=== PATIENT | male | born 1945 | race Caucasian/White ===

== ENCOUNTER → 2020-08-25 12:47 | Outpatient (BNVA) | payer MEDICARE, MEDICAID, SELFPAY | PROVIDERS: PCP Internal Medicine; Referring Provider Internal Medicine; Visit Provider Anesthesiology | DX: M16.12 Unilateral primary osteoarthritis, left hip (principal) | CPT/HCPCS: 99212 ==

== ENCOUNTER → 2021-09-08 11:53 | Outpatient (BNVA) | payer MEDICARE, MEDICAID, SELFPAY | PROVIDERS: Visit Provider Orthopaedic Surgery | DX: M16.12 Unilateral primary osteoarthritis, left hip (principal) | CPT/HCPCS: 99202 ==

== ENCOUNTER → 2021-09-13 12:44 | Outpatient (BNVA) | payer MEDICARE, MEDICAID, SELFPAY | PROVIDERS: PCP Internal Medicine; Visit Provider Orthopaedic Surgery | DX: Z01.812 Encounter for preprocedural laboratory examination (principal); Z01.810 Encounter for preprocedural cardiovascular examination; D68.51 Activated protein C resistance ==

== ENCOUNTER 2021-09-26 | Outpatient (REF) | payer MEDICARE, MEDICAID, SELFPAY ==
--- NOTE | 2021-09-14 09:02 | ECG_ITS ---
Test Reason : Z01.810 Blood Pressure : / mmHG Vent. Rate : 076 BPM Atrial Rate : 076 BPM P-R Int : 210 ms QRS Dur : 108 ms QT Int : 382 ms P-R-T Axes : 039 -34 036 degrees QTc Int : 429 ms Sinus rhythm with 1st degree A-V block Left anterior fascicular block Minimal voltage criteria for LVH, may be normal variant ( Thomas product ) Nonspecific T wave abnormality Abnormal ECG No previous ECGs available Referred By: Donato Albrecht Electronically Signed By:GEOVANNY MUHAMMAD MD
[2021-09-14 09:07] LABS: MANUAL DIFF FLAG NO
[2021-09-14 09:43] LABS: Basophils Absolute Auto 0.1 X10*3/uL (0.0-0.2); Basophils Percent Auto 0.9 % (0-2); Eosinophils Absolute Auto 0.3 X10*3/uL (0.0-0.4); Eosinophils Percent Auto 3.8 % (0-4); Hematocrit 41.1 % (42.0-52.0); Imm Gran Abs Auto 0.02 X10*3/uL (0.00-0.03); Imm Gran Pct Auto 0.2 % (0.0-0.4); Lymphocytes Absolute Auto 2.3 X10*3/uL (1.2-4.9); Lymphocytes Percent Auto 27.9 % (20-40); Mean Corpuscular HGB Conc 31.6 g/dl (31.0-36.0); Mean Corpuscular Hemoglobin 27.9 pg (27.0-33.0); Mean Corpuscular Volume 88.2 fL (80.0-98.0); Mean Platelet Volume 10.4 fL (9.4-12.4); Monocytes Absolute Auto 0.6 X10*3/uL (0.1-1.2); Monocytes Percent Auto 7.5 % (2-11); Neutrophils Absolute Auto 4.9 x10*3/uL (2.0-8.3); Neutrophils Percent Auto 59.7 % (45-73); Platelet Count 196 X10*3/uL (160-400); Red Blood Count 4.66 X10*6/uL (4.60-5.80); Red Cell Distribution Width 13.1 % (11.0-16.0); White Blood Count 8.2 X10*3/uL (4.8-10.8)
[2021-09-14 09:52] LABS: Estimated Average Glucose 186 mg/dL; Hemoglobin A1c % 8.1 %
[2021-09-14 10:23] LABS: Anion Gap 9 (12-20); Blood Urea Nitrogen 18 mg/dL (9-16); Calcium 9.1 mg/dL (8.4-10.2); Carbon Dioxide 29 mmol/L (22-29); Chloride 104 mmol/L (96-108); Estimated Glomerular Filt Rate 41; Glucose Random 325 mg/dL (60-115); Potassium 3.9 mmol/L (3.3-5.1); Sodium 138 mmol/L (135-145)
[2021-09-19 12:52] LABS: Mixing Study - PT 11.5 sec (9.0-11.5); PTT LA 37 sec (< OR = 40)
== END 2021-09-26 00:01 ==
LOC: HO.PAT
PROVIDERS: PCP Internal Medicine; Visit Provider Orthopaedic Surgery
DX: Z01.810 Encounter for preprocedural cardiovascular examination (principal); Z01.812 Encounter for preprocedural laboratory examination; M16.12 Unilateral primary osteoarthritis, left hip; I44.0 Atrioventricular block, first degree; I44.4 Left anterior fascicular block; R94.31 Abnormal electrocardiogram [ECG] [EKG]
CPT/HCPCS: 36415; 80048; 83036; 85025; 85611; 85732; 93005

== ENCOUNTER 2022-02-23 12:49 | Outpatient (REF) | payer MEDICARE, MEDICAID, SELFPAY ==
--- NOTE | ~2022-02-23 | XR_ITS ---
EXAMINATION: XR PELVIS CLINICAL INFORMATION: Hip pain. COMPARISON: None TECHNIQUE: AP view of the pelvis. FINDINGS: There is severe loss of left hip joint space with moderate perihepatic spurring. There is deformity of left femoral head with mild foreshortening of the left femoral neck. Mild loss of right hip joint space with periarticular spurring seen. Rest of the pelvis is unremarkable. XR/XR pelvis 1-2V IMPRESSION: Severe left hip degenerative osteoarthritic changes with hypertrophic spurring similar to previous study from 07/14/2020. Mild right hip degenerative arthritis.
== END 2022-02-23 12:50 | disposition home or self-care (01) ==
LOC: HO.HOSX 12:49
PROVIDERS: Visit Provider Physician Assistant
DX: Z01.818 Encounter for other preprocedural examination (principal); M16.12 Unilateral primary osteoarthritis, left hip
CPT/HCPCS: 72170; 99212

== ENCOUNTER 2022-02-28 12:16 | Inpatient (IN) | payer MEDICARE, MEDICAID, SELFPAY ==
[2022-02-21 12:10] VITALS: BP 148/69; PULSE 75; RESP 16; O2SAT 96; BMI 36.2
[2022-02-21 13:51] LABS: Hemoglobin 12.2 g/dl (14.0-18.0); Mean Corpuscular HGB Conc 32.1 g/dl (31.0-36.0); Mean Corpuscular Volume 87.2 fL (80.0-98.0); Mean Platelet Volume 9.2 fL (9.4-12.4); Platelet Count 211 X10*3/uL (160-400); Red Blood Count 4.36 X10*6/uL (4.60-5.80); Red Cell Distribution Width 13.7 % (11.0-16.0); White Blood Count 8.9 X10*3/uL (4.8-10.8)
[2022-02-21 13:54] LABS: INTERNATIONAL NORM RATIO 1.1 (0.9-1.1); Prothrombin Time 12.8 SEC (9.9-13.0)
[2022-02-21 14:29] LABS: Anion Gap 10 (12-20); Blood Urea Nitrogen 28 mg/dL (9-16); Calcium 9.5 mg/dL (8.4-10.2); Carbon Dioxide 31 mmol/L (22-29); Chloride 107 mmol/L (96-108); Creatinine Clr Calc Pharmacy 39.9; Estimated Glomerular Filt Rate 38; Glucose Random 93 mg/dL (60-115); Potassium 4.6 mmol/L (3.3-5.1); Sodium 143 mmol/L (135-145)
[2022-02-21 15:05] LABS: MRSA Nasal PCR NEGATIVE (Negative); SA Nasal PCR NEGATIVE (Negative)
--- NOTE | 2022-02-27 08:55 | HO.ANESPROP2 ---
Documented by User: Bonita Youssef NP 02/27/22 09:04 HPI - Anesthesia Eval Consult details Narrative: 76yo Left Hip Total Replacement PCP cleared Eliquis for Factor V with hx PE (Infrarenal IVC filter in situ) PMFSH Active Problems Active Problems: All Active Problems (Updated 02/21/22 @ 12:08 by Haylee Brunner, FARSHAD) Osteoarthritis of left hip (Acute) Factor V Leiden (Acute) Past Medical History Medical History Aftercare following left shoulder joint replacement surgery Cardiomyopathy Chronic kidney disease Constipation Diabetes Edema of both lower extremities History of diverticulosis Hx of deep venous thrombosis Hx pulmonary embolism Hypercholesteremia Hypertension Mild cognitive impairment Osteoarthritis Presence of IVC filter Surgical History Surgical History History of bilateral cataract extraction Hx of colonoscopy Hx of shoulder surgery Social History Social History Are you a primary career development associate to a significant other at home: No Do you presently have visiting nurse or other home services: No Patient Tobacco Use Status: Never used Tobacco Use of substances other than those prescribed or required for medical reasons: No Have you been hit, kicked, punched, or otherwise hurt by someone within the past year? If so, by whom?: No Are you DNR?: No Advance Directives: No Advance Directives Information Provided: Yes Advance Directives on File: No Recently lost weight without trying: No Poor oral hygiene: No (partial upper + lower) Current occupational status: retired Meds Allergies Allergy/AdvReac Type Severity Reaction Status Date / Time hydralazine Allergy Severe Nose Verified 02/23/22 13:15 Bleed, severe blood loss, hot flashes atorvastatin [From Lipitor] AdvReac Joint Pain Verified 02/23/22 13:15 Home Medications Medication Instructions Recorded Confirmed Last Taken Type amitriptyline 25 mg tablet 50 mg PO BEDTIME 08/25/20 02/21/22 Unknown History apixaban 2.5 mg tablet 2.5 mg PO BID 08/25/20 02/21/22 02/25/22 History cholecalciferol (vitamin D3) 50 50 mcg PO DAILY 08/25/20 02/21/22 Unknown History mcg (2,000 unit) tablet fluticasone propionate 50 2 spray INTRANASAL DAILY PRN 08/25/20 02/21/22 Unknown History mcg/actuation nasal spray,suspension furosemide 20 mg tablet 20 mg PO DAILY 08/25/20 02/21/22 Unknown History glipizide 5 mg tablet 5 mg PO BID 08/25/20 02/21/22 Unknown History losartan 50 mg tablet 50 mg PO DAILY 08/25/20 02/21/22 Unknown History memantine 10 mg tablet 10 mg PO BID 08/25/20 02/21/22 Unknown History omeprazole 20 mg capsule,delayed 20 mg PO DAILY 08/25/20 02/21/22 02/28/22 History release polyethylene glycol 3350 17 1 g PO BID PRN 08/25/20 02/21/22 Unknown History gram/dose oral powder tamsulosin 0.4 mg capsule 0.4 mg PO DAILY 08/25/20 02/21/22 Unknown History amlodipine 5 mg tablet (Norvasc) 7.5 mg PO DAILY 02/21/22 02/21/22 02/28/22 History cyanocobalamin (vitamin B-12) 1,000 mcg QMONTH 02/21/22 02/21/22 Unknown History 1,000 mcg/mL injection syringe carvedilol 25 mg tablet 1 tab BID 02/28/22 02/28/22 Unknown History pravastatin 40 mg tablet 1 tab DAILY 02/28/22 02/28/22 Unknown History Exam Exam Date and Time: February 27, 2022 0855 Height,Weight and Vital Signs: Height 5 ft 6 in Weight 101.9 kg Last Vital Signs Pulse 75 02/21/22 12:10 Resp 16 02/21/22 12:10 BP 148/69 H 02/21/22 12:10 Pulse Ox 96 02/21/22 12:10 Pertinent Lab Results Pertinent Lab Results: Laboratory Tests 02/21/22 02/21/22 02/21/22 12:30 13:35 13:35 WBC 8.9 RBC 4.36 L Hgb 12.2 L Hct 38.0 L MCV 87.2 MCH 28.0 MCHC 32.1 RDW 13.7 Plt Count 211 MPV 9.2 L Absolute Nucleated RBC 0.000 Nucleated RBC % (auto) 0.0 PT INR Sodium Potassium Chloride Carbon Dioxide Anion Gap BUN Creatinine Estim Creat Clear Calc Estimated GFR Random Glucose Calcium Nasal Screen MRSA (PCR) NEGATIVE Nasal S. aureus Screen NEGATIVE Nasal MRSA/S.aureus Interp SEE NOTE Blood Type A Positive Antibody Screen NEGATIVE 02/21/22 02/21/22 13:35 13:35 WBC RBC Hgb Hct MCV MCH MCHC RDW Plt Count MPV Absolute Nucleated RBC Nucleated RBC % (auto) PT 12.8 INR 1.1 Sodium 143 Potassium 4.6 Chloride 107 Carbon Dioxide 31 H Anion Gap 10 L BUN 28 H Creatinine 1.73 H Estim Creat Clear Calc 39.9 Estimated GFR 38 Random Glucose 93 D Calcium 9.5 Nasal Screen MRSA (PCR) Nasal S. aureus Screen Nasal MRSA/S.aureus Interp Blood Type Antibody Screen Narrative Narrative: EKG 01/2022 SR, prolonged NM, QT but mostly unchanged from prior tracings Nuc stress 06/2021 no scintigraphic evidence of stress-induced ischemia Echo 06/2021 1. LV size is normal 2. Mild concentric LVH 3. Overall LV systolic function nml with EF 55-60% 4. No obvious RWMA 5. Diastolic filling pattern indication impaired relaxation 6. LA is mildly dilated 7. Mild aortic sclerosis without stenosis 8. No significant change from 02/2019 study Assessment and Plan Assessment Anesthesia Assessment: Chart Reviewed Documented by User: Cy Andrade MD 02/28/22 17:24 HPI - Anesthesia Eval Consult details Narrative: 76yo Left Hip Total Replacement PCP cleared Non ischemic Cardiomyopathy Eliquis for Factor V with hx PE (Infrarenal IVC filter in situ) eliquis stopped 2 days ago . [facility] Past Medical History Medical History Aftercare following left shoulder joint replacement surgery Cardiomyopathy Chronic kidney disease Constipation Diabetes Edema of both lower extremities History of diverticulosis Hx of deep venous thrombosis Hx pulmonary embolism Hypercholesteremia Hypertension Mild cognitive impairment Osteoarthritis Presence of IVC filter Functional capacity: independent ambulation Family History Family history of problems with anesthesia: No Surgical History Surgical History History of bilateral cataract extraction Hx of colonoscopy Hx of shoulder surgery History of Problems with Anesthesia: No Social History Social History Are you a primary career development associate to a significant other at home: No Do you presently have visiting nurse or other home services: No Patient Tobacco Use Status: Never used Tobacco Use of substances other than those prescribed or required for medical reasons: No Have you been hit, kicked, punched, or otherwise hurt by someone within the past year? If so, by whom?: No Are you DNR?: No Advance Directives: No Advance Directives Information Provided: Yes Advance Directives on File: No Recently lost weight without trying: No Poor oral hygiene: No (partial upper + lower) Current occupational status: retired Meds Allergies Allergy/AdvReac Type Severity Reaction Status Date / Time hydralazine Allergy Severe Nose Verified 02/23/22 13:15 Bleed, severe blood loss, hot flashes atorvastatin [From Lipitor] AdvReac Joint Pain Verified 02/23/22 13:15 Home Medications Medication Instructions Recorded Confirmed Last Taken Type amitriptyline 25 mg tablet 50 mg PO BEDTIME 08/25/20 02/21/22 Unknown History apixaban 2.5 mg tablet 2.5 mg PO BID 08/25/20 02/21/22 02/25/22 History cholecalciferol (vitamin D3) 50 50 mcg PO DAILY 08/25/20 02/21/22 Unknown History mcg (2,000 unit) tablet fluticasone propionate 50 2 spray INTRANASAL DAILY PRN 08/25/20 02/21/22 Unknown History mcg/actuation nasal spray,suspension furosemide 20 mg tablet 20 mg PO DAILY 08/25/20 02/21/22 Unknown History glipizide 5 mg tablet 5 mg PO BID 08/25/20 02/21/22 Unknown History losartan 50 mg tablet 50 mg PO DAILY 08/25/20 02/21/22 Unknown History memantine 10 mg tablet 10 mg PO BID 08/25/20 02/21/22 Unknown History omeprazole 20 mg capsule,delayed 20 mg PO DAILY 08/25/20 02/21/22 02/28/22 History release polyethylene glycol 3350 17 1 g PO BID PRN 08/25/20 02/21/22 Unknown History gram/dose oral powder tamsulosin 0.4 mg capsule 0.4 mg PO DAILY 08/25/20 02/21/22 Unknown History amlodipine 5 mg tablet (Norvasc) 7.5 mg PO DAILY 02/21/22 02/21/22 02/28/22 History cyanocobalamin (vitamin B-12) 1,000 mcg QMONTH 02/21/22 02/21/22 Unknown History 1,000 mcg/mL injection syringe carvedilol 25 mg tablet 1 tab BID 02/28/22 02/28/22 Unknown History pravastatin 40 mg tablet 1 tab DAILY 02/28/22 02/28/22 Unknown History Exam Airway Mallampati Class: II TM Dist: >3cm Neck ROM: Full Partial: Upper and Lower Loose/Missing/Broken Teeth: Yes (Poor dentition ) Heart: S1, S2 Lungs: b/l breath sounds Assessment and Plan Assessment Anesthesia Assessment: Anesthesia Plan Discussed Final Anesthetic Review Family History of Problems with Anesthesia: No History of Problems with Anesthesia: No NPO: Yes ASA Class: III Final Preanesthetic Review: Meds/Allgs Chart Reviewed, Consent Obtained/Reviewed and Anes Risks/Benef Reviewed Patient Risk: High Procedure Risk: Intermediate Anesthetic Plan Anesthetic Plan: GA Disposition: Inp. Admit - Standard Bed
[2022-02-28] VITALS (11 sets, daily range): BP systolic 88–155; BP diastolic 49–78; PULSE 58–91; RESP 16–18; TEMP 36.1–36.6; O2SAT 94–99
--- NOTE | ~2022-02-28 | XR_ITS ---
EXAMINATION: XR PELVIS CLINICAL INFORMATION: Left total hip arthroplasty. COMPARISON: Pelvis exam 02/15/2022 TECHNIQUE: AP view of the pelvis. FINDINGS: Status post left hip replacement. Orthopedic components in position. No fracture or loosening. There is no dislocation. Surgical skin clips in the lateral side soft tissues of the hip. XR/XR pelvis 1-2V IMPRESSION: Status post left hip replacement.
--- NOTE | ~2022-02-28 | XR_ITS ---
EXAMINATION: XR CHEST CLINICAL INFORMATION: Fever COMPARISON: None TECHNIQUE: Frontal view of the chest was obtained. FINDINGS: The cardiac and mediastinal contours are normal. There is slight elevation of the left hemidiaphragm. The lungs are clear. There is no pleural effusion or pneumothorax. There are old left rib fractures. There are degenerative changes of the spine. XR/XR chest 1V IMPRESSION: No evidence for acute disease in the chest.
--- NOTE | ~2022-02-28 | NM_ITS ---
EXAMINATION: PULMONARY PERFUSION STUDY CLINICAL INFORMATION: Extensive DVTs, postop hypoxia. COMPARISON: No previous lung scan is available for comparison. A radiograph of the chest dated 03/03/2022 is the most recent chest radiograph available for comparison. TECHNIQUE: Following the intravenous administration of 4.0 mCi Tc-99m MAA an 8-view perfusion study was performed using a dual detector gamma scintillation camera. No ventilation images were obtained. FINDINGS: Perfusion images: No segmental perfusion defects are present. There is elevation of the left hemidiaphragm and the cardiac and mediastinum appear mildly dilated. There are no focal anatomic appearing perfusion defects. Minimal heterogeneity is present bilaterally. NM/NM pul perfusion IMPRESSION: Very low probability of pulmonary embolism.
[2022-02-28] MEDS: Lactated Ringers 1,000 ML 100 ML IVCONT ×2 (12:34→18:32)
[2022-02-28] MEDS: oxyCODONE HCl ER 10 MG TAB.ER.12H PO (12:44)
[2022-02-28 12:47] LABS: COVID-19 Test Negative (Negative)
[2022-02-28 12:47] LABS: Hematocrit 37.4 % (42.0-52.0)
--- NOTE | 2022-02-28 13:46 | MHC.SHP ---
Pre-Procedural Eval Section A Date of Service: 02/28/22 The patient is an INPATIENT: No Changes since office visit: Yes Patient answered all questions; No Cold of Flu in the past 2 weeks, No New Medical Problems and No Changes in Medication The History & Physical has been completed within 30 days and I have reviewed it.: Yes Section B Chief Complaint: LT MEGHAN Allergies: Allergies Allergy/AdvReac Type Severity Reaction Status Date / Time hydralazine Allergy Severe Nose Verified 02/23/22 13:15 Bleed, severe blood loss, hot flashes atorvastatin [From Lipitor] AdvReac Joint Pain Verified 02/23/22 13:15 Plan I have reviewed the history and physical and performed a pertinent physical examination on my patient. No changes have occurred unless specified.
[2022-02-28 15:01] LABS: Glucose, Whole Blood 127 mg/dL (60-115)
--- NOTE | 2022-02-28 16:36 | P.BOP_ITS ---
Brief Operative Note Date of Service: 02/28/22 Pre-op diagnosis: Left hip OA Post-op diagnosis: same Procedure: Left MEGHAN Implants: [employer] Trident2 60mm cup/2 35mm acetabular screws. Accolade2 #6 127 deg with + 5 CoCr 36 femoral head Surgeon: Donato Albrecht MD Anesthesia: GETA and local Was an Administrative Asst used for this Procedure?: Yes Administrative Asst: Lukasz Cuenca Estimated blood loss (mL): 200 IV fluids (mL): 1,000 Pathology: other Condition: stable Disposition: PACU
--- NOTE | 2022-02-28 17:07 | PHA.MEDREC ---
Pharmacy Consult ? Medication Reconciliation Pharmacy has completed the medication reconciliation.
[2022-02-28] MEDS: oxyCODONE HCl Immed Release 5 MG TABLET PO (17:45)
--- NOTE | 2022-02-28 20:07 | PC.NURSE ---
Patient arrived to the floor from surgery for R total hip, oxygen was 79% on 2.5 L NC, Increased to 4L and retook O2, it went up to 99. Family was concerned with the sob initially, PA aware and told me to re-assure the family that it was because of anesthesia medications, and would be fine.
[2022-02-28] MEDS: carvediloL 25 MG TABLET PO (20:38)
[2022-02-28] MEDS: Celecoxib 200 MG CAPSULE PO (20:38)
[2022-02-28] MEDS: Docusate Sodium 100 MG CAPSULE PO (20:38)
[2022-02-28] MEDS: Memantine HCl 10 MG TABLET PO (20:38)
[2022-02-28] MEDS: Amitriptyline HCl 50 MG TABLET PO (20:38)
[2022-02-28] MEDS: ceFAZolin Sodium/Dextrose,Iso 2 GM/50 ML PIGGYBACK IV (20:39)
[2022-03-01] MEDS: oxyCODONE HCl Immed Release 5 MG TABLET 10 MG PO ×4 (00:44→21:42)
[2022-03-01] MEDS: Lactated Ringers 1,000 ML 100 ML IVCONT (02:08)
[2022-03-01 03:30] VITALS: BP 128/77; PULSE 90; RESP 18; TEMP 36.3; O2SAT 97
[2022-03-01 06:15] LABS: MANUAL DIFF FLAG NO
[2022-03-01 06:20] LABS: Basophils Percent Auto 0.1 % (0-2); Hematocrit 32.2 % (42.0-52.0); Hemoglobin 10.2 g/dl (14.0-18.0); Imm Gran Abs Auto 0.05 X10*3/uL (0.00-0.03); Imm Gran Pct Auto 0.3 % (0.0-0.4); Lymphocytes Absolute Auto 1.4 X10*3/uL (1.2-4.9); Lymphocytes Percent Auto 9.9 % (20-40); Mean Corpuscular HGB Conc 31.7 g/dl (31.0-36.0); Mean Corpuscular Hemoglobin 28.3 pg (27.0-33.0); Mean Corpuscular Volume 89.2 fL (80.0-98.0); Monocytes Absolute Auto 0.9 X10*3/uL (0.1-1.2); Monocytes Percent Auto 6.1 % (2-11); Neutrophils Percent Auto 83.6 % (45-73); Platelet Count 187 X10*3/uL (160-400); Red Blood Count 3.61 X10*6/uL (4.60-5.80); Red Cell Distribution Width 13.8 % (11.0-16.0); White Blood Count 14.4 X10*3/uL (4.8-10.8)
[2022-03-01 06:58] LABS: Anion Gap 13 (12-20); Blood Urea Nitrogen 25 mg/dL (9-16); Calcium 8.8 mg/dL (8.4-10.2); Carbon Dioxide 25 mmol/L (22-29); Chloride 104 mmol/L (96-108); Creatinine Clr Calc Pharmacy 41.4; Estimated Glomerular Filt Rate 40; Glucose Fasting 210 mg/dL (60-99); Potassium 4.5 mmol/L (3.3-5.1); Sodium 137 mmol/L (135-145)
[2022-03-01 07:41] VITALS: BP 132/66; PULSE 86; RESP 18; TEMP 36.5; O2SAT 97
--- NOTE | 2022-03-01 07:47 | MHC.CM.PN ---
Addendum entered by Krystin Mccartney 03/01/22 09:33: CORRECTION :CONTACT NUMBER IS [phone] Addendum entered by Krystin Mccartney 03/01/22 08:44: MESSAGE LEFT FOR GIANCARLO AT NUMBER BELOW WITH A REQUEST FOR A CALL BACK TO COMPLETE ASSESSMENT. Original Note: PATIENT LIVES WITH AND DAUGHTER DAUGHTER AND SON ARE HCP AGENTS AND A COPY IS REQUESTED. HE RECENTLY OBTAINED A 4 WHEELED WALKER FOR THE HOME FAMILY PROVIDES TRANSPORTATION WHERE NEEDED. HE ASKS THAT CASE MANAGEMENT CONTACT HIS DAUGHTER./HCP GIANCARLO @ [phone] FOR ANY FURTHER QUESTIONS, HE IS FEELING CONFUSED RIGHT NOW CASE MANAGEMENT WILL FOLLOW UP AT A LATER HOUR AWAITING PT EVALUATION FOR DC PLANS IMM 03/01 IN CHART
--- NOTE | 2022-03-01 07:48 | PM.PNORT ---
Subjective Subjective Date of Service: 03/01/22 Interval history: POD1 s/p LTHA. Patient is resting in bed comfortably. No overnight events. Pain is well managed. No additional complaints. Physical Exam Vital Signs: Vital Signs: Last Vital Signs Temp 97.3 F 03/01/22 03:30 Pulse 90 03/01/22 03:30 Resp 18 03/01/22 03:30 BP 128/77 03/01/22 03:30 Pulse Ox 97 03/01/22 03:30 BMI result Body Mass Index 36.2 Const: General: cooperative, healthy appearing and no acute distress Resp: Effort & Inspection: normal respiratory effort and able to speak in complete sentences Cardio: Rate: regular rate Peripheral pulses: Peripheral pulses 2+ throughout GI: Palpation (GI): Soft to palpation Skin: Lesions: no lesions Rashes: no rashes Extrem: Other: Lt hip Aquacel is clean, dry, and intact. Patient able to dorsiflex and plantarflex. NVI. Procedures Date of Service Date of Service: 03/01/22 Progress Note: A&P Assessment and plan (1) Status post total hip replacement, left: Status: Acute Assessment and Plan: Continue pain mgmnt Begin ASA for dvt ppx begin PT for LTHA- WBAT Dispo planning-Pending PT eval, pain mgmnt Time Spent With Patient Time: Total time spent is greater than 50% in coordination of care (as documented) at patient's floor/unit and/or counseling patient: Quality Stroke Does the patient have a stroke diagnosis?: No VTE Prior VTE?: No VTE Risk Level:: Surgical - very high VTE Device Contraindication: N/A - Device Ordered VTE Drug Contraindication: N/A - Med Ordered
--- NOTE | 2022-03-01 08:52 | W.PM.OPN ---
Operative Note Operative Note Date of Service: 03/01/22 Narrative: Pre-op diagnosis: Left hip OA Post-op diagnosis: same Procedure: Left MEGHAN Implants: [place] Trident2 60mm cup/2 35mm acetabular screws. Accolade2 #6 127 deg with + 5 CoCr 36 femoral head Surgeon: Donato Albrecht MD Anesthesia: GETA and local Was an Top Bottom Attaching Machine Operator used for this Procedure?: Yes Top Bottom Attaching Machine Operator: Lukasz Cuenca Estimated blood loss (mL): 200 IV fluids (mL): 1,000 Pathology: other Condition: stable Disposition: PACU Procedure in detail: Patient was brought into the operating room and placed in the right lateral decubitus position. All bony prominences were well padded and the limb was prepped and draped in standard sterile fashion. Time-out was called to identify proper site procedure proper surgeon IV antibiotics and 1 g of transaxemic acid were administered. I began by making a curvilinear incision over the posterolateral aspect of the greater trochanter. Dissection was taken down to the tensor fascia which was incised in line with the incision and a Charnley retractor was placed. Cautery was used to maintain hemostasis. A werewolf device was also used. The hip was internally rotated and the external rotators were identified. The vessels were cauterized and a full-thickness capsular/external rotator layer was developed starting just proximal to the piriformis. This layer was tagged and a dull Hohmann retractor was placed underneath the neck. The head could not be dislocated because of the engaging osteophties and superior and posterior acetabular ostopphyts. The posterior and superior pseudoacetabulum was resected with an osteotome and the head and neck were cut in-situ. There were large osteophytes off the neck that engaged under the inferior lip of the acetabulum. An oseotome was used to remove this just proximal to the lesser. this allowed dislocation of the head and a rongeur and ostetome were used to remove the head, neck and clean up around the greater trochanter. I started with a 50 reamer to medialize and sequentially reamed up to a size 59 and impacted a 60 at approximately 45 degrees of inclination and 25 degrees of version. There was minimal posterosuperior acetabulum and so 2 35 mm acetabular screws were placed using standard AO technique. I then placed a 20 deg post lipped liner and turned my attention to the femur. I identified the piriformis insertion and used this as a starting point for my lennie cutter. The medius tendon was protected with a Hibs retractor. I then used a Charnley awl to identify the canal and a curved curette to remove the lateral bone. I irrigated copiously. I then sequentially broached in the patient's natural version to a size 6, 127 deg and placed my trial implants. Using a +5 trial head I took the hip through range of motion. I was satisfied with the stability and length. Therefore I removed all instrumentation and copiously irrigated. I placed my final femoral implant and again took the hip through range of motion and was satisfied with the stability and length usiung a +5. A final CoCr implant was impacted in place. I then irrigated for 3 minutes with iodine and performed a capsular closure with 2.0 fiberwire, Tena's fascia with 0 Vicryl, subcuticular with 2-0 Vicryl and the skin with natasha. Patient was placed into a sterile dressing. Radiographs were obtained at the completion of the case and I was satisfied with the component position. Patient was extubated brought to the recovery room in stable condition.
[2022-03-01] MEDS: Docusate Sodium 100 MG CAPSULE PO ×2 (09:05→21:11)
[2022-03-01] MEDS: Memantine HCl 10 MG TABLET PO ×2 (09:05→21:11)
[2022-03-01] MEDS: Celecoxib 200 MG CAPSULE PO ×2 (09:05→21:12)
[2022-03-01] MEDS: Tamsulosin HCL 0.4 MG CAPSULE PO (09:05)
[2022-03-01] MEDS: Omeprazole 20 MG CAPSULE.DR PO (09:06)
[2022-03-01] MEDS: carvediloL 25 MG TABLET PO ×2 (09:06→21:12)
--- NOTE | 2022-03-01 09:33 | MHC.CM.PN ---
SON KRISTIN IS IN ROOM. PATIENT GIVES PERMISSION TO SPEAK WITH SON. SON/HCP SAYS THAT PATIENT IS NOT COVID VACCINATED. PCP IS DR KIANNA GOMEZ OF [facility] UPDATE MADE IN QUICK TASK. FAMILY WANTS PATIENT HOME WITH SERVICES OVER SNF. AGREABLE TO SNF OR ACUTE IF RECOMMENDED AND WILL DISCUSS [facility] DC NEARS.
--- NOTE | 2022-03-01 10:05 | P.CONHOSP_ITS ---
History of Present Illness Data of Consult Service Date: 03/01/22 Primary Care Provider: Toy Velásquez MD HPI Reason for consult: Factor 5 Leiden, DM This is a 76 yo M with a PMH as outlined below who is admitted under the orthopedic services post [facility]. Medical consult requested for mgmt of medical issues. Pt is seen and examined in his room. He reports some pain with ambulation. Denies any chest pain or sob at rest. Does endorse HENDERSON while working with physical therapy. Denies fevers or chills. No cough. No abd pain. Review of Systems Review of Systems: negative except HPI [facility] Medical History Aftercare following left shoulder joint replacement surgery Cardiomyopathy Chronic kidney disease Constipation Diabetes Edema of both lower extremities History of diverticulosis Hx of deep venous thrombosis Hx pulmonary embolism Hypercholesteremia Hypertension Mild cognitive impairment Osteoarthritis Presence of IVC filter Functional capacity: independent ambulation Surgical History History of bilateral cataract extraction Hx of colonoscopy Hx of shoulder surgery Social History Household Members: Significant Other Housing: House Are you a primary child day care provider to a significant other at home: No Do you presently have visiting nurse or other home services: No Patient Tobacco Use Status: Never used Tobacco Use of substances other than those prescribed or required for medical reasons: No Currently Displaying Signs/Symptoms of Drug Intoxication Withdrawal: No Have you been hit, kicked, punched, or otherwise hurt by someone within the past year? If so, by whom?: No Are you DNR?: No Advance Directives: No Advance Directives Information Provided: Yes Advance Directives on File: No Do you have thoughts of harming others: None Do you have a plan to hurt others: No Plan Recently lost weight without trying: Yes How much weight loss: 2-13 pounds Poor oral hygiene: No (partial upper + lower) service: No Current occupational status: retired Meds Allergies Allergy/AdvReac Type Severity Reaction Status Date / Time hydralazine Allergy Severe Nose Verified 02/23/22 13:15 Bleed, severe blood loss, hot flashes atorvastatin [From Lipitor] AdvReac Joint Pain Verified 02/23/22 13:15 Active Medications: Current Medications Acetaminophen (Acetaminophen 325 Mg Tablet) 650 mg PO Q6H PRN PRN Reason: Pain, Mild (Pain Scale 1-3) Amitriptyline HCl (Amitriptyline Hcl 50 Mg Tablet) 50 mg PO BEDTIME [facility] Last Admin: 02/28/22 20:38 Dose: 50 mg Documented by: Carvedilol (Carvedilol 25 Mg Tablet) 25 mg PO BID [facility]; Protocol Last Admin: 03/01/22 09:06 Dose: 25 mg Documented by: Celecoxib (Celecoxib 200 Mg Capsule) 200 mg PO BID [facility] Last Admin: 03/01/22 09:05 Dose: 200 mg Documented by: Docusate Sodium (Docusate Sodium 100 Mg Capsule) 100 mg PO BID [facility] Last Admin: 03/01/22 09:05 Dose: 100 mg Documented by: Enoxaparin Sodium (Enoxaparin Sodium 40 Mg/0.4 Ml Syringe) 40 mg SUBCUT Q24H [facility] Fluticasone Propionate (Fluticasone Propionate Nasal 16 Gm [place]) 2 spray NOSTRIL-B DAILY PRN PRN Reason: Dry Nasal Passages Hydromorphone HCl (Hydromorphone Hcl 1 Mg/Ml Syringe) 0.25 mg IVPUSH Q4H PRN; Protocol PRN Reason: Pain, Severe (Pain Scale 7-10) Memantine (Memantine Hcl 10 Mg Tablet) 10 mg PO BID [facility] Last Admin: 03/01/22 09:05 Dose: 10 mg Documented by: Omeprazole (Omeprazole 20 Mg Capsule.) 20 mg PO DAILY [facility] Last Admin: 03/01/22 09:06 Dose: 20 mg Documented by: Ondansetron HCl (Ondansetron Hcl 4 Mg/2 Ml Vial) 4 mg IVPUSH Q8H PRN PRN Reason: Nausea and Vomiting Oxycodone HCl (Oxycodone Hcl Immed Release 5 Mg Tablet) 10 mg PO Q4H PRN PRN Reason: Pain, Moderate (Pain Scale 4-6 Last Admin: 03/01/22 06:18 Dose: 10 mg Documented by: Sodium Chloride (0.9 % Sodium Chloride Flush 3 Ml Syringe) 3 ml IVFLUSH QSHIFT [facility] Last Admin: 03/01/22 09:06 Dose: Not Given Documented by: Tamsulosin HCl (Tamsulosin Hcl 0.4 Mg Capsule) 0.4 mg PO DAILY [facility] Last Admin: 03/01/22 09:05 Dose: 0.4 mg Documented by: Home Medications Medication Instructions Recorded Confirmed Last Taken Type amitriptyline 25 mg tablet 50 mg PO BEDTIME 08/25/20 02/21/22 Unknown History apixaban 2.5 mg tablet 2.5 mg PO BID 08/25/20 02/21/22 02/25/22 History cholecalciferol (vitamin D3) 50 50 mcg PO DAILY 08/25/20 02/21/22 Unknown History mcg (2,000 unit) tablet fluticasone propionate 50 2 spray INTRANASAL DAILY PRN 08/25/20 02/21/22 Unknown History mcg/actuation nasal spray,suspension furosemide 20 mg tablet 20 mg PO DAILY 08/25/20 02/21/22 Unknown History glipizide 5 mg tablet 5 mg PO BID 08/25/20 02/21/22 Unknown History losartan 50 mg tablet 50 mg PO DAILY 08/25/20 02/21/22 Unknown History memantine 10 mg tablet 10 mg PO BID 08/25/20 02/21/22 Unknown History omeprazole 20 mg capsule,delayed 20 mg PO DAILY 08/25/20 02/21/22 02/28/22 History release polyethylene glycol 3350 17 1 g PO BID PRN 08/25/20 02/21/22 Unknown History gram/dose oral powder tamsulosin 0.4 mg capsule 0.4 mg PO DAILY 08/25/20 02/21/22 Unknown History amlodipine 5 mg tablet (Norvasc) 7.5 mg PO DAILY 02/21/22 02/21/22 02/28/22 History cyanocobalamin (vitamin B-12) 1,000 mcg QMONTH 02/21/22 02/21/22 Unknown History 1,000 mcg/mL injection syringe carvedilol 25 mg tablet 1 tab BID 02/28/22 02/28/22 Unknown History pravastatin 40 mg tablet 1 tab DAILY 02/28/22 02/28/22 Unknown History Physical Exam Vital Signs and Narrative: Vital Signs: Last Vital Signs Temp 97.7 F 03/01/22 07:41 Pulse 86 03/01/22 07:41 Resp 18 03/01/22 07:41 BP 132/66 03/01/22 07:41 Pulse Ox 97 03/01/22 07:41 BMI result Body Mass Index 36.2 Const: Other: General - no acute distress, appears comfortable Cardiovascular - regular rate and rhythm, S1-S2 Lungs - normal respiratory effort, clear to auscultation bilaterally, no wheezing Abdomen - soft, nontender, no rebound or guarding Extremities - no edema bilaterally Neuro - awake and alert, no focal deficits Results Labs CBC and Chem 7: 03/01/22 05:23 03/01/22 05:23 Labs: Laboratory Results - last 24 hr 02/28/22 02/28/22 03/01/22 12:22 12:38 05:23 MCV 89.2 MCH 28.3 MCHC 31.7 RDW 13.8 Plt Count 187 MPV 10.0 Immature Gran % (Auto) 0.3 Neut % (Auto) 83.6 H Lymph % (Auto) 9.9 L [place] % (Auto) 6.1 Eos % (Auto) 0.0 Baso % (Auto) 0.1 Lymph # (Auto) 1.4 [place] # (Auto) 0.9 Eos # (Auto) 0.0 Baso # (Auto) 0.0 Abs Immat Gran (auto) 0.05 H Absolute Neuts (auto) 12.0 H Absolute Nucleated RBC 0.000 Nucleated RBC % (auto) 0.0 Anion Gap Estim Creat Clear Calc Estimated GFR POC Glucose 127 H Fasting Glucose Calcium COVID-19 (YVETTE) Negative COVID-19 Clin Com See Note 03/01/22 05:23 MCV MCH MCHC RDW Plt Count MPV Immature Gran % (Auto) Neut % (Auto) Lymph % (Auto) [place] % (Auto) Eos % (Auto) Baso % (Auto) Lymph # (Auto) [place] # (Auto) Eos # (Auto) Baso # (Auto) Abs Immat Gran (auto) Absolute Neuts (auto) Absolute Nucleated RBC Nucleated RBC % (auto) Anion Gap 13 Estim Creat Clear Calc 41.4 Estimated GFR 40 POC Glucose Fasting Glucose 210 H Calcium 8.8 D COVID-19 (YVETTE) COVID-19 Clin Com Imaging Radiologist's Impressions: Impressions Pelvis X-Ray 02/28/22 16:30 IMPRESSION: Status post left hip replacement. Assessment and Plan (1) Factor V Leiden: Status: Acute Plan This is a 76 yo M with a PMH as outlined below who is admitted under the orthopedic services post [facility]. Medical consult requested for mgmt of medical issues. 1. History of PE / Factor V Leiden def. Resume Eliquis (renally dosed) when okay from surgical persepctive agree with subut. Lovenox in the interim 2. DM hold oral meds use sliding scale (ordered) check POC (ordered) 3. HTN continue coreg agree with holding norvasc today, re-eval tomorrow 4. CKD 3 monitor renal function discontinue IVF 5. Mild cognitive impairment continue baseline meds 6. Cardiomyopathy d/c IVF continue baseline meds Full Code DVT pptx -- Eluqis when able (Lovenox for now) Will follow the patient with you.
[2022-03-01 11:51] VITALS: BP 114/59; PULSE 80; RESP 18; TEMP 36.7; O2SAT 96
[2022-03-01 11:57] LABS: Glucose, Whole Blood 212 mg/dL (60-115)
[2022-03-01] MEDS: 0.9 % Sodium Chloride Flush 3 ML SYRINGE IVFLUSH (14:16)
[2022-03-01] MEDS: Enoxaparin Sodium 40 MG/0.4 ML SYRINGE SUBCUT (14:16)
--- NOTE | 2022-03-01 15:28 | HO.POSTANES ---
Post Anesthesia Evaluation Post Anesthesia Evaluation Vital Signs: Vital Signs Temp Pulse Resp BP Pulse Ox 03/01/22 11:51 98.1 F 80 18 114/59 L 96 03/01/22 07:41 97.7 F 86 18 132/66 97 03/01/22 03:30 97.3 F 90 18 128/77 97 Anesthesia: General Mental Status: Awake Pain Control: Satisfactory Nausea/Vomiting: None Hydration: Adequate Anesthesia-Related Issues: No Anes. Related Issues
[2022-03-01 15:42] VITALS: BP 110/51; PULSE 84; RESP 18; TEMP 36.6; O2SAT 94
[2022-03-01 16:12] LABS: Glucose, Whole Blood 132 mg/dL (60-115)
[2022-03-01 19:50] VITALS: BP 112/53; PULSE 87; RESP 17; TEMP 36.8; O2SAT 92
[2022-03-01 20:25] LABS: Glucose, Whole Blood 136 mg/dL (60-115)
[2022-03-01] MEDS: Amitriptyline HCl 50 MG TABLET PO (21:12)
[2022-03-01] MEDS: polyethylene glycoL 3350 17 GM POWD.PACK PO (22:44)
[2022-03-01 23:27] VITALS: BP 99/55; PULSE 83; RESP 16; TEMP 36.6; O2SAT 92
[2022-03-02] MEDS: 0.9 % Sodium Chloride Flush 3 ML SYRINGE IVFLUSH ×2 (00:19→11:22)
[2022-03-02 03:18] VITALS: BP 104/55; PULSE 86; RESP 16; TEMP 36.8; O2SAT 93
[2022-03-02 05:43] LABS: MANUAL DIFF FLAG NO
[2022-03-02 05:45] LABS: Basophils Percent Auto 0.2 % (0-2); Eosinophils Percent Auto 0.1 % (0-4); Hematocrit 26.1 % (42.0-52.0); Hemoglobin 8.2 g/dl (14.0-18.0); Imm Gran Abs Auto 0.05 X10*3/uL (0.00-0.03); Imm Gran Pct Auto 0.4 % (0.0-0.4); Lymphocytes Percent Auto 16.6 % (20-40); Mean Corpuscular HGB Conc 31.4 g/dl (31.0-36.0); Mean Corpuscular Hemoglobin 27.9 pg (27.0-33.0); Mean Corpuscular Volume 88.8 fL (80.0-98.0); Mean Platelet Volume 9.7 fL (9.4-12.4); Monocytes Absolute Auto 1.4 X10*3/uL (0.1-1.2); Monocytes Percent Auto 11.1 % (2-11); Neutrophils Absolute Auto 8.8 x10*3/uL (2.0-8.3); Neutrophils Percent Auto 71.6 % (45-73); Platelet Count 162 X10*3/uL (160-400); Red Blood Count 2.94 X10*6/uL (4.60-5.80); Red Cell Distribution Width 14.3 % (11.0-16.0); White Blood Count 12.3 X10*3/uL (4.8-10.8)
[2022-03-02 06:03] LABS: Anion Gap 12 (12-20); Blood Urea Nitrogen 43 mg/dL (9-16); Calcium 8.4 mg/dL (8.4-10.2); Carbon Dioxide 24 mmol/L (22-29); Chloride 106 mmol/L (96-108); Creatinine Clr Calc Pharmacy 26.8; Estimated Glomerular Filt Rate 24; Glucose Fasting 143 mg/dL (60-99); Potassium 3.9 mmol/L (3.3-5.1); Sodium 138 mmol/L (135-145)
[2022-03-02 07:42] LABS: Glucose, Whole Blood 122 mg/dL (60-115)
[2022-03-02 07:43] VITALS: BP 112/56; PULSE 83; RESP 17; TEMP 37; O2SAT 92
--- NOTE | 2022-03-02 09:07 | P.DS_ITS ---
DS: Providers Provider Date of Service: 03/02/22 Date of admission: 02/28/22 12:16 Primary care physician: Toy Velásquez MD Consults: 02/28/22 17:42 Consult to Hospitalist Routine Consulting Provider: Hospitalist Reason For Exam: FACTOR 5 LEIDEN, DM DS: Diagnosis Discharge Diagnosis (1) Factor V Leiden: Status: Acute DS: Summary Hospital Course Hospital Course: The patient underwent a successful left total hip arthroplasty, they were transferred to PACU and then to the floor to recover. During their stay, their vitals were stable, afebrile at 98.6. Labs were unremarkable, H/H 8.2/26.1. POD 1 they were started on Lovenox for DVT ppx, they also received Physical Therapy services twice a day. Prior to discharge, their dressing was changed, incision clean dry and intact, new Aquacel dressing applied and the plan was to be discharged home with VNA services. Time Spent with Patient Time attestation: Total time spent providing and/or coordinating discharge services: Discharge coordination time: Less than 30 minutes Quality: Safe Use of Opioids Does Pt have an Active Cancer Diagnosis on the Problem List?: No Quality: Stroke Does the patient have a stroke diagnosis?: No Physical Exam Vital Signs: Vital Signs: Last Vital Signs Temp 98.6 F 03/02/22 07:43 Pulse 83 03/02/22 07:43 Resp 17 03/02/22 07:43 BP 112/56 L 03/02/22 07:43 Pulse Ox 92 03/02/22 07:43 BMI result Body Mass Index 36.2 Const: General: cooperative, healthy appearing and no acute distress Resp: Effort & Inspection: normal respiratory effort and able to speak in complete sentences Cardio: Rate: regular rate Peripheral pulses: Peripheral pulses 2+ throughout GI: Palpation (GI): Soft to palpation Skin: Lesions: no lesions Rashes: no rashes Extrem: Other: Left hip natasha intact. Incision site is well approximated. No drained. No erythema. New Aquacel dressing applied. NVI. DS: Data Data Completed and Pending Pending studies at discharge: Pending at discharge 02/28/22 16:14 Surgical [PTH] Routine Labs on day of discharge: Laboratory Results - last 24 hr 03/01/22 03/01/22 03/01/22 11:48 15:44 19:53 WBC RBC Hgb Hct MCV MCH MCHC RDW Plt Count MPV Immature Gran % (Auto) Neut % (Auto) Lymph % (Auto) [place] % (Auto) Eos % (Auto) Baso % (Auto) Lymph # (Auto) [place] # (Auto) Eos # (Auto) Baso # (Auto) Abs Immat Gran (auto) Absolute Neuts (auto) Absolute Nucleated RBC Nucleated RBC % (auto) Sodium Potassium Chloride Carbon Dioxide Anion Gap BUN Creatinine Estim Creat Clear Calc Estimated GFR POC Glucose 212 H 132 H 136 H Fasting Glucose Calcium 03/02/22 03/02/22 03/02/22 05:27 05:27 07:27 WBC 12.3 H RBC 2.94 L Hgb 8.2 L Hct 26.1 L MCV 88.8 MCH 27.9 MCHC 31.4 RDW 14.3 Plt Count 162 MPV 9.7 Immature Gran % (Auto) 0.4 Neut % (Auto) 71.6 Lymph % (Auto) 16.6 L [place] % (Auto) 11.1 H Eos % (Auto) 0.1 Baso % (Auto) 0.2 Lymph # (Auto) 2.0 [place] # (Auto) 1.4 H Eos # (Auto) 0.0 Baso # (Auto) 0.0 Abs Immat Gran (auto) 0.05 H Absolute Neuts (auto) 8.8 H Absolute Nucleated RBC 0.000 Nucleated RBC % (auto) 0.0 Sodium 138 Potassium 3.9 Chloride 106 Carbon Dioxide 24 Anion Gap 12 BUN 43 H D Creatinine 2.58 H Estim Creat Clear Calc 26.8 Estimated GFR 24 POC Glucose 122 H Fasting Glucose 143 H Calcium 8.4 Discharge Plan Discharge Patient Disposition: Home Health Service Discharge Diagnosis: s/p LTHA Referrals: Lukasz Cuenca PA-C [Physician Manager Metrology] - 2 Weeks (03/16/22 1:30 [facility] Orth[facility] Surgeons Lukasz Cuenca PA-C) Discharge Medications: New docusate sodium 100 mg Capsule 100 mg PO BID 30 Days Qty: 60 0RF oxycodone 10 mg tablet 10 mg PO Q4H PRN (Reason: Pain, Moderate (Pain Scale 4-6) 7 Days Qty: 42 0RF acetaminophen 325 mg Tablet 650 mg PO Q6H PRN (Reason: Pain, Mild (Pain Scale 1-3)) 30 Days Qty: 240 0RF enoxaparin 40 mg/0.4 mL Syringe 40 mg subcut Q24H 42 Days Qty: 16.8 0RF Continued amlodipine [Norvasc] 5 mg Tablet 7.5 mg PO DAILY 0RF cyanocobalamin (vitamin B-12) 1,000 mcg/mL Syringe 1,000 mcg QMONTH 0RF carvedilol 25 mg tablet 1 tab BID 0RF pravastatin 40 mg tablet 1 tab DAILY 0RF amitriptyline 25 mg tablet 50 mg PO BEDTIME 0RF apixaban 2.5 mg tablet 2.5 mg PO BID 0RF fluticasone propionate 50 mcg/actuation spray,suspension 2 spray intranasal DAILY PRN (Reason: Dry Nasal Passages) 0RF furosemide 20 mg tablet 20 mg PO DAILY 0RF glipizide 5 mg tablet 5 mg PO BID 0RF losartan 50 mg tablet 50 mg PO DAILY 0RF memantine 10 mg tablet 10 mg PO BID 0RF omeprazole 20 mg capsule,delayed release(DR/EC) 20 mg PO DAILY 0RF polyethylene glycol 3350 17 gram/dose powder 1 g PO BID PRN (Reason: Constipation) 0RF tamsulosin 0.4 mg capsule 0.4 mg PO DAILY 0RF cholecalciferol (vitamin D3) 50 mcg (2,000 unit) tablet 50 mcg PO DAILY 0RF (DME) walker [facility] See Rx Instructions .MEDSUPPLY Qty: 1 0RF Rx Instructions: Folding Front wheeled walker Discharge Orders: Discharge Order (Routine); Ordered 03/02/22 Ordered By: Lukasz Cuenca Diet: regular diet Activity on Discharge: Use cane or walker Stand Alone Forms: Patient Portal Discharge page Care Plan Goals: Restore function of joint Health Concerns: None Plan of Treatment: Physical Therapy Pain management DVT prophylaxis Assessment: * Physical Therapy for Total hip arthroplasty: wbat, posterior precautions, gait training, ROM, strength * Limit stair climbing * No showering, no tub bath-keep dressing clean, dry and intact * No driving x6 weeks * Resume Eliquis * Follow up with [facility] Orthopedics in 2 weeks: * --you will also have your first out patient PT eval on the day of your post op appt-so please plan on being in the office that day for an extended period of time.
--- NOTE | 2022-03-02 09:27 | HO.PM.IMPN ---
Subjective Subjective Date of Service: 03/02/22 Interval History: seen and examined this morning follow up after left hip replacement pain under adequate control denies any abdominal pain, nausea, vomiting no shortness of breath or chest pain at this time Review of Systems Review of Systems: Yes all other systems are reviewed and are negative Constitutional Constitutional: Denies chills and Denies fever(s) Cardiovascular Cardiovascular: Denies chest pain and Denies palpitations Respiratory Respiratory: Denies cough Gastrointestinal Gastrointestinal: Denies abdominal pain, Denies nausea and Denies vomiting Endocrine Endocrine: Denies palpitations Physical Exam Vital Signs: Vital Signs: Last Vital Signs Temp 98.6 F 03/02/22 07:43 Pulse 83 03/02/22 07:43 Resp 17 03/02/22 07:43 BP 112/56 L 03/02/22 07:43 Pulse Ox 92 03/02/22 07:43 BMI result Body Mass Index 36.2 Const: General: cooperative, comfortable, alert and awake Nutritional Appearance: overweight Eyes: Pupils: Equal, round and reactive pupils present EOM: EOMs intact bilaterally Resp: Effort & Inspection: normal respiratory effort and able to speak in complete sentences Auscultation: clear to auscultation bilaterally Cardio: Rate: regular rate Heart sounds: S1 normal heart sound present and S2 normal heart sound present GI: Inspection: No distended Palpation (GI): Soft to palpation and nontender Neuro: Cranial nerves: Yes Equal, round and reactive pupils present Extrem: Other: some staining to left hip bandage General: Yes no pedal edema Objective Data Active Medications Acetaminophen (Acetaminophen 325 Mg Tablet) 650 mg PO Q6H PRN PRN Reason: Pain, Mild (Pain Scale 1-3) Amitriptyline HCl (Amitriptyline Hcl 50 Mg Tablet) 50 mg PO BEDTIME [facility] Last Admin: 03/01/22 21:12 Dose: 50 mg Documented by: ARTIS Carvedilol (Carvedilol 25 Mg Tablet) 25 mg PO BID [facility]; Protocol Last Admin: 03/01/22 21:12 Dose: 25 mg Documented by: ARTIS Docusate Sodium (Docusate Sodium 100 Mg Capsule) 100 mg PO BID [facility] Last Admin: 03/01/22 21:11 Dose: 100 mg Documented by: ARTIS Enoxaparin Sodium (Enoxaparin Sodium 40 Mg/0.4 Ml Syringe) 40 mg SUBCUT Q24H [facility] Last Admin: 03/01/22 14:16 Dose: 40 mg Documented by: VALENTÍN Fluticasone Propionate (Fluticasone Propionate Nasal 16 Gm [place]) 2 spray NOSTRIL-B DAILY PRN PRN Reason: Dry Nasal Passages Hydromorphone HCl (Hydromorphone Hcl 1 Mg/Ml Syringe) 0.25 mg IVPUSH Q4H PRN; Protocol PRN Reason: Pain, Severe (Pain Scale 7-10) Lactated Ringer's (Lr) 1,000 mls @ 80 mls/hr IVCONT .[id number] [facility] Insulin Human Lispro (Insulin Lispro 100 Unit/Ml 3 Ml Vial) 0 unit SUBCUT QIDACHS [facility]; Protocol Last Admin: 03/02/22 07:44 Dose: Not Given Documented by: OZZIE Non-Admin Reason: No Insulin Coverage Memantine (Memantine Hcl 10 Mg Tablet) 10 mg PO BID [facility] Last Admin: 03/01/22 21:11 Dose: 10 mg Documented by: ARTIS Omeprazole (Omeprazole 20 Mg Capsule.) 20 mg PO DAILY [facility] Last Admin: 03/01/22 09:06 Dose: 20 mg Documented by: VALENTÍN Ondansetron HCl (Ondansetron Hcl 4 Mg/2 Ml Vial) 4 mg IVPUSH Q8H PRN PRN Reason: Nausea and Vomiting Oxycodone HCl (Oxycodone Hcl Immed Release 5 Mg Tablet) 10 mg PO Q4H PRN PRN Reason: Pain, Moderate (Pain Scale 4-6 Last Admin: 03/01/22 21:42 Dose: 10 mg Documented by: ARTIS Polyethylene Glycol (Polyethylene Glycol 3350 17 Gm Powd.Pack) 17 gm PO BID [facility] Last Admin: 03/01/22 22:44 Dose: 17 gm Documented by: ARTIS Sodium Chloride (0.9 % Sodium Chloride Flush 3 Ml Syringe) 3 ml IVFLUSH QSHIFT [facility] Last Admin: 03/02/22 00:19 Dose: 3 ml Documented by: YO Tamsulosin HCl (Tamsulosin Hcl 0.4 Mg Capsule) 0.4 mg PO DAILY [facility] Last Admin: 03/01/22 09:05 Dose: 0.4 mg Documented by: VALENTÍN Labs CBC & Chem 7: 03/02/22 05:27 03/02/22 05:27 Labs: Laboratory Results - last 24 hr 03/01/22 03/01/22 03/01/22 11:48 15:44 19:53 MCV MCH MCHC RDW Plt Count MPV Immature Gran % (Auto) Neut % (Auto) Lymph % (Auto) [place] % (Auto) Eos % (Auto) Baso % (Auto) Lymph # (Auto) [place] # (Auto) Eos # (Auto) Baso # (Auto) Abs Immat Gran (auto) Absolute Neuts (auto) Absolute Nucleated RBC Nucleated RBC % (auto) Anion Gap Estim Creat Clear Calc Estimated GFR POC Glucose 212 H 132 H 136 H Fasting Glucose Calcium 03/02/22 03/02/22 03/02/22 05:27 05:27 07:27 MCV 88.8 MCH 27.9 MCHC 31.4 RDW 14.3 Plt Count 162 MPV 9.7 Immature Gran % (Auto) 0.4 Neut % (Auto) 71.6 Lymph % (Auto) 16.6 L [place] % (Auto) 11.1 H Eos % (Auto) 0.1 Baso % (Auto) 0.2 Lymph # (Auto) 2.0 [place] # (Auto) 1.4 H Eos # (Auto) 0.0 Baso # (Auto) 0.0 Abs Immat Gran (auto) 0.05 H Absolute Neuts (auto) 8.8 H Absolute Nucleated RBC 0.000 Nucleated RBC % (auto) 0.0 Anion Gap 12 Estim Creat Clear Calc 26.8 Estimated GFR 24 POC Glucose 122 H Fasting Glucose 143 H Calcium 8.4 Assessment and Plan (1) Factor V Leiden: Status: Acute (2) Acute kidney injury superimposed on CKD: Status: Acute Plan This is a 76 yo M with a PMH as outlined below who is admitted under the orthopedic services post [facility]. Medical consult requested for mgmt of medical issues. FANTA on CKD 3 creatinine up to 2.58 will resume gentle IVF avoid nephrotoxins - lasix, losartan on hold follow renal function, if no improvement will consider nephrology consult Acute blood loss anemia likely secondary to loss from surgery follow H/H History of PE / Factor V Leiden def. Resume Eliquis (renally dosed) when okay from surgical perspective, plan for 48 hrs post surgery agree with subut. Lovenox in the interim DM hold oral meds (glipizide) continue sliding scale check POC HTN continue coreg agree with holding norvasc today, re-eval tomorrow Mild cognitive impairment continue memantine Cardiomyopathy lasix on hold monitor fluid status closely while receiving fluids gerd continue prilosec BPH continue tamsulosin Full Code DVT pptx -- Eluqis when able (Lovenox for now) Attending: Dr. Nguyen Quality Stroke Does the patient have a stroke diagnosis?: No VTE Prior VTE?: No VTE Risk Level:: Surgical - very high VTE Device Contraindication: N/A - Device Ordered VTE Drug Contraindication: N/A - Med Ordered
[2022-03-02] MEDS: Lactated Ringers 1,000 ML 80 ML IVCONT ×2 (10:50→22:33)
[2022-03-02] MEDS: polyethylene glycoL 3350 17 GM POWD.PACK PO (11:21)
[2022-03-02] MEDS: carvediloL 25 MG TABLET PO ×2 (11:22→21:13)
[2022-03-02] MEDS: Omeprazole 20 MG CAPSULE.DR PO (11:22)
[2022-03-02] MEDS: Tamsulosin HCL 0.4 MG CAPSULE PO (11:22)
[2022-03-02] MEDS: Memantine HCl 10 MG TABLET PO ×2 (11:22→21:13)
[2022-03-02] MEDS: Docusate Sodium 100 MG CAPSULE PO ×2 (11:22→21:12)
[2022-03-02 11:34] VITALS: BP 117/56; PULSE 84; RESP 17; TEMP 36.9; O2SAT 97
[2022-03-02 11:39] LABS: Glucose, Whole Blood 125 mg/dL (60-115)
--- NOTE | 2022-03-02 14:59 | MHC.CM.PN ---
patients discharge held for today secondary to abnormal labs, patient informed as well as the liason for the [facility] discharge plan home tomorrow with the [facility] for nursing for ranulfo cortez teach to daughter and home physical therapy
[2022-03-02 15:17] VITALS: BP 121/60; PULSE 90; RESP 18; TEMP 36.5; O2SAT 97
[2022-03-02 16:14] LABS: Glucose, Whole Blood 160 mg/dL (60-115)
[2022-03-02] MEDS: Enoxaparin Sodium 40 MG/0.4 ML SYRINGE SUBCUT (17:16)
--- NOTE | 2022-03-02 19:18 | PC.NURSE ---
Patient daughter here, instructed on administration of lovenox. Patient Daughter Bridget adminsitered injection properly. All questions addressed.
[2022-03-02 19:28] VITALS: BP 128/59; PULSE 91; RESP 18; TEMP 37.2; O2SAT 93
[2022-03-02] MEDS: oxyCODONE HCl Immed Release 5 MG TABLET 10 MG PO (21:12)
[2022-03-02] MEDS: Amitriptyline HCl 50 MG TABLET PO (21:13)
[2022-03-02 21:29] LABS: Glucose, Whole Blood 152 mg/dL (60-115)
[2022-03-02 23:38] VITALS: BP 139/65; PULSE 96; RESP 17; TEMP 37.2; O2SAT 94
--- NOTE | 2022-03-02 23:39 | PC.NURSE ---
iv leaking in left forarm. New 22g inserted into right hand.
[2022-03-03] VITALS (10 sets, daily range): BP systolic 102–197; BP diastolic 51–76; PULSE 67–92; RESP 16–20; TEMP 36.6–38.6; O2SAT 82–96
[2022-03-03 06:17] LABS: MANUAL DIFF FLAG NO
[2022-03-03 06:22] LABS: Basophils Absolute Auto 0.1 X10*3/uL (0.0-0.2); Basophils Percent Auto 0.5 % (0-2); Eosinophils Absolute Auto 0.2 X10*3/uL (0.0-0.4); Eosinophils Percent Auto 1.7 % (0-4); Hematocrit 25.2 % (42.0-52.0); Imm Gran Abs Auto 0.05 X10*3/uL (0.00-0.03); Imm Gran Pct Auto 0.5 % (0.0-0.4); Lymphocytes Absolute Auto 2.3 X10*3/uL (1.2-4.9); Mean Corpuscular HGB Conc 31.7 g/dl (31.0-36.0); Mean Corpuscular Hemoglobin 28.6 pg (27.0-33.0); Mean Platelet Volume 10.1 fL (9.4-12.4); Monocytes Absolute Auto 1.1 X10*3/uL (0.1-1.2); Monocytes Percent Auto 10.3 % (2-11); Neutrophils Absolute Auto 6.9 x10*3/uL (2.0-8.3); Platelet Count 165 X10*3/uL (160-400); White Blood Count 10.6 X10*3/uL (4.8-10.8)
[2022-03-03 07:05] LABS: Anion Gap 9 (12-20); Blood Urea Nitrogen 39 mg/dL (9-16); Calcium 8.4 mg/dL (8.4-10.2); Carbon Dioxide 27 mmol/L (22-29); Chloride 106 mmol/L (96-108); Creatinine Clr Calc Pharmacy 35.2; Estimated Glomerular Filt Rate 33; Glucose Fasting 169 mg/dL (60-99); Potassium 3.8 mmol/L (3.3-5.1); Sodium 138 mmol/L (135-145)
--- NOTE | 2022-03-03 07:43 | P.PNOP_ITS ---
Subjective Subjective Date of Service: 03/03/22 Interval history: POD3 s/p LTHA. Patient resting in bed comfortably no overnight events. Pain is well managed. D/C was held yesterday due to FANTA. Medicine continues to follow. Physical Exam Vital Signs: Vital Signs: Last Vital Signs Temp 99.2 F 03/03/22 07:10 Pulse 88 03/03/22 07:10 Resp 20 03/03/22 07:10 BP 145/65 H 03/03/22 07:10 Pulse Ox 91 L 03/03/22 07:10 BMI result Body Mass Index 36.2 Const: General: cooperative, healthy appearing and no acute distress Resp: Effort & Inspection: normal respiratory effort and able to speak in complete sentences Cardio: Rate: regular rate Peripheral pulses: Peripheral pulses 2+ throughout GI: Palpation (GI): Soft to palpation Skin: Lesions: no lesions Rashes: no rashes Extrem: Other: Left hip Aquacel is clean, dry, and intact. Patient is able to dorsiflex and p lantarflex. NVI Procedures Date of Service Date of Service: 03/03/22 Progress Note: A&P Assessment and plan (1) Acute kidney injury superimposed on CKD: Status: Acute Assessment and Plan: Continue pain mgmnt Resume Eliquis for dvt ppx Continue PT for LTHA Dispo planning-Pain management. D/C was held yesterday due to FANTA. Medicine continues to follow. (2) Status post total hip replacement, left: Status: Acute Time Spent With Patient Time: Total time spent is greater than 50% in coordination of care (as documented) at patient's floor/unit and/or counseling patient: Quality Stroke Does the patient have a stroke diagnosis?: No VTE Prior VTE?: No VTE Risk Level:: Surgical - very high VTE Device Contraindication: N/A - Device Ordered VTE Drug Contraindication: N/A - Med Ordered
[2022-03-03 08:16] LABS: Glucose, Whole Blood 145 mg/dL (60-115)
[2022-03-03] MEDS: carvediloL 25 MG TABLET PO ×2 (09:40→20:26)
[2022-03-03] MEDS: Memantine HCl 10 MG TABLET PO ×2 (09:40→20:26)
[2022-03-03] MEDS: Docusate Sodium 100 MG CAPSULE PO ×2 (09:40→20:26)
[2022-03-03] MEDS: oxyCODONE HCl Immed Release 5 MG TABLET 10 MG PO ×2 (09:40→16:10)
[2022-03-03] MEDS: Omeprazole 20 MG CAPSULE.DR PO (09:40)
[2022-03-03] MEDS: Tamsulosin HCL 0.4 MG CAPSULE PO (09:40)
[2022-03-03] MEDS: Apixaban 2.5 MG TABLET PO ×2 (09:40→20:26)
[2022-03-03] MEDS: polyethylene glycoL 3350 17 GM POWD.PACK PO ×2 (09:42→20:28)
--- NOTE | 2022-03-03 11:28 | HO.PM.IMPN ---
Subjective Subjective Date of Service: 03/03/22 Interval History: seen and examined this morning follow up for FANTA, anemia, left hip replacement no overnight events denies sob, cough; pain under adequate control Review of Systems Review of Systems: Yes all other systems are reviewed and are negative Constitutional Constitutional: Denies chills and Denies fever(s) Cardiovascular Cardiovascular: Denies chest pain, Denies palpitations and Denies dyspnea Respiratory Respiratory: Denies cough and Denies dyspnea Gastrointestinal Gastrointestinal: Denies abdominal pain, Denies diarrhea, Denies nausea and Denies vomiting Endocrine Endocrine: Denies palpitations Physical Exam Vital Signs: Vital Signs: Last Vital Signs Temp 99.2 F 03/03/22 11:20 Pulse 87 03/03/22 11:20 Resp 20 03/03/22 11:20 BP 144/67 H 03/03/22 11:20 Pulse Ox 90 L 03/03/22 11:20 BMI result Body Mass Index 36.2 Const: General: cooperative, comfortable, alert and awake Nutritional Appearance: overweight Eyes: Pupils: Equal, round and reactive pupils present EOM: EOMs intact bilaterally Resp: Effort & Inspection: normal respiratory effort and able to speak in complete sentences Cardio: Rate: regular rate Heart sounds: S1 normal heart sound present and S2 normal heart sound present GI: Inspection: No distended Palpation (GI): Soft to palpation and nontender Neuro: Cranial nerves: Yes Equal, round and reactive pupils present Extrem: General: Yes no pedal edema Objective Data Active Medications Acetaminophen (Acetaminophen 325 Mg Tablet) 650 mg PO Q6H PRN PRN Reason: Pain, Mild (Pain Scale 1-3) Amitriptyline HCl (Amitriptyline Hcl 50 Mg Tablet) 50 mg PO BEDTIME [facility] Last Admin: 03/02/22 21:13 Dose: 50 mg Documented by: JAYCE Apixaban (Apixaban 2.5 Mg Tablet) 2.5 mg PO BID [facility] Last Admin: 03/03/22 09:40 Dose: 2.5 mg Documented by: MOON Carvedilol (Carvedilol 25 Mg Tablet) 25 mg PO BID [facility]; Protocol Last Admin: 03/03/22 09:40 Dose: 25 mg Documented by: MOON Docusate Sodium (Docusate Sodium 100 Mg Capsule) 100 mg PO BID [facility] Last Admin: 03/03/22 09:40 Dose: 100 mg Documented by: MOON Fluticasone Propionate (Fluticasone Propionate Nasal 16 Gm [place]) 2 spray NOSTRIL-B DAILY PRN PRN Reason: Dry Nasal Passages Hydromorphone HCl (Hydromorphone Hcl 1 Mg/Ml Syringe) 0.25 mg IVPUSH Q4H PRN; Protocol PRN Reason: Pain, Severe (Pain Scale 7-10) Insulin Human Lispro (Insulin Lispro 100 Unit/Ml 3 Ml Vial) 0 unit SUBCUT QIDACHS [facility]; Protocol Last Admin: 03/03/22 08:44 Dose: Not Given Documented by: MOON Non-Admin Reason: No Insulin Coverage Memantine (Memantine Hcl 10 Mg Tablet) 10 mg PO BID [facility] Last Admin: 03/03/22 09:40 Dose: 10 mg Documented by: MOON Omeprazole (Omeprazole 20 Mg Capsule.Dr) 20 mg PO DAILY [facility] Last Admin: 03/03/22 09:40 Dose: 20 mg Documented by: MOON Ondansetron HCl (Ondansetron Hcl 4 Mg/2 Ml Vial) 4 mg IVPUSH Q8H PRN PRN Reason: Nausea and Vomiting Oxycodone HCl (Oxycodone Hcl Immed Release 5 Mg Tablet) 10 mg PO Q4H PRN PRN Reason: Pain, Moderate (Pain Scale 4-6 Last Admin: 03/03/22 09:40 Dose: 10 mg Documented by: MOON Polyethylene Glycol (Polyethylene Glycol 3350 17 Gm Powd.Pack) 17 gm PO BID [facility] Last Admin: 03/03/22 09:42 Dose: 17 gm Documented by: MOON Sodium Chloride (0.9 % Sodium Chloride Flush 3 Ml Syringe) 3 ml IVFLUSH QSHIFT [facility] Last Admin: 03/03/22 09:41 Dose: Not Given Documented by: MOON Non-Admin Reason: IV Running Tamsulosin HCl (Tamsulosin Hcl 0.4 Mg Capsule) 0.4 mg PO DAILY [facility] Last Admin: 03/03/22 09:40 Dose: 0.4 mg Documented by: MOON Labs CBC & Chem 7: 03/03/22 05:53 03/03/22 05:53 Labs: Laboratory Results - last 24 hr 03/02/22 03/02/22 03/02/22 11:33 16:08 21:25 MCV MCH MCHC RDW Plt Count MPV Immature Gran % (Auto) Neut % (Auto) Lymph % (Auto) [place] % (Auto) Eos % (Auto) Baso % (Auto) Lymph # (Auto) [place] # (Auto) Eos # (Auto) Baso # (Auto) Abs Immat Gran (auto) Absolute Neuts (auto) Absolute Nucleated RBC Nucleated RBC % (auto) Anion Gap Estim Creat Clear Calc Estimated GFR POC Glucose 125 H 160 H 152 H Fasting Glucose Calcium 03/03/22 03/03/22 03/03/22 05:53 05:53 08:02 MCV 90.0 MCH 28.6 MCHC 31.7 RDW 14.0 Plt Count 165 MPV 10.1 Immature Gran % (Auto) 0.5 H Neut % (Auto) 65.0 Lymph % (Auto) 22.0 [place] % (Auto) 10.3 Eos % (Auto) 1.7 Baso % (Auto) 0.5 Lymph # (Auto) 2.3 [place] # (Auto) 1.1 Eos # (Auto) 0.2 Baso # (Auto) 0.1 Abs Immat Gran (auto) 0.05 H Absolute Neuts (auto) 6.9 Absolute Nucleated RBC 0.000 Nucleated RBC % (auto) 0.0 Anion Gap 9 L Estim Creat Clear Calc 35.2 Estimated GFR 33 POC Glucose 145 H Fasting Glucose 169 H Calcium 8.4 Assessment and Plan (1) Acute kidney injury superimposed on CKD: Status: Acute Plan This is a 76 yo M with a PMH as outlined below who is admitted under the orthopedic services post L MEGHAN. Medical consult requested for mgmt of medical issues. FANTA on CKD 3 creatinine down to 1.96, close to baseline. will stop IVF. Recommend to hold lasix and losartan on discharge. Should follow up with PCP and repeat BMP within the next week. Avoid NSAIDs. Acute blood loss anemia likely secondary to loss from surgery. H/H stable overnight. Recommend to recheck CBC within the next week and follow up with PCP. History of PE / Factor V Leiden def. Resume Eliquis (renally dosed) when okay from surgical perspective, plan for 48 hrs post surgery agree with subut. Lovenox in the interim DM Resume home regimen on discharge. HTN continue coreg, can resume norvasc. Mild cognitive impairment continue memantine Cardiomyopathy lasix on hold. Should monitor fluid status closely while lasix is on hold. gerd continue prilosec BPH continue tamsulosin Full Code DVT pptx -- Cheryl Attending: Dr. Nguyen Quality Stroke Does the patient have a stroke diagnosis?: No VTE Prior VTE?: No VTE Risk Level:: Surgical - very high VTE Device Contraindication: N/A - Device Ordered VTE Drug Contraindication: N/A - Med Ordered
--- NOTE | 2022-03-03 11:36 | MHC.INPTTRAN ---
WBAT Pain controlled with oxycodone. Took stool softeners, no BM yet. voiding good. Keep dsg dry. Use incentive spir.
[2022-03-03 11:38] LABS: Glucose, Whole Blood 160 mg/dL (60-115)
--- NOTE | 2022-03-03 12:31 | MHC.CM.PN ---
Addendum entered by Cecelia Bravo 03/03/22 14:49: recived call from [facility] they need face to face for homept i texted to the hospitalsit and they noted to texted ortho for which i did not response t/c to the [facility] li[place] to inform her tocall the office for fcr to face to be able to go out tomorrow for home pt Original Note: nurse family preservation caseworker note patient was dischagred home today with his his lovenox was discontinued and he was restarted on his eliquis per hospitlais t now there is not need for the vna the hvna liacarmen will call to daughter to inform her patient is no longer ion the lovenox and patiens case will be opend by pt startinfg tomorrwo discharge plan home with hvna for jus home pt 9THIS DIFFERS THAN THE ORIGINAL PLAN FROM YESTERDAY
--- NOTE | 2022-03-03 15:45 | W.MHC.F2F ---
Service Date Service Date: 03/03/22 Encounter Date of encounter: 03/03/22 Reasons for Services Signs and symptoms assessed: left hip pain, weakness, poor balance, Reason for physical therapy: home safety and mobility, therapeutic exercises, restore joint function, gait/transfer training, ADL training and energy conservation Reason for occupational therapy: home safety and mobility, therapeutic exercises, restore joint function, gait/transfer training, ADL training and energy conservation Homebound: Leaving the home is medically contraindicated at this time without the asist of a device and/or another person due th the listed conditions above and below. Reason homebound: unsteady gait / fall risk, pain with ambulation, poor balance / fall risk and unable to drive Certification: Based on the above findings, I certify that this patient is confined to the home and needs intermittent half-way care, physical therapy and/or speech therapy, or continues to need occupational therapy. The patient is under my care, and I have initiated the establishment of the plan of care. The patient will be followed by a physician who will periodically review the plan of care.
[2022-03-03 15:54] LABS: Glucose, Whole Blood 148 mg/dL (60-115)
[2022-03-03] MEDS: Acetaminophen 325 MG TABLET 650 MG PO (16:10)
[2022-03-03] MEDS: amLODIPine Besylate 5 MG TABLET PO (16:10)
[2022-03-03] MEDS: 0.9 % Sodium Chloride Flush 3 ML SYRINGE IVFLUSH (16:11)
[2022-03-03 17:05] LABS: Lactic Acid 2.4 mmol/L (0.5-2.0)
[2022-03-03 18:07] LABS: Appearance Urine CLEAR; Color Urine YELLOW; Glucose Urine UA NEG (NEG); Leukocyte Esterase Urine NEG (NEG); Nitrite Urine NEG (NEG); UACC Culture Trigger NO; Urine Blood TRACE (NEG); Urine Ketones NEG (NEG); Urine Protein TRACE MG/DL (NEG-TRACE)
[2022-03-03 18:20] LABS: Hyaline Casts Urine 0-2 /LPF; Squamous Epithelial Cell Urine TRACE /LPF
[2022-03-03 18:21] LABS: Amorphous Sediment Urine TRACE /LPF
[2022-03-03 18:22] LABS: Bacteria Urine TRACE /LPF; RBC Urine 0-2 /HPF (0); WBC Urine 0-2 /HPF (0-4)
[2022-03-03 18:23] LABS: Mucus Urine TRACE /LPF
[2022-03-03 18:30] LABS: Reflex Lactate? Lactic Acid Added
[2022-03-03] MEDS: 0.9 % Sodium Chloride 250 ML 500 ML IV (18:39)
[2022-03-03 19:21] LABS: ~Lactic Acid-LAB USE ONLY 1.6 mmol/L (0.5-2.0)
[2022-03-03] MEDS: Amitriptyline HCl 50 MG TABLET PO (20:26)
[2022-03-03 20:37] LABS: Glucose, Whole Blood 134 mg/dL (60-115)
[2022-03-04] VITALS (7 sets, daily range): BP systolic 121–144; BP diastolic 58–67; PULSE 81–94; RESP 16–18; TEMP 36.7–37.5; O2SAT 90–93
[2022-03-04] MEDS: 0.9 % Sodium Chloride Flush 3 ML SYRINGE IVFLUSH ×4 (02:47→20:40)
[2022-03-04 05:46] LABS: Hematocrit 25.5 % (42.0-52.0); Mean Corpuscular HGB Conc 31.4 g/dl (31.0-36.0); Mean Corpuscular Hemoglobin 28.5 pg (27.0-33.0); Mean Corpuscular Volume 90.7 fL (80.0-98.0); Platelet Count 185 X10*3/uL (160-400); Red Blood Count 2.81 X10*6/uL (4.60-5.80); White Blood Count 10.5 X10*3/uL (4.8-10.8)
[2022-03-04 06:05] LABS: Anion Gap 13 (12-20); Blood Urea Nitrogen 34 mg/dL (9-16); Calcium 8.6 mg/dL (8.4-10.2); Carbon Dioxide 24 mmol/L (22-29); Chloride 106 mmol/L (96-108); Creatinine Clr Calc Pharmacy 40.2; Estimated Glomerular Filt Rate 39; Glucose Random 140 mg/dL (60-115); Sodium 139 mmol/L (135-145)
[2022-03-04 07:26] LABS: Glucose, Whole Blood 136 mg/dL (60-115)
[2022-03-04] MEDS: Memantine HCl 10 MG TABLET PO ×2 (09:01→20:29)
[2022-03-04] MEDS: Omeprazole 20 MG CAPSULE.DR PO (09:01)
[2022-03-04] MEDS: Docusate Sodium 100 MG CAPSULE PO ×2 (09:01→20:29)
[2022-03-04] MEDS: carvediloL 25 MG TABLET PO ×2 (09:01→20:30)
[2022-03-04] MEDS: Tamsulosin HCL 0.4 MG CAPSULE PO (09:01)
[2022-03-04] MEDS: Apixaban 2.5 MG TABLET PO ×2 (09:01→20:30)
[2022-03-04 10:04] LABS: Adenovirus PCR Not Detected (Not Detect.); Bordetella parapertussis PCR Not Detected (Not Detect.); Bordetella pertussis PCR Not Detected (Not Detect.); Chlamydia pneumoniae PCR Not Detected (Not Detect.); Coronavirus 229E PCR Not Detected (Not Detect.); Coronavirus HKU1 PCR Not Detected (Not Detect.); Coronavirus NL63 PCR Not Detected (Not Detect.); Coronavirus OC43 PCR Not Detected (Not Detect.); Human metapneumovirus PCR Not Detected (Not Detect.); Influenza A PCR Not Detected (Not Detect.); Influenza B PCR Not Detected (Not Detect.); Mycoplasma pneumoniae PCR Not Detected (Not Detect.); Parainfluenza 1 PCR Not Detected (Not Detect.); Parainfluenza 2 PCR Not Detected (Not Detect.); Parainfluenza 3 PCR Not Detected (Not Detect.); Parainfluenza 4 PCR Not Detected (Not Detect.); RSV PCR Not Detected (Not Detect.); Rhino/Enterovirus PCR Not Detected (Not Detect.); SARS-CoV-2 PCR Not Detected (Not Detect.)
--- NOTE | 2022-03-04 10:46 | P.PNIM_ITS ---
Subjective Subjective Date of Service: 03/04/22 <АНДРЕЙ Reddy - Last Filed: 03/04/22 11:01> 03/05/22 <Berlin Valdez MD - Last Filed: 03/05/22 08:20> Interval History: seen and examined this morning follow up for left total hip no further fever low o2 documented overnight, patient is asymptomatic <АНДРЕЙ Reddy - Last Filed: 03/04/22 11:01> Review of Systems Review of Systems: Yes all other systems are reviewed and are negative <АНДРЕЙ Reddy - Last Filed: 03/04/22 11:01> Constitutional Constitutional: Denies chills and Denies fever(s) <АНДРЕЙ Reddy - Last Filed: 03/04/22 11:01> Cardiovascular Cardiovascular: Denies chest pain, Denies palpitations and Denies dyspnea <АНДРЕЙ Reddy - Last Filed: 03/04/22 11:01> Respiratory Respiratory: Denies cough and Denies dyspnea <АНДРЕЙ Reddy - Last Filed: 03/04/22 11:01> Gastrointestinal Gastrointestinal: Denies abdominal pain, Denies nausea and Denies vomiting <АНДРЕЙ Urbano - Last Filed: 03/04/22 11:01> Endocrine Endocrine: Denies palpitations <АНДРЕЙ Reddy - Last Filed: 03/04/22 11:01> Physical Exam Vital Signs: Vital Signs: Last Vital Signs Temp 99.5 F 03/04/22 06:55 Pulse 87 03/04/22 06:55 Resp 18 03/04/22 06:55 BP 139/63 03/04/22 06:55 Pulse Ox 90 L 03/04/22 06:55 BMI result Body Mass Index 36.2 <АНДРЕЙ Reddy Last Filed: 03/04/22 11:01> Const: General: cooperative, comfortable, alert and awake <АНДРЕЙ Reddy - Last Filed: 03/04/22 11:01> Nutritional Appearance: overweight <АНДРЕЙ Reddy Last Filed: 03/04/22 11:01> Eyes: Pupils: Equal, round and reactive pupils present <АНДРЕЙ Reddy - Last Filed: 03/04/22 11:01> EOM: EOMs intact bilaterally <АНДРЕЙ Reddy - Last Filed: 03/04/22 11:01> Resp: Effort & Inspection: normal respiratory effort and able to speak in complete sentences <АНДРЕЙ Reddy - Last Filed: 03/04/22 11:01> Auscultation: clear to auscultation bilaterally <АНДРЕЙ Reddy - Last Filed: 03/04/22 11:01> Cardio: Rate: regular rate <АНДРЕЙ Reddy - Last Filed: 03/04/22 11:01> Heart sounds: S1 normal heart sound present and S2 normal heart sound present <АНДРЕЙ Reddy - Last Filed: 03/04/22 11:01> GI: Inspection: No distended <АНДРЕЙ Reddy - Last Filed: 03/04/22 11:01> Palpation (GI): Soft to palpation and nontender <АНДРЕЙ Reddy - Last Filed: 03/04/22 11:01> Neuro: Cranial nerves: Yes Equal, round and reactive pupils present <АНДРЕЙ Reddy - Last Filed: 03/04/22 11:01> Extrem: Other: scd boots in place b/l lower extremities; trace leg edema <АНДРЕЙ Reddy Last Filed: 03/04/22 11:01> Objective Data Active Medications Acetaminophen (Acetaminophen 325 Mg Tablet) 650 mg PO Q6H PRN PRN Reason: Pain, Mild (Pain Scale 1-3) Last Admin: 03/03/22 16:10 Dose: 650 mg Documented by: SAVI Albuterol/Ipratropium (Albuterol/Iprat 2.5/0.5mg 3 Ml Ampul.Neb) 3 ml INHALE Q6H PRN PRN Reason: Shortness of Breath Amitriptyline HCl (Amitriptyline Hcl 50 Mg Tablet) 50 mg PO BEDTIME REPLACED BY [facility] Last Admin: 03/03/22 20:26 Dose: 50 mg Documented by: FANTASMA Apixaban (Apixaban 2.5 Mg Tablet) 2.5 mg PO BID [facility] Last Admin: 03/04/22 09:01 Dose: 2.5 mg Documented by: JAYCE Carvedilol (Carvedilol 25 Mg Tablet) 25 mg PO BID [facility]; Protocol Last Admin: 03/04/22 09:01 Dose: 25 mg Documented by: JAYCE Docusate Sodium (Docusate Sodium 100 Mg Capsule) 100 mg PO BID [facility]PLACED BY [facility] Last Admin: 03/04/22 09:01 Dose: 100 mg Documented by: JAYCE Fluticasone Propionate (Fluticasone Propionate Nasal 16 Gm [place]) 2 spray NO STRIL-B DAILY PRN PRN Reason: Dry Nasal Passages Hydromorphone HCl (Hydromorphone Hcl 1 Mg/Ml Syringe) 0.25 mg IVPUSH Q4H PRN; Protocol PRN Reason: Pain, Severe (Pain Scale 7-10) Insulin Human Lispro (Insulin Lispro 100 Unit/Ml 3 Ml Vial) 0 unit SUBCUT QIDACHS REPLACED BY [facility]; Protocol Last Admin: 03/04/22 08:38 Dose: Not Given Documented by: JAYCE Non-Admin Reason: No Insulin Coverage Memantine (Memantine Hcl 10 Mg Tablet) 10 mg PO BID [facility]PL[facility] Last Admin: 03/04/22 09:01 Dose: 10 mg Documented by: JAYCE Omeprazole (Omeprazole 20 Mg Capsule.Dr) 20 mg PO DAILY [facility]PL[facility]ED [facility] Last Admin: 03/04/22 09:01 Dose: 20 mg Documented by: JAYCE Ondansetron HCl (Ondansetron Hcl 4 Mg/2 Ml Vial) 4 mg IVPUSH Q8H PRN PRN Reason: Nausea and Vomiting Oxycodone HCl (Oxycodone Hcl Immed Release 5 Mg Tablet) 10 mg PO Q4H PRN PRN Reason: Pain, Moderate (Pain Scale 4-6 Last Admin: 03/03/22 16:10 Dose: 10 mg Documented by: SAVI Polyethylene Glycol (Polyethylene Glycol 3350 17 Gm Powd.Pack) 17 gm PO BID [facility]PL[facility]ED [facility] Last Admin: 03/04/22 09:02 Dose: Not Given Documented by: JAYCE Non-Admin Reason: Patient Refused Sodium Chloride (0.9 % Sodium Chloride Flush 3 Ml Syringe) 3 ml IVFLUSH QSHIFT REPLACED BY [facility] Last Admin: 03/04/22 09:02 Dose: 3 ml Documented by: JAYCE Tamsulosin HCl (Tamsulosin Hcl 0.4 Mg Capsule) 0.4 mg PO DAILY [facility] Last Admin: 03/04/22 09:01 Dose: 0.4 mg Documented by: JAYCE <АНДРЕЙ Reddy - Last Filed: 03/04/22 11:01> Labs CBC & Chem 7: : 03/04/22 05:27 03/04/22 05:27 <АНДРЕЙ Reddy - Last Filed: 03/04/22 11:01> Labs: Laboratory Results - last 24 hr 03/03/22 03/03/22 03/03/22 11:24 15:45 16:26 MCV MCH MCHC RDW Plt Count MPV Absolute Nucleated RBC Nucleated RBC % (auto) Anion Gap Estim Creat Clear Calc Estimated GFR POC Glucose 160 H 148 H Random Glucose Lactic Acid 2.4 H* Lactic Acid F/U @ 2Hr Calcium Urine Color Urine Appearance Urine pH Ur Specific [place] Urine Protein Urine Glucose (UA) Urine Ketones Urine Blood Urine Nitrite Ur Leukocyte Esterase Urine RBC Urine WBC Ur Squamous Epith Cells Amorphous Sediment Urine Bacteria Hyaline Casts Urine Mucus Respiratory Panel [place] Adenovirus (Rapid PCR) B.pert (TEM-PCR) B.parapertussis DNA PCR C. pneumoniae DNA (PCR) Coronavirus OC43 (PCR) Coronavirus HKU1 (PCR) Coronavirus 229E (PCR) Coronavirus NL63 (PCR) Human Metapneumovir PCR Influenza A (RT-PCR) Influenza B (RT-PCR) M. pneumoniae (PCR) Parainfluenza 1 (PCR) Parainfluenza 2 (PCR) Parainfluenza 3 (PCR) Parainfluenza 4 (PCR) RSV (PCR) Entero/Rhino (PCR) SARS-CoV-2 RNA (RT-PCR) 03/03/22 03/03/22 03/03/22 17:45 17:45 18:40 MCV MCH MCHC RDW Plt Count MPV Absolute Nucleated RBC Nucleated RBC % (auto) Anion Gap Estim Creat Clear Calc Estimated GFR POC Glucose Random Glucose Lactic Acid Lactic Acid F/U @ 2Hr 1.6 Calcium Urine Color YELLOW Urine Appearance CLEAR Urine pH 6.0 Ur Specific [place] 1.020 Urine Protein TRACE Urine Glucose (UA) NEG Urine Ketones NEG Urine Blood TRACE Urine Nitrite NEG Ur Leukocyte Esterase NEG Urine RBC 0-2 Urine WBC 0-2 Ur Squamous Epith Cells TRACE Amorphous Sediment TRACE Urine Bacteria TRACE Hyaline Casts 0-2 Urine Mucus TRACE Respiratory Panel [place] See Note Adenovirus (Rapid PCR) Not Detected B.pert (TEM-PCR) Not Detected B.parapertussis DNA PCR Not Detected C. pneumoniae DNA (PCR) Not Detected Coronavirus OC43 (PCR) Not Detected Coronavirus HKU1 (PCR) Not Detected Coronavirus 229E (PCR) Not Detected Coronavirus NL63 (PCR) Not Detected Human Metapneumovir PCR Not Detected Influenza A (RT-PCR) Not Detected Influenza B (RT-PCR) Not Detected M. pneumoniae (PCR) Not Detected Parainfluenza 1 (PCR) Not Detected Parainfluenza 2 (PCR) Not Detected Parainfluenza 3 (PCR) Not Detected Parainfluenza 4 (PCR) Not Detected RSV (PCR) Not Detected Entero/Rhino (PCR) Not Detected SARS-CoV-2 RNA (RT-PCR) Not Detected 03/03/22 03/04/22 03/04/22 20:30 05:27 05:27 MCV 90.7 MCH 28.5 MCHC 31.4 RDW 14.0 Plt Count 185 MPV 10.0 Absolute Nucleated RBC 0.000 Nucleated RBC % (auto) 0.0 Anion Gap 13 Estim Creat Clear Calc 40.2 Estimated GFR 39 POC Glucose 134 H Random Glucose 140 H D Lactic Acid Lactic Acid F/U @ 2Hr Calcium 8.6 Urine Color Urine Appearance Urine pH Ur Specific [place] Urine Protein Urine Glucose (UA) Urine Ketones Urine Blood Urine Nitrite Ur Leukocyte Esterase Urine RBC Urine WBC Ur Squamous Epith Cells Amorphous Sediment Urine Bacteria Hyaline Casts Urine Mucus Respiratory Panel [place] Adenovirus (Rapid PCR) B.pert (TEM-PCR) B.parapertussis DNA PCR C. pneumoniae DNA (PCR) Coronavirus OC43 (PCR) Coronavirus HKU1 (PCR) Coronavirus 229E (PCR) Coronavirus NL63 (PCR) Human Metapneumovir PCR Influenza A (RT-PCR) Influenza B (RT-PCR) M. pneumoniae (PCR) Parainfluenza 1 (PCR) Parainfluenza 2 (PCR) Parainfluenza 3 (PCR) Parainfluenza 4 (PCR) RSV (PCR) Entero/Rhino (PCR) SARS-CoV-2 RNA (RT-PCR) 03/04/22 07:01 MCV MCH MCHC RDW Plt Count MPV Absolute Nucleated RBC Nucleated RBC % (auto) Anion Gap Estim Creat Clear Calc Estimated GFR POC Glucose 136 H Random Glucose Lactic Acid Lactic Acid F/U @ 2Hr Calcium Urine Color Urine Appearance Urine pH Ur Specific [place] Urine Protein Urine Glucose (UA) Urine Ketones Urine Blood Urine Nitrite Ur Leukocyte Esterase Urine RBC Urine WBC Ur Squamous Epith Cells Amorphous Sediment Urine Bacteria Hyaline Casts Urine Mucus Respiratory Panel [place] Adenovirus (Rapid PCR) B.pert (TEM-PCR) B.parapertussis DNA PCR C. pneumoniae DNA (PCR) Coronavirus OC43 (PCR) Coronavirus HKU1 (PCR) Coronavirus 229E (PCR) Coronavirus NL63 (PCR) Human Metapneumovir PCR Influenza A (RT-PCR) Influenza B (RT-PCR) M. pneumoniae (PCR) Parainfluenza 1 (PCR) Parainfluenza 2 (PCR) Parainfluenza 3 (PCR) Parainfluenza 4 (PCR) RSV (PCR) Entero/Rhino (PCR) SARS-CoV-2 RNA (RT-PCR) <АНДРЕЙ Reddy - Last Filed: 03/04/22 11:01> Assessment and Plan (1) Hypoxia: Status: Acute <АНДРЕЙ Reddy - Last Filed: 03/04/22 11:01> Plan This is a 76 yo M with a PMH as outlined below who is admitted under the orthopedic services post L MEGHAN. Medical consult requested for mgmt of medical issues. Fever isolated fever of 101.5 likely secondary to atelectasis in the post op setting CXR, UA negative, RPP negative FANTA on CKD 3 creatinine down to 1.72, close to baseline. Recommend to hold losartan on discharge. Should follow up with PCP and repeat BMP within the next week. Avoid NSAIDs. Acute respiratory failure with hypoxia had one reading of 82 overnight, unclear if accurate this am 90% on room air. patient without respiratory symptoms CXR negative will obtain home o2 eval Acute blood loss anemia likely secondary to loss from surgery. H/H stable. Recommend to recheck CBC within the next week and follow up with PCP. History of PE / Factor V Leiden def. Resumed on Eliquis DM Resume home regimen on discharge. HTN continue coreg, can resume norvasc. Mild cognitive impairment continue memantine Cardiomyopathy lasix on hold. Should monitor fluid status closely while lasix is on hold. gerd continue prilosec BPH continue tamsulosin Full Code DVT pptx -- Cheryl Attending: Dr. Valdez <АНДРЕЙ Reddy - Last Filed: 03/04/22 11:01> Quality Stroke Does the patient have a stroke diagnosis?: No <АНДРЕЙ Reddy - Last Filed: 03/04/22 11:01> VTE Prior VTE?: No <АНДРЕЙ Reddy - Last Filed: 03/04/22 11:01> VTE Risk Level:: Surgical - very high <АНДРЕЙ Reddy - Last Filed: 03/04/22 11:01> VTE Device Contraindication: N/A - Device Ordered <АНДРЕЙ Reddy - Last Filed: 03/04/22 11:01> VTE Drug Contraindication: N/A - Med Ordered <АНДРЕЙ Reddy - Last Filed: 03/04/22 11:01>
--- NOTE | 2022-03-04 11:05 | P.PNOP_ITS ---
Subjective Subjective Date of Service: 03/04/22 Interval history: POD 4 s/p MEGHAN no overnight events O2 dropped to 82 on RA denies cp,sob,palpitations Physical Exam Vital Signs: Vital Signs: Last Vital Signs Temp 99.5 F 03/04/22 06:55 Pulse 87 03/04/22 06:55 Resp 18 03/04/22 06:55 BP 139/63 03/04/22 06:55 Pulse Ox 90 L 03/04/22 06:55 BMI result Body Mass Index 36.2 Const: General: cooperative, healthy appearing and no acute distress Resp: Effort & Inspection: normal respiratory effort and able to speak in complete sentences Cardio: Rate: regular rate Peripheral pulses: Peripheral pulses 2+ throughout GI: Palpation (GI): Soft to palpation Skin: General skin exam: no rashes or lesions noted Extrem: Other: incision clean dry and intact. [place] intact. No erythema or effusion. Calf supple nontender. Neurovascularly intact. Procedures Date of Service Date of Service: 03/04/22 Progress Note: A&P Assessment and plan (1) Status post total hip replacement, left: Status: Acute Plan awaiting home O2 eval and medical clearance for d/c home with vna Time Spent With Patient Time: Total time spent is greater than 50% in coordination of care (as documented) at patient's floor/unit and/or counseling patient: Quality Stroke Does the patient have a stroke diagnosis?: No VTE Prior VTE?: No VTE Risk Level:: Surgical - very high VTE Device Contraindication: N/A - Device Ordered VTE Drug Contraindication: N/A - Med Ordered
[2022-03-04 11:54] LABS: Glucose, Whole Blood 124 mg/dL (60-115)
[2022-03-04] MEDS: Furosemide 20 MG/2 ML VIAL IVPUSH (12:11)
--- NOTE | 2022-03-04 13:33 | MHC.CM.PN ---
CM RECEIVED CALL FROM PT'S DTR SHIVA, CM CONSULTED W/ORTHO AND HOSPITALIST, PT HAD FEVER LAST EVENING, HOME O2 EVAL CANCELLED AND PT RECEIVED DOSE OF LASIX, ANTIC PT WILL D/C TOMORROW W/HOME SERVICES. CM WILL CONT TO FOLLOW D/C NEEDS, [facility] AWARE PT WILL NOT D/C.
[2022-03-04] MEDS: oxyCODONE HCl Immed Release 5 MG TABLET 10 MG PO ×2 (13:51→20:36)
--- NOTE | 2022-03-04 15:38 | PC.NURSE ---
Patient sats at rest 92-93%. OOB to stand with PT and desated to 76% with minimal activity. Patient denied SOB, chest pain, dizziness. Returned to chair and sats returned to 92%. Cecelia CHIANG notified. Patient had been diuresed with lasix this AM. Urinating pale yellow urine. Lung sounds clear throughout.
[2022-03-04 16:31] LABS: Glucose, Whole Blood 169 mg/dL (60-115)
[2022-03-04] MEDS: polyethylene glycoL 3350 17 GM POWD.PACK PO ×2 (16:58→20:37)
[2022-03-04 20:25] LABS: Glucose, Whole Blood 165 mg/dL (60-115)
[2022-03-04] MEDS: Amitriptyline HCl 50 MG TABLET PO (20:29)
[2022-03-05 03:45] VITALS: BP 126/58; PULSE 85; RESP 20; TEMP 36.7; O2SAT 86
[2022-03-05 07:19] VITALS: BP 134/63; PULSE 80; RESP 18; TEMP 37.1; O2SAT 91
[2022-03-05 07:36] LABS: Glucose, Whole Blood 125 mg/dL (60-115)
[2022-03-05 08:13] VITALS: PULSE 79; PULSE 92; O2SAT 78; O2SAT 85
--- NOTE | 2022-03-05 08:21 | P.PNIM_ITS ---
Subjective Subjective Date of Service: 03/05/22 Interval History: Seen in f/u for drop in O2 O2 sat drops signficantly into 80s with minimal activity and yet he reports no symptoms Physical Exam Vital Signs: Vital Signs: Last Vital Signs Temp 98.7 F 03/05/22 07:19 Pulse 80 03/05/22 07:19 Resp 18 03/05/22 07:19 BP 134/63 03/05/22 07:19 Pulse Ox 91 L 03/05/22 07:19 BMI result Body Mass Index 36.2 Const: General: cooperative, healthy appearing, comfortable, no acute distress, alert and awake Eyes: Pupils: Equal, round and reactive pupils present Resp: Effort & Inspection: normal respiratory effort and able to speak in complete sentences Auscultation: clear to auscultation bilaterally Cardio: Rate: regular rate Heart sounds: S1 normal heart sound present and S2 normal heart sound present Peripheral pulses: Peripheral pulses 2+ throughout GI: Inspection: No distended Palpation (GI): Soft to palpation and nontender Skin: General skin exam: no rashes or lesions noted Lesions: no lesions Rashes: no rashes Neuro: Cranial nerves: Yes Equal, round and reactive pupils present Extrem: Other: incision clean dry and intact. [place] intact. No erythema or effusion. Calf supple nontender. Neurovascularly intact. General: Yes no pedal edema Objective Data Active Medications Acetaminophen (Acetaminophen 325 Mg Tablet) 650 mg PO Q6H PRN PRN Reason: Pain, Mild (Pain Scale 1-3) Last Admin: 03/03/22 16:10 Dose: 650 mg Documented by: SAVI Albuterol/Ipratropium (Albuterol/Iprat 2.5/0.5mg 3 Ml Ampul.Neb) 3 ml INHALE Q6H PRN PRN Reason: Shortness of Breath Amitriptyline HCl (Amitriptyline Hcl 50 Mg Tablet) 50 mg PO BEDTIME [facility] Last Admin: 03/04/22 20:29 Dose: 50 mg Documented by: FANTASMA Apixaban (Apixaban 2.5 Mg Tablet) 2.5 mg PO BID [facility] Last Admin: 03/04/22 20:30 Dose: 2.5 mg Documented by: FANTASMA Carvedilol (Carvedilol 25 Mg Tablet) 25 mg PO BID [facility]; Protocol Last Admin: 03/04/22 20:30 Dose: 25 mg Documented by: FANTASMA Docusate Sodium (Docusate Sodium 100 Mg Capsule) 100 mg PO BID [facility] Last Admin: 03/04/22 20:29 Dose: 100 mg Documented by: FANTASMA Fluticasone Propionate (Fluticasone Propionate Nasal 16 Gm [place]) 2 spray NOSTRIL-B DAILY PRN PRN Reason: Dry Nasal Passages Furosemide (Furosemide 20 Mg/2 Ml Vial) 20 mg IVPUSH DAILY [facility]; Protocol Hydromorphone HCl (Hydromorphone Hcl 1 Mg/Ml Syringe) 0.25 mg IVPUSH Q4H PRN; Protocol PRN Reason: Pain, Severe (Pain Scale 7-10) Insulin Human Lispro (Insulin Lispro 100 Unit/Ml 3 Ml Vial) 0 unit SUBCUT QIDACHS [facility]; Protocol Last Admin: 03/05/22 07:50 Dose: Not Given Documented by: WILLIS Non-Admin Reason: No Insulin Coverage Memantine (Memantine Hcl 10 Mg Tablet) 10 mg PO BID [facility] Last Admin: 03/04/22 20:29 Dose: 10 mg Documented by: FANTASMA Omeprazole (Omeprazole 20 Mg Capsule.Dr) 20 mg PO DAILY [facility] Last Admin: 03/04/22 09:01 Dose: 20 mg Documented by: JAYCE Ondansetron HCl (Ondansetron Hcl 4 Mg/2 Ml Vial) 4 mg IVPUSH Q8H PRN PRN Reason: Nausea and Vomiting Oxycodone HCl (Oxycodone Hcl Immed Release 5 Mg Tablet) 10 mg PO Q4H PRN PRN Reason: Pain, Moderate (Pain Scale 4-6 Last Admin: 03/04/22 20:36 Dose: 10 mg Documented by: FANTASMA Polyethylene Glycol (Polyethylene Glycol 3350 17 Gm Powd.Pack) 17 gm PO BID [facility] Last Admin: 03/04/22 20:37 Dose: 17 gm Documented by: FANTASMA Sodium Chloride (0.9 % Sodium Chloride Flush 3 Ml Syringe) 3 ml IVFLUSH QSHIFT [facility] Last Admin: 03/04/22 20:40 Dose: 3 ml Documented by: FANTASMA Tamsulosin HCl (Tamsulosin Hcl 0.4 Mg Capsule) 0.4 mg PO DAILY [facility] Last Admin: 03/04/22 09:01 Dose: 0.4 mg Documented by: JAYCE Labs CBC & Chem 7: 03/04/22 05:27 03/04/22 05:27 Labs: Laboratory Results - last 24 hr 03/03/22 03/04/22 03/04/22 17:45 11:31 15:37 POC Glucose 124 H 169 H Respiratory Panel [place] See Note Adenovirus (Rapid PCR) Not Detected B.pert (TEM-PCR) Not Detected B.parapertussis DNA PCR Not Detected C. pneumoniae DNA (PCR) Not Detected Coronavirus OC43 (PCR) Not Detected Coronavirus HKU1 (PCR) Not Detected Coronavirus 229E (PCR) Not Detected Coronavirus NL63 (PCR) Not Detected Human Metapneumovir PCR Not Detected Influenza A (RT-PCR) Not Detected Influenza B (RT-PCR) Not Detected M. pneumoniae (PCR) Not Detected Parainfluenza 1 (PCR) Not Detected Parainfluenza 2 (PCR) Not Detected Parainfluenza 3 (PCR) Not Detected Parainfluenza 4 (PCR) Not Detected RSV (PCR) Not Detected Entero/Rhino (PCR) Not Detected SARS-CoV-2 RNA (RT-PCR) Not Detected 03/04/22 03/05/22 19:51 07:23 POC Glucose 165 H 125 H Respiratory Panel [place] Adenovirus (Rapid PCR) B.pert (TEM-PCR) B.parapertussis DNA PCR C. pneumoniae DNA (PCR) Coronavirus OC43 (PCR) Coronavirus HKU1 (PCR) Coronavirus 229E (PCR) Coronavirus NL63 (PCR) Human Metapneumovir PCR Influenza A (RT-PCR) Influenza B (RT-PCR) M. pneumoniae (PCR) Parainfluenza 1 (PCR) Parainfluenza 2 (PCR) Parainfluenza 3 (PCR) Parainfluenza 4 (PCR) RSV (PCR) Entero/Rhino (PCR) SARS-CoV-2 RNA (RT-PCR) Microbiology Microbiology Results: Microbiology 03/03/22 16:26 Blood Culture - Preliminary Blood - Venous No growth after 24 hours. 03/03/22 16:26 Blood Culture - Preliminary Blood - Venous No growth after 24 hours. Assessment and Plan (1) Hypoxia: Status: Acute Plan 76 yo M with a PMH as outlined below who is admitted under the orthopedic services post L [facility]. Medical consult requested for mgmt of medical issues. Isolated Fever 2 days ago, resolved likely secondary to atelectasis in the post op setting CXR, UA negative, RPP negative FANTA on CKD 3 creatinine down to 1.72, close to baseline. Recommend to hold losartan on discharge. Should follow up with PCP and repeat BMP within the next week. Avoid NSAIDs. Acute respiratory failure with hypoxia o2 sat drops to low 80s, yet assymptomatic this am 9`% on room air but dropped 85 when respiratory attempted to work with him CXR negative. He needs O2 at home Acute blood loss anemia likely secondary to loss from surgery. H/H stable. History of PE / Factor V Leiden def. continue on Eliquis DM Resume home regimen on discharge. HTN continue coreg, can resume norvasc. Mild cognitive impairment continue memantine Cardiomyopathy lasix on hold. Should monitor fluid status closely while lasix is on hold. gerd continue prilosec BPH continue tamsulosin I think he needs to be reassessed by PT to go to rehab rather than home Full Code DVT pptx -- Cheryl Attending: Dr. Valdez Quality Stroke Does the patient have a stroke diagnosis?: No VTE Prior VTE?: No VTE Risk Level:: Surgical - very high VTE Device Contraindication: N/A - Device Ordered VTE Drug Contraindication: N/A - Med Ordered
--- NOTE | 2022-03-05 09:58 | MHC.CM.PN ---
EMR REVIEWED, PER ORTHO HOSPITALILIST WOULD LIKE PT RE-EVAL'D FOR STR HIS OC CONT'S TO DROP WITH ACTIVITY, CM CONTACTED PT'S DTR SHIVA AT [employer] [facility] [employer] AND SHE IS AWARE PT WILL NOT D/C UNITL AFTER RE-EVALUATED BY PT TOMORROW 03/06 THERE IS NO IN HOUSE OR ONCALL PT ON SUNDAYS, SHIVA REPORTS SHE ANDPT'S MOTHER WILL BE HERE AROUND 2PM AND WOULD LIKE TO SPEAK W/HOSPITALIST ONCE THEY ARRIVE, CM WILL LET HOSPITALIST KNOW WHEN FAMILY ARRIVES. CM WILL CONT TO FOLLOW D/C NEEDS.
[2022-03-05] MEDS: Memantine HCl 10 MG TABLET PO ×2 (10:15→21:28)
[2022-03-05] MEDS: Docusate Sodium 100 MG CAPSULE PO ×2 (10:16→21:28)
[2022-03-05] MEDS: Furosemide 20 MG/2 ML VIAL IVPUSH (10:16)
[2022-03-05] MEDS: Tamsulosin HCL 0.4 MG CAPSULE PO (10:16)
[2022-03-05] MEDS: Apixaban 2.5 MG TABLET PO ×2 (10:16→21:28)
[2022-03-05] MEDS: Omeprazole 20 MG CAPSULE.DR PO (10:16)
[2022-03-05] MEDS: carvediloL 25 MG TABLET PO ×2 (10:16→21:28)
[2022-03-05] MEDS: polyethylene glycoL 3350 17 GM POWD.PACK PO (10:17)
[2022-03-05] MEDS: 0.9 % Sodium Chloride Flush 3 ML SYRINGE IVFLUSH ×2 (10:17→17:43)
[2022-03-05 11:28] VITALS: BP 183/93; PULSE 93; RESP 18; TEMP 37.2; O2SAT 94
[2022-03-05 11:45] LABS: Glucose, Whole Blood 151 mg/dL (60-115)
[2022-03-05] MEDS: oxyCODONE HCl Immed Release 5 MG TABLET 10 MG PO (13:25)
[2022-03-05 15:29] VITALS: BP 130/65; PULSE 91; RESP 18; TEMP 37.4; O2SAT 92
[2022-03-05 16:34] LABS: Glucose, Whole Blood 157 mg/dL (60-115)
--- NOTE | 2022-03-05 18:02 | P.PNOP_ITS ---
Subjective Subjective Date of Service: 03/05/22 Interval history: pod 5 S/P lt arnaldo NO OVERNIGHT EVENTS O2 Continues to drop with activity Physical Exam Vital Signs: Vital Signs: Last Vital Signs Temp 99.3 F 03/05/22 15:29 Pulse 91 03/05/22 15:29 Resp 18 03/05/22 15:29 BP 130/65 03/05/22 15:29 Pulse Ox 92 03/05/22 15:29 BMI result Body Mass Index 36.2 Const: General: cooperative, healthy appearing and no acute distress Resp: Effort & Inspection: normal respiratory effort and able to speak in complete sentences Cardio: Rate: regular rate Peripheral pulses: Peripheral pulses 2+ throughout GI: Palpation (GI): Soft to palpation Skin: General skin exam: no rashes or lesions noted Extrem: Other: incision clean dry and intact. [place] intact. No erythema or effusion. Calf supple nontender. Neurovascularly intact. Procedures Date of Service Date of Service: 03/05/22 Progress Note: A&P Assessment and plan (1) Status post total hip replacement, left: Status: Acute Assessment and Plan: PT/OT-re-eval given hypoxia with activity pending discharge Time Spent With Patient Time: Total time spent is greater than 50% in coordination of care (as documented) at patient's floor/unit and/or counseling patient: Quality Stroke Does the patient have a stroke diagnosis?: No VTE Prior VTE?: No VTE Risk Level:: Surgical - very high VTE Device Contraindication: N/A - Device Ordered VTE Drug Contraindication: N/A - Med Ordered
[2022-03-05 19:27] VITALS: BP 135/63; PULSE 90; RESP 17; TEMP 37.2; O2SAT 92
[2022-03-05 19:59] LABS: Glucose, Whole Blood 157 mg/dL (60-115)
[2022-03-05] MEDS: Acetaminophen 325 MG TABLET 650 MG PO (21:28)
[2022-03-05] MEDS: Amitriptyline HCl 50 MG TABLET PO (21:28)
[2022-03-06] VITALS (7 sets, daily range): BP systolic 105–145; BP diastolic 55–70; PULSE 74–86; RESP 18; TEMP 36.6–37.6; O2SAT 84–100
[2022-03-06] MEDS: 0.9 % Sodium Chloride Flush 3 ML SYRINGE IVFLUSH ×3 (00:35→16:46)
[2022-03-06 07:17] LABS: Glucose, Whole Blood 135 mg/dL (60-115)
[2022-03-06] MEDS: Omeprazole 20 MG CAPSULE.DR PO (08:34)
[2022-03-06] MEDS: Apixaban 2.5 MG TABLET PO (08:34)
[2022-03-06] MEDS: Acetaminophen 325 MG TABLET 650 MG PO ×2 (08:34→16:54)
[2022-03-06] MEDS: Furosemide 20 MG/2 ML VIAL IVPUSH (08:34)
[2022-03-06] MEDS: Tamsulosin HCL 0.4 MG CAPSULE PO (08:34)
[2022-03-06] MEDS: carvediloL 25 MG TABLET PO (08:34)
[2022-03-06] MEDS: Memantine HCl 10 MG TABLET PO (08:34)
[2022-03-06 11:07] LABS: Glucose, Whole Blood 209 mg/dL (60-115)
[2022-03-06] MEDS: Insulin Lispro 100 UNIT/ML 3 ML VIAL SUBCUT (11:59)
--- NOTE | 2022-03-06 12:15 | P.PNIM_ITS ---
Subjective Subjective Date of Service: 03/06/22 Interval History: Doing excellent. Ambulating the hallway with PT with walker without issue Review of Systems Denies chest pain Denies shortness of breath Denies nausea vomiting diarrhea Denies fever chills Physical Exam Vital Signs: Vital Signs: Last Vital Signs Temp 97.8 F 03/06/22 11:18 Pulse 80 03/06/22 11:18 Resp 18 03/06/22 11:18 BP 133/60 03/06/22 11:18 Pulse Ox 98 03/06/22 11:18 BMI result Body Mass Index 36.2 Const: Other: Awake alert oriented x3 no acute distress Resp: Other: Clear to auscultation bilaterally no rales rhonchi or wheezes Cardio: Other: No S4 positive S1-S2 no S3 murmurs rubs or gallops GI: Other: Soft nontender nondistended normoactive bowel sounds Extrem: Other: No edema bilaterally Objective Data Active Medications Acetaminophen (Acetaminophen 325 Mg Tablet) 650 mg PO Q6H PRN PRN Reason: Pain, Mild (Pain Scale 1-3) Last Admin: 03/06/22 08:34 Dose: 650 mg Documented by: WILLIS Albuterol/Ipratropium (Albuterol/Iprat 2.5/0.5mg 3 Ml Ampul.Neb) 3 ml INHALE Q6H PRN PRN Reason: Shortness of Breath Amitriptyline HCl (Amitriptyline Hcl 50 Mg Tablet) 50 mg PO BEDTIME [facility] Last Admin: 03/05/22 21:28 Dose: 50 mg Documented by: SERAFIN Apixaban (Apixaban 2.5 Mg Tablet) 2.5 mg PO BID [facility] Last Admin: 03/06/22 08:34 Dose: 2.5 mg Documented by: WILLIS Carvedilol (Carvedilol 25 Mg Tablet) 25 mg PO BID [facility]; Protocol Last Admin: 03/06/22 08:34 Dose: 25 mg Documented by: WILLIS Docusate Sodium (Docusate Sodium 100 Mg Capsule) 100 mg PO BID [facility] Last Admin: 03/06/22 08:35 Dose: Not Given Documented by: WILLIS Non-Admin Reason: Patient Refused Fluticasone Propionate (Fluticasone Propionate Nasal 16 Gm [place]) 2 spray NOSTRIL-B DAILY PRN PRN Reason: Dry Nasal Passages Furosemide (Furosemide 20 Mg/2 Ml Vial) 20 mg IVPUSH DAILY [facility]; Protocol Last Admin: 03/06/22 08:34 Dose: 20 mg Documented by: WILLIS Insulin Human Lispro (Insulin Lispro 100 Unit/Ml 3 Ml Vial) 0 unit SUBCUT QIDACHS [facility]; Protocol Last Admin: 03/06/22 11:59 Dose: 2 unit Documented by: WILLIS Memantine (Memantine Hcl 10 Mg Tablet) 10 mg PO BID [facility] Last Admin: 03/06/22 08:34 Dose: 10 mg Documented by: WILLIS Omeprazole (Omeprazole 20 Mg Capsule.) 20 mg PO DAILY [facility] Last Admin: 03/06/22 08:34 Dose: 20 mg Documented by: WILLIS Ondansetron HCl (Ondansetron Hcl 4 Mg/2 Ml Vial) 4 mg IVPUSH Q8H PRN PRN Reason: Nausea and Vomiting Polyethylene Glycol (Polyethylene Glycol 3350 17 Gm Powd.Pack) 17 gm PO BID [facility] Last Admin: 03/06/22 08:35 Dose: Not Given Documented by: WILLIS Non-Admin Reason: Patient Refused Sodium Chloride (0.9 % Sodium Chloride Flush 3 Ml Syringe) 3 ml IVFLUSH QSHIFT [facility] Last Admin: 03/06/22 08:36 Dose: 3 ml Documented by: WILLIS Tamsulosin HCl (Tamsulosin Hcl 0.4 Mg Capsule) 0.4 mg PO DAILY [facility] Last Admin: 03/06/22 08:34 Dose: 0.4 mg Documented by: WILLIS Labs CBC & Chem 7: 03/04/22 05:27 03/04/22 05:27 Labs: Laboratory Results - last 24 hr 03/05/22 03/05/22 03/06/22 15:31 19:51 07:00 POC Glucose 157 H 157 H 135 H 03/06/22 10:53 POC Glucose 209 H Microbiology Microbiology Results: Microbiology 03/03/22 16:26 Blood Culture - Preliminary Blood - Venous No growth after 48 hours. 03/03/22 16:26 Blood Culture - Preliminary Blood - Venous No growth after 48 hours. Assessment and Plan (1) Hypoxia: Status: Acute Plan 76 yo M with a PMH as outlined below who is admitted under the orthopedic services post L [facility]. Medical consult requested for mgmt of medical issuues. 1.Hypoxia(most likely postoperative atelectasis) Patient qualified for home O2 with respiratory therapy. Arrangements will be made. This will be likely transient. Perfusion scan negative for PE. No acute medical issues may be discharged at the discretion of Orthopedics Full Code DVT pptx -- [facility] Quality Stroke Does the patient have a stroke diagnosis?: No VTE Prior VTE?: No VTE Risk Level:: Surgical - very high VTE Device Contraindication: N/A - Device Ordered VTE Drug Contraindication: N/A - Med Ordered
--- NOTE | 2022-03-06 14:43 | P.DS_ITS ---
DS: Providers Provider Date of Service: 03/06/22 Date of admission: 02/28/22 12:16 Primary care physician: Toy Velásquez MD Consults: 02/28/22 17:42 Consult to Hospitalist Routine Consulting Provider: Hospitalist Reason For Exam: FACTOR 5 LEIDEN, DM DS: Diagnosis Discharge Diagnosis (1) Status post total hip replacement, left: Status: Acute (2) Hypoxia: Status: Acute (3) Acute kidney injury superimposed on CKD: Status: Resolved DS: Summary Hospital Course Hospital Course: The patient underwent a successful left total hip arthroplasty, they were transferred to PACU and then to the floor to recover. During their stay, their vitals were stable, afebrile at 97.8 on discharge. Labs were unremarkable, H/H 8.0/25.5. POD 1 they were started on Lovenox for DVT ppx, they also received Physical Therapy and Occupational therpay services twice a day. POD 3 he did have an episode of fever 101.5, CXR was negative for consolidation. POD 4 his Oxygen saturation began dropping into the 80s overnight and with exertion. VQ scan negative. Home O2 eval performed, which was conclusive for the patient require home O2 on discharge. Prior to discharge, their dressing was changed, incision clean dry and intact, new Aquacel dressing applied and the plan was to be discharged home with VNA services. Time Spent with Patient Time attestation: Total time spent providing and/or coordinating discharge services: Discharge coordination time: Less than 30 minutes Quality: Safe Use of Opioids Does Pt have an Active Cancer Diagnosis on the Problem List?: No Quality: Stroke Does the patient have a stroke diagnosis?: No Physical Exam Vital Signs: Vital Signs: Last Vital Signs Temp 97.8 F 03/06/22 11:18 Pulse 80 03/06/22 11:18 Resp 18 03/06/22 11:18 BP 133/60 03/06/22 11:18 Pulse Ox 98 03/06/22 11:18 BMI result Body Mass Index 36.2 Extrem: Other: incision clean dry and intact. Pillow intact. No erythema or effusion. Calf supple nontender. Neurovascularly intact. DS: Data Data Completed and Pending Completed studies during hospitalization [Text1]: Pending at discharge 02/28/22 16:14 Surgical [PTH] Routine Labs on day of discharge: Laboratory Results - last 24 hr 03/05/22 03/05/22 03/06/22 15:31 19:51 07:00 POC Glucose 157 H 157 H 135 H 03/06/22 10:53 POC Glucose 209 H Preliminary micro results at discharge 03/03/22 16:26 Blood Culture - Preliminary Blood - Venous No growth after 48 hours. 03/03/22 16:26 Blood Culture - Preliminary Blood - Venous No growth after 48 hours. Discharge Plan Discharge Patient Disposition: Home Health Service Discharge Diagnosis: s/p LTHA Referrals: [facility] [Outside] - 1 Day (discharged home with today , [facility] home physical therpay for post l-arnaldo and new nursing visits for new orders for home oxygen transportation family pcp dr velásquez follow up post hospitla discharge orthopedic surgical follow up imm 03/01/2022) Toy Velásquez MD [Primary Care Provider] - 1 Week (Make appt with PCP in 1 week for Repeat CBC and BMP labs ) Lukasz Cuenca PA-C [Physician Blanching Machine Operator] - 2 Weeks (03/16/22 1:30 [facility] Lukasz Cuenca PA-C) Discharge Medications: New docusate sodium 100 mg Capsule 100 mg PO BID 30 Days Qty: 60 0RF oxycodone 10 mg tablet 10 mg PO Q4H PRN (Reason: Pain, Moderate (Pain Scale 4-6) 7 Days Qty: 42 0RF acetaminophen 325 mg Tablet 650 mg PO Q6H PRN (Reason: Pain, Mild (Pain Scale 1-3)) 30 Days Qty: 240 0RF Continued amlodipine [Norvasc] 5 mg Tablet 7.5 mg PO DAILY 0RF cyanocobalamin (vitamin B-12) 1,000 mcg/mL Syringe 1,000 mcg QMONTH 0RF carvedilol 25 mg tablet 1 tab BID 0RF pravastatin 40 mg tablet 1 tab DAILY 0RF amitriptyline 25 mg tablet 50 mg PO BEDTIME 0RF apixaban 2.5 mg tablet 2.5 mg PO BID 0RF fluticasone propionate 50 mcg/actuation spray,suspension 2 spray intranasal DAILY PRN (Reason: Dry Nasal Passages) 0RF furosemide 20 mg tablet 20 mg PO DAILY 0RF Hold Instructions: Resume on 03/10/22. HOLD UNTIL CLEARED BY PCP glipizide 5 mg tablet 5 mg PO BID 0RF memantine 10 mg tablet 10 mg PO BID 0RF omeprazole 20 mg capsule,delayed release(DR/EC) 20 mg PO DAILY 0RF polyethylene glycol 3350 17 gram/dose powder 1 g PO BID PRN (Reason: Constipation) 0RF tamsulosin 0.4 mg capsule 0.4 mg PO DAILY 0RF cholecalciferol (vitamin D3) 50 mcg (2,000 unit) tablet 50 mcg PO DAILY 0RF (DME) walker Misc See Rx Instructions .MEDSUPPLY Qty: 1 0RF Rx Instructions: Folding Front wheeled walker Held losartan 50 mg tablet 50 mg PO DAILY 0RF Hold Instructions: Resume on 03/10/22. HOLD UNTIL CLEARED BY PCP Discharge Orders: Discharge Order (Routine); Ordered 03/06/22 Ordered By: Lukasz Cuenca Diet: regular diet Activity on Discharge: Use cane or walker Stand Alone Forms: Patient Portal Discharge page Other Ambulatory Orders: Basic Metabolic Panel (Routine) Timeframe: 20220308 Facility: [facility] - Location: Laboratory Ordered By: Cecelia Subramanian Complete Blood Count no Diff (Routine) Timeframe: 20220308 Facility: [facility] - Location: Laboratory Ordered By: Cecelia Subramanian Care Plan Goals: Restore function of joint Health Concerns: None Plan of Treatment: Physical Therapy Pain management DVT prophylaxis Assessment: HOLD LOSARTAN REPEAT CBC AND BMP as ordered * Physical Therapy for Total hip arthroplasty: wbat, posterior precautions, gait training, ROM, strength * Limit stair climbing * No showering, no tub bath-keep dressing clean, dry and intact * No driving x6 weeks * Resume Eliquis * Follow up with [facility] Orth[facility]ics in 2 weeks: * --you will also have your first out patient PT bao on the day of your post op appt-so please plan on being in the office that day for an extended period of time. Discharge Date/Time: 03/06/22 18:35
--- NOTE | 2022-03-06 15:44 | MHC.CM.PN ---
discharge plan home with referral for the [facility] for new nursing nneds arnol sign an d symptom management for new home oxygen needs, nursing to and resp therapist to review instructiosn with patients son when he comeas to get patient , and also the hvna for home pt to start tomorrow . respiratory therapist to arrange with [facility] for home oxygen delivery and patient will have portable tank fofrom here for transportation home medicare immm updated
[2022-03-06 16:07] LABS: Glucose, Whole Blood 114 mg/dL (60-115)
--- NOTE | 2022-03-06 16:10 | W.MHC.F2F ---
Service Date Service Date: 03/06/22 Encounter Date of encounter: 03/06/22 Reasons for Services Signs and symptoms assessed: Home o2 Reason for senior care: teach disease management and other (Home O2) Reason for physical therapy: home safety and mobility, therapeutic exercises, restore joint function, gait/transfer training, assess need for DME and ADL training Homebound: Leaving the home is medically contraindicated at this time without the asist of a device and/or another person due th the listed conditions above and below. Reason homebound: unsteady gait / fall risk, leg weakness, shortness of breath with minimal effort, pain with ambulation, pain with transfers, poor balance / fall risk and unable to drive Homebound supporting statement: Pt. is considered homebound due to recent surgery. Unable to drive, poor balance, poor gait mechanics. Certification: Based on the above findings, I certify that this patient is confined to the home and needs intermittent senior care care, physical therapy and/or speech therapy, or continues to need occupational therapy. The patient is under my care, and I have initiated the establishment of the plan of care. The patient will be followed by a physician who will periodically review the plan of care.
== END 2022-03-06 18:35 | disposition home health service (06) | DRG 469 ==
LOC: HO.SSSA 12:58 → HO.S3 17:07
PROVIDERS: Anesthesiology; Physician Assistant; Physician Assistant Medical; Admitting Provider Orthopaedic Surgery; PCP Internal Medicine; Visit Provider Orthopaedic Surgery
PROC: 0SRB0JA Replacement of Left Hip Joint with Synthetic Substitute, Uncemented, Open Approach (ICD-10-PCS; CPT 27130; principal; 2022-02-28 13:30)
DX: M16.12 Unilateral primary osteoarthritis, left hip (principal); J96.01 Acute respiratory failure with hypoxia; D68.51 Activated protein C resistance; D62 Acute posthemorrhagic anemia; N17.9 Acute kidney failure, unspecified; I42.9 Cardiomyopathy, unspecified; J95.89 Other postprocedural complications and disorders of respiratory system, not elsewhere classified; J98.11 Atelectasis; G31.84 Mild cognitive impairment of uncertain or unknown etiology; I12.9 Hypertensive chronic kidney disease with stage 1 through stage 4 chronic kidney disease, or unspecified chronic kidney disease; N18.30 Chronic kidney disease, stage 3 unspecified; E11.22 Type 2 diabetes mellitus with diabetic chronic kidney disease; Z20.822 Contact with and (suspected) exposure to COVID-19; K21.9 Gastro-esophageal reflux disease without esophagitis; N40.0 Benign prostatic hyperplasia without lower urinary tract symptoms; Z86.711 Personal history of pulmonary embolism; Z95.828 Presence of other vascular implants and grafts; Z98.42 Cataract extraction status, left eye; Z98.41 Cataract extraction status, right eye; Z88.8 Allergy status to other drugs, medicaments and biological substances; Z79.01 Long term (current) use of anticoagulants; Z79.51 Long term (current) use of inhaled steroids; Z79.84 Long term (current) use of oral hypoglycemic drugs; Z79.899 Other long term (current) drug therapy; Z13.83 Encounter for screening for respiratory disorder NEC
CPT/HCPCS: 27130; 36415; 71045; 72170; 78580; 80048; 81001; 82947; 83605; 85014; 85018; 85025; 85027; 85610; 86850; 86900; 86901; 87040; 87633; 87635; 87640; 87641; 88304; 88311; 97110; 97116; 97162; 97166; 97530; 97535; A9540; C1776; J0131; J0690; J1100; J1170; J1650; J1940; J2370; J2405; J3010

== ENCOUNTER 2022-03-13 13:20 | Outpatient (REF) | payer MEDICARE, MEDICAID, SELFPAY ==
[2022-03-13 13:24] LABS: MANUAL DIFF FLAG NO
[2022-03-13 13:37] LABS: Basophils Absolute Auto 0.1 X10*3/uL (0.0-0.2); Basophils Percent Auto 0.7 % (0-2); Eosinophils Absolute Auto 0.4 X10*3/uL (0.0-0.4); Eosinophils Percent Auto 3.6 % (0-4); Hematocrit 29.7 % (42.0-52.0); Hemoglobin 9.3 g/dl (14.0-18.0); Imm Gran Abs Auto 0.07 X10*3/uL (0.00-0.03); Imm Gran Pct Auto 0.6 % (0.0-0.4); Lymphocytes Absolute Auto 2.4 X10*3/uL (1.2-4.9); Lymphocytes Percent Auto 22.3 % (20-40); Mean Corpuscular HGB Conc 31.3 g/dl (31.0-36.0); Mean Corpuscular Hemoglobin 28.4 pg (27.0-33.0); Mean Corpuscular Volume 90.8 fL (80.0-98.0); Mean Platelet Volume 9.2 fL (9.4-12.4); Monocytes Absolute Auto 0.8 X10*3/uL (0.1-1.2); Monocytes Percent Auto 7.4 % (2-11); Neutrophils Percent Auto 65.4 % (45-73); Platelet Count 410 X10*3/uL (160-400); Red Blood Count 3.27 X10*6/uL (4.60-5.80); White Blood Count 10.8 X10*3/uL (4.8-10.8)
[2022-03-13 14:40] LABS: Anion Gap 13 (12-20); Blood Urea Nitrogen 27 mg/dL (9-16); Calcium 8.8 mg/dL (8.4-10.2); Carbon Dioxide 28 mmol/L (22-29); Chloride 103 mmol/L (96-108); Estimated Glomerular Filt Rate 39; Glucose Random 141 mg/dL (60-115); Potassium 4.6 mmol/L (3.3-5.1); Sodium 139 mmol/L (135-145)
== END 2022-03-13 13:21 | disposition home or self-care (01) ==
LOC: HO.HVNA 13:20
PROVIDERS: Visit Provider Orthopaedic Surgery
DX: E11.22 Type 2 diabetes mellitus with diabetic chronic kidney disease (principal); I12.9 Hypertensive chronic kidney disease with stage 1 through stage 4 chronic kidney disease, or unspecified chronic kidney disease; Z47.1 Aftercare following joint replacement surgery
CPT/HCPCS: 36415; 80048; 85025

== ENCOUNTER 2022-03-16 07:35 | Outpatient (RCR) | payer MEDICARE, MEDICAID, SELFPAY | END 2022-06-02 09:02 | disposition home or self-care (01) | LOC: HO.PT 07:35 | PROVIDERS: Visit Provider Physician Assistant | DX: Z96.642 Presence of left artificial hip joint (principal) ==

== ENCOUNTER 2022-03-16 13:23 | Outpatient (REF) | payer MEDICARE, MEDICAID, SELFPAY ==
--- NOTE | ~2022-03-16 | US_ITS ---
EXAMINATION: US VENOUS ULTRASOUND WITH DOPPLER LOWER EXTREMITY, LEFT CLINICAL INFORMATION: Edema left lower extremity. Assess for DVT. Patient on Eliquis. COMPARISON: Radionuclide perfusion scan 03/06/2022, pelvic radiograph 02/28/2022. TECHNIQUE: Ultrasound of the deep veins is performed from the hip to the calf with compression sonography and color and pulse Doppler assessment. Spectral analysis with color-flow imaging is performed. FINDINGS: The left femoral vein is noncompressible from the knee to the hip. The profunda femoris is also noncompressible. The popliteal vein is partially compressible. There is scattered intraluminal color flow in the popliteal vein and femoral vein suggesting partially occluding thrombus. The common femoral vein shows mural echogenicity and only partial compressibility consistent with partially occluding thrombus. Due to the soft tissue swelling, the calf veins are not well visualized. No popliteal fossa cyst demonstrated. Results called and discussed with on-call physician Dr. Alma Carson at 1700 hours. Preliminary results were also called by olive knocker to office (FARSHAD Gonzalez) at 1612 hours. US/US venous duplex LE LT IMPRESSION: -Positive for deep venous thrombosis left leg from the knee to the hip. -Calf veins not visible.
== END 2022-03-16 13:24 | disposition home or self-care (01) ==
LOC: HO.US 13:23
PROVIDERS: PCP Internal Medicine; Visit Provider Physician Assistant
DX: R60.0 Localized edema (principal); I82.4Y2 Acute embolism and thrombosis of unspecified deep veins of left proximal lower extremity; Z47.1 Aftercare following joint replacement surgery; Z96.642 Presence of left artificial hip joint; Z79.01 Long term (current) use of anticoagulants
CPT/HCPCS: 93971; 99212

== ENCOUNTER 2022-03-17 16:32 | Emergency (ER) | payer MEDICARE, MEDICAID, SELFPAY ==
[2022-03-17 16:48] VITALS: BP 127/55; PULSE 83; RESP 18; TEMP 36.2; O2SAT 93; BMI 38.4
[2022-03-17 17:34] LABS: MANUAL DIFF FLAG NO
[2022-03-17 17:40] LABS: Basophils Absolute Auto 0.1 X10*3/uL (0.0-0.2); Basophils Percent Auto 0.7 % (0-2); Eosinophils Absolute Auto 0.4 X10*3/uL (0.0-0.4); Eosinophils Percent Auto 4.1 % (0-4); Hematocrit 29.4 % (42.0-52.0); Hemoglobin 9.2 g/dl (14.0-18.0); Imm Gran Abs Auto 0.04 X10*3/uL (0.00-0.03); Imm Gran Pct Auto 0.5 % (0.0-0.4); Lymphocytes Absolute Auto 2.4 X10*3/uL (1.2-4.9); Lymphocytes Percent Auto 27.6 % (20-40); Mean Corpuscular HGB Conc 31.3 g/dl (31.0-36.0); Mean Corpuscular Hemoglobin 28.6 pg (27.0-33.0); Mean Corpuscular Volume 91.3 fL (80.0-98.0); Mean Platelet Volume 8.9 fL (9.4-12.4); Monocytes Absolute Auto 0.9 X10*3/uL (0.1-1.2); Monocytes Percent Auto 10.7 % (2-11); Neutrophils Percent Auto 56.4 % (45-73); Platelet Count 390 X10*3/uL (160-400); Red Blood Count 3.22 X10*6/uL (4.60-5.80); Red Cell Distribution Width 14.1 % (11.0-16.0); White Blood Count 8.8 X10*3/uL (4.8-10.8)
[2022-03-17 17:48] LABS: Anion Gap 13 (12-20); Blood Urea Nitrogen 32 mg/dL (9-16); Calcium 8.9 mg/dL (8.4-10.2); Carbon Dioxide 29 mmol/L (22-29); Chloride 103 mmol/L (96-108); Creatinine Clr Calc Pharmacy 36.9; Estimated Glomerular Filt Rate 34; Glucose Random 129 mg/dL (60-115); INTERNATIONAL NORM RATIO 1.7 (0.9-1.1); Potassium 4.8 mmol/L (3.3-5.1); Prothrombin Time 19.2 SEC (9.9-13.0); Sodium 140 mmol/L (135-145)
--- NOTE | 2022-03-17 20:23 | ED.GENADULT ---
HPI - General Adult General Chief complaint: General Medical Stated complaint: Overdose on Blood thinner medication. Time Seen by Provider: 03/17/22 19:38 Source: patient Mode of arrival: ambulatory Limitations: no limitations History of Present Illness HPI narrative: Patient comes to the emergency room complaining of an accidental overdose of Eliquis. Patient had a hip replacement on February 28. Patient was started on 2.5 mg Eliquis b.i.d.. A few days ago, patient developed leg swelling and pain. Patient had an ultrasound done and was positive for a DVT. Patient was instructed to increase Eliquis to 10 mg b.i.d. starting today. Morning, patient misunderstood the directions, instead, he took 10 tablets of 2.5 mg (25 mg). Patient has no symptoms, denies hematuria, no bloody/ black stool Related Data Home Medications Medication Instructions Recorded Confirmed amitriptyline 25 mg tablet 50 mg PO BEDTIME 08/25/20 02/21/22 apixaban 2.5 mg tablet 2.5 mg PO BID 08/25/20 02/21/22 cholecalciferol (vitamin D3) 50 50 mcg PO DAILY 08/25/20 02/21/22 mcg (2,000 unit) tablet fluticasone propionate 50 2 spray INTRANASAL DAILY PRN 08/25/20 02/21/22 mcg/actuation nasal spray,suspension furosemide 20 mg tablet 20 mg PO DAILY 08/25/20 02/21/22 glipizide 5 mg tablet 5 mg PO BID 08/25/20 02/21/22 losartan 50 mg tablet 50 mg PO DAILY 08/25/20 02/21/22 memantine 10 mg tablet 10 mg PO BID 08/25/20 02/21/22 omeprazole 20 mg capsule,delayed 20 mg PO DAILY 08/25/20 02/21/22 release polyethylene glycol 3350 17 1 g PO BID PRN 08/25/20 02/21/22 gram/dose oral powder tamsulosin 0.4 mg capsule 0.4 mg PO DAILY 08/25/20 02/21/22 amlodipine 5 mg tablet (Norvasc) 7.5 mg PO DAILY 02/21/22 02/21/22 cyanocobalamin (vitamin B-12) 1,000 mcg QMONTH 02/21/22 02/21/22 1,000 mcg/mL injection syringe carvedilol 25 mg tablet 1 tab BID 02/28/22 02/28/22 pravastatin 40 mg tablet 1 tab DAILY 02/28/22 02/28/22 Previous Rx's Medication Instructions Recorded walker #1 ea 02/23/22 acetaminophen 325 mg tablet 650 mg PO Q6H PRN 30 Days #240 tab 03/02/22 docusate sodium 100 mg capsule 100 mg PO BID 30 Days #60 cap 03/02/22 apixaban 5 mg tablet 10 mg PO BID 7 Days #28 tab 03/16/22 oxycodone 5 mg tablet 5 mg PO Q4H PRN 7 Days #42 tab 03/16/22 Allergies Allergy/AdvReac Type Severity Reaction Status Date / Time hydralazine Allergy Severe Nose Verified 02/23/22 13:15 Bleed, severe blood loss, hot flashes clopidogrel [From Plavix] Allergy Unknown Verified 03/17/22 16:57 atorvastatin [From Lipitor] AdvReac Joint Pain Verified 02/23/22 13:15 Review of Systems Review of Systems: Constitutional : No Weight loss, No Fever, No Chills, No Night Sweats, No Fatigue, No Malaise ENT/Mouth : No Hearing loss, No Ear Pain, No Nasal Congestion, No Sinus Pain, No Hoarseness, No sore throat, No Rhinorrhea, No Swallowing Difficulty Eyes: No Eye Pain, No Swelling, No Redness, No Foreign Body, No Discharge, No Vision Changes Cardiovascular : No Chest Pain, No SOB, No Dyspnea on Exertion, No Orthopnea, No Edema, No Palpitations Respiratory : No Cough, No Sputum, No Wheezing, No Smoke Exposure, No Dyspnea Gastrointestinal : No Nausea, No Vomiting, No Diarrhea, No Constipation, No abdominal Pain, No Hematochezia, No Melena Genitourinary : no irregular bleeding, No Dysuria, No Urinary Frequency, No Hematuria, No Urinary Incontinence, No Urgency, No Flank Pain, No Urinary Flow Changes, No Hesitancy Musculoskeletal : No joint pain, No Myalgias, No Joint Swelling Skin : No Skin Lesions, No rash Neuro : No Weakness, No Numbness, No Paresthesias, No Loss of Consciousness, No Dizziness, No Headache Psych : No Anxiety/Panic, No Depression, No SI/HI/AH/VH, No Social Issues, Heme/Lymph: No Bruising, No Bleeding,No Lymphadenopathy Endocrine : No Polyuria, No Polydipsia, No Temperature Intolerance [facility] Past Medical History Medical History Acute kidney injury superimposed on CKD Aftercare following left shoulder joint replacement surgery Cardiomyopathy Chronic kidney disease Constipation Diabetes Edema of both lower extremities Factor V Leiden History of diverticulosis Hx of deep venous thrombosis Hx pulmonary embolism Hypercholesteremia Hypertension Mild cognitive impairment Osteoarthritis Presence of IVC filter Surgical History History of bilateral cataract extraction Hx of colonoscopy Hx of shoulder surgery Social History Social History Household Members: Significant Other Housing: House Are you a primary professional healthcare representative to a significant other at home: No Do you presently have visiting nurse or other home services: No Patient Tobacco Use Status: Never used Tobacco Advance Directives: No Advance Directives Information Provided: Yes service: No Current occupational status: retired Physical Exam ED Vital Signs: Vital Signs - 24 hr 03/17/22 16:48 Temperature 97.1 F Pulse Rate 83 Respiratory Rate 18 Blood Pressure 127/55 L Pulse Oximetry 93 BMI result Body Mass Index 38.4 Const Other: Appearance: Alert. Oriented X3. No acute distress. Eyes: Pupils equal, round and reactive to light. ENT: Pharynx normal. Neck: Normal inspection. Neck supple. No lymph nodes noted. No crepitus CVS: Normal heart rate and rhythm. Pulses normal. Normal S1 and S2 Respiratory: No respiratory distress. Breath sounds normal. No Wheezing. No rales Abdomen: Soft and nontender. No rigidity. No distention. Skin: Skin warm and dry. Normal skin color. Normal skin turgor. Extremities: No lower extremity edema. No Lacerations. No Rash Neuro: Oriented X 3. No motor deficit. No sensory deficit. Moving all extremities. No slurred speech. CN 2 through 12 grossly intact Psych: calm, cooperative, normal affect Course Course Course Narrative: I discussed the patient with our pharmacist and with Dr. Kellogg who is on-call for Hematology/Oncology. 25 mg is not consider a high dose. There are patients that take 20 mg daily, patient basically took [address] Kellogg recommends to stop Eliquis for the next 2 days, Sunday and Sunday, and patient needs to call his primary care physician on Sunday for further instructions on the dosage of Eliquis. Also, Dr. Kellogg offered to have the patient call him on Sunday. Patient's family was expecting to get a reversal medication for Eliquis. I discussed with the patient and his son that at this time, this is not indicated. Patient has no active bleeding. Also, Dr. Kellogg does not recommend to start any reversal agents at this time. However, if patient does bleed, treatment can be started. I discussed with the patient that if he has any bleeding or any falls, head injury, he needs to return immediately to the hospital. I also discussed with the patient that this is true for any dose of Eliquis, including 2.5 mg b.i.d. dose Medical Decision Making Lab Data Result diagrams: 03/17/22 17:25 03/17/22 17:25 Labs: Lab Results 03/17/22 03/17/22 03/17/22 Range/Units 17:25 17:25 17:25 WBC 8.8 (4.8-10.8) X10*3/uL RBC 3.22 L (4.60-5.80) X10*6/uL Hgb 9.2 L (14.0-18.0) g/dl Hct 29.4 L (42.0-52.0) % MCV 91.3 (80.0-98.0) fL MCH 28.6 (27.0-33.0) pg MCHC 31.3 (31.0-36.0) g/dl RDW 14.1 (11.0-16.0) % Plt Count 390 (160-400) X10*3/uL MPV 8.9 L (9.4-12.4) fL Immature Gran % (Auto) 0.5 H (0.0-0.4) % Neut % (Auto) 56.4 (45-73) % Lymph % (Auto) 27.6 (20-40) % [place] % (Auto) 10.7 (2-11) % Eos % (Auto) 4.1 H (0-4) % Baso % (Auto) 0.7 (0-2) % Lymph # (Auto) 2.4 (1.2-4.9) X10*3/uL [place] # (Auto) 0.9 (0.1-1.2) X10*3/uL Eos # (Auto) 0.4 (0.0-0.4) X10*3/uL Baso # (Auto) 0.1 (0.0-0.2) X10*3/uL Abs Immat Gran (auto) 0.04 H (0.00-0.03) X10*3/uL Absolute Neuts (auto) 5.0 (2.0-8.3) x10*3/uL Absolute Nucleated RBC 0.000 (0.0-0.012) X10*3/uL Nucleated RBC % (auto) 0.0 (0.0-0.2) /100WBC PT 19.2 H (9.9-13.0) SEC INR 1.7 H (0.9-1.1) APTT 39.0 H (24.1-38.0) SEC Sodium 140 (135-145) mmol/L Potassium 4.8 (3.3-5.1) mmol/L Chloride 103 (96-108) mmol/L Carbon Dioxide 29 (22-29) mmol/L Anion Gap 13 (12-20) BUN 32 H (9-16) mg/dL Creatinine 1.93 H (0.5-1.4) mg/dL Estim Creat Clear Calc 36.9 Estimated GFR 34 Random Glucose 129 H (60-115) mg/dL Calcium 8.9 (8.4-10.2) mg/dL Discharge Plan Discharge Clinical Impression: Accidental medication overdose Patient Disposition: Home, Self-Care Instructions: Medication Safety for Older Adults (ED) Additional Instructions: If you see blood in the urine or in the stool or dark stool, you need to return to the emergency room. Also, if you fall or have any physical trauma, you need to return to the emergency room. Please stop taking Eliquis for the next 2 days, on SundayMarch 20, please call your primary care physician and prepress supervisor for further instructions regarding the dose of Eliquis but you should be taking. If you have any new symptoms, please return to the emergency room or call 911 Prescriptions: No Action apixaban 5 mg tablet 10 mg PO BID 7 Days Qty: 28 0RF Rx Instructions: 10mg beginning tonight amlodipine [Norvasc] 5 mg Tablet 7.5 mg PO DAILY 0RF cyanocobalamin (vitamin B-12) 1,000 mcg/mL Syringe 1,000 mcg QMONTH 0RF carvedilol 25 mg tablet 1 tab BID 0RF pravastatin 40 mg tablet 1 tab DAILY 0RF docusate sodium 100 mg Capsule 100 mg PO BID 30 Days Qty: 60 0RF acetaminophen 325 mg Tablet 650 mg PO Q6H PRN (Reason: Pain, Mild (Pain Scale 1-3)) 30 Days Qty: 240 0RF amitriptyline 25 mg tablet 50 mg PO BEDTIME 0RF apixaban 2.5 mg tablet 2.5 mg PO BID 0RF fluticasone propionate 50 mcg/actuation spray,suspension 2 spray intranasal DAILY PRN (Reason: Dry Nasal Passages) 0RF furosemide 20 mg tablet 20 mg PO DAILY 0RF Hold Instructions: Resume on 03/10/22. HOLD UNTIL CLEARED BY PCP glipizide 5 mg tablet 5 mg PO BID 0RF losartan 50 mg tablet 50 mg PO DAILY 0RF Hold Instructions: Resume on 03/10/22. HOLD UNTIL CLEARED BY PCP memantine 10 mg tablet 10 mg PO BID 0RF omeprazole 20 mg capsule,delayed release(DR/EC) 20 mg PO DAILY 0RF polyethylene glycol 3350 17 gram/dose powder 1 g PO BID PRN (Reason: Constipation) 0RF tamsulosin 0.4 mg capsule 0.4 mg PO DAILY 0RF cholecalciferol (vitamin D3) 50 mcg (2,000 unit) tablet 50 mcg PO DAILY 0RF (DME) walker Misc See Rx Instructions .MEDSUPPLY Qty: 1 0RF Rx Instructions: Folding Front wheeled walker oxycodone 5 mg tablet 5 mg PO Q4H PRN (Reason: Pain, Moderate (Pain Scale 4-6) 7 Days Qty: 42 0RF
[2022-03-17 20:30] VITALS: BP 122/88; PULSE 97; RESP 16; TEMP 37; O2SAT 96
[2022-03-17 20:41] LABS: Appearance Urine CLEAR; Color Urine YELLOW; Glucose Urine UA NEG (NEG); Leukocyte Esterase Urine NEG (NEG); Nitrite Urine NEG (NEG); PH 5.5 (5.0-8.0); Specific Gravity - Urine 1.025 (1.005-1.025); Urine Blood NEG (NEG); Urine Ketones NEG (NEG); Urine Protein NEG (NEG-TRACE)
[2022-03-17 21:41] VITALS: BP 132/56; PULSE 92; RESP 14; O2SAT 97
== END 2022-03-17 21:41 | disposition home or self-care (01) ==
PROVIDERS: Emergency Provider Emergency Medicine; PCP Physician Assistant
DX: T45.511A Poisoning by anticoagulants, accidental (unintentional), initial encounter (principal); Y92.9 Unspecified place or not applicable; I82.409 Acute embolism and thrombosis of unspecified deep veins of unspecified lower extremity; D68.51 Activated protein C resistance; I12.9 Hypertensive chronic kidney disease with stage 1 through stage 4 chronic kidney disease, or unspecified chronic kidney disease; E11.22 Type 2 diabetes mellitus with diabetic chronic kidney disease; N18.9 Chronic kidney disease, unspecified; Z86.711 Personal history of pulmonary embolism; Z96.649 Presence of unspecified artificial hip joint; Z95.828 Presence of other vascular implants and grafts
CPT/HCPCS: 36415; 80048; 81003; 85025; 85610; 85730; 99283

== ENCOUNTER 2022-03-31 10:00 | Outpatient (REF) | payer MEDICARE, MEDICAID, SELFPAY ==
[2022-03-31 13:49] LABS: Anion Gap 12 (12-20); Blood Urea Nitrogen 27 mg/dL (9-16); Carbon Dioxide 28 mmol/L (22-29); Chloride 103 mmol/L (96-108); Estimated Glomerular Filt Rate 36; Glucose Random 161 mg/dL (60-115); Potassium 4.8 mmol/L (3.3-5.1); Sodium 138 mmol/L (135-145)
== END 2022-03-31 10:01 | disposition home or self-care (01) ==
LOC: HO.HVNA 10:00
PROVIDERS: Visit Provider Internal Medicine
DX: R60.0 Localized edema (principal)
CPT/HCPCS: 36415; 80048

== ENCOUNTER 2022-05-29 08:02 | Outpatient (REF) | payer MEDICARE, MEDICAID, SELFPAY ==
--- NOTE | ~2022-05-29 | XR_ITS ---
EXAMINATION: XR PELVIS CLINICAL INFORMATION: Pain. COMPARISON: Radiographs dated 02/28/2022. TECHNIQUE: AP view of the pelvis. FINDINGS: There is bony demineralization. The right acetabular joint space is well-maintained. There is mild subchondral sclerosis of the right acetabular roof. The right femoral head appears smooth. There is an intact left hip total arthroplasty, with adjacent heterotopic bone formation. No hardware failure or loosening is seen. There is no acute fracture or dislocation. There are bilateral femoral atherosclerotic calcifications. There is incompletely characterized degenerative change of the lower lumbar spine. XR/XR pelvis 1-2V IMPRESSION: 1. There is very mild osteoarthritic change of the right hip. 2. There is an intact left hip total arthroplasty, hardware failure or loosening. There is heterotopic bone formation present adjacent to the arthroplasty.
== END 2022-05-29 08:03 | disposition home or self-care (01) ==
LOC: HO.HOSX 08:02
PROVIDERS: Visit Provider Orthopaedic Surgery
DX: M25.559 Pain in unspecified hip (principal); Z96.642 Presence of left artificial hip joint
CPT/HCPCS: 72170

== ENCOUNTER 2022-07-31 09:00 | Outpatient (RCR) | payer MEDICARE, MEDICAID, SELFPAY ==
[2022-06-14 09:03] VITALS: BP 134/68; PULSE 74
--- NOTE | 2022-06-14 09:54 | MHC.PT.EP ---
[facility] [place] [facility] [place] [facility] [place] [facility] [address] [phone] F: [phone] F: [phone] F: [phone] F: [phone] Physical Therapy Plan of Care Date of Evaluation: Date of Surgery: 02/28/22 Diagnosis: Presence of L artificial hip joint Assessment: Ezekiel is a 76 year old male who is referred to PT for presence of left artificial hip joint . He is 3.5 months post surgery. Post surgery Ezekiel had 2 weeks of home PT. He has not had any PT after that. On PT examination he presents with 4/10 pain in L hip with sit to stand, and walking, TTP over distal 1/3rd of suture, decreased L hip ROM, decreased L hip and knee strength, altered posture and balance. Due to these impairments he has pain and difficulty with ADLS like dressing lower body, getting in and out of car, walking and sit to stand. He would benefit from skilled PT to address the aforementioned impairments and improve tolerance to functional activities. Frequency and Duration: The patient will be seen 2/week for 5 weeks Short Term Goals: 1. Pt will have 50% decrease in pain which will enable him to walk without pain in 2 weeks. 2. Pt will demonstrate improved L hip flexion range which will enable him to dress is lower body in 3 weeks. Detention Goals: 1. Pt will demonstrate improved L hip flexor length (L hip extension) which will help improve gait mechanics and improve SLS on L LE in 4 weeks. 2. Pt will demonstrate an increase in muscle strength by 1 grade which will improve his ability to get in and out of a car and perform ADLS in 5 weeks. 3. Pt will be independent with [facility] for symptom management and maintenance following d/c in 5 weeks. Treatment Plan: Modalities to reduce pain, spasms and effusion. Manual therapy to restore motion and function. Therapeutic exercise to improve strength and flexibility. Neuromuscular re-education for posture and balance. Therapeutic activities to return to functional activities of daily living. Electronically signed by: Claudia Pascual PT DPT Please sign and return to therapist. Thank you for your referral.
--- NOTE | 2022-07-31 10:26 | MHC.PT.DC ---
[facility] [place] Office [place] Office [place] Office [address] [phone] F: [phone] F: [phone] F: [phone] F: [phone] Physical Therapy Discharge Report Diagnosis: Presence of L artificial hip joint Date of Surgery: 02/28/22 Date of Evaluation: 06/14/22 Date of Discharge: 07/31/22 Treatments to Date: 12 Cancellations to Date: 0 No Shows to Date: 0 Discharge Status: Achieved Goals Improved Function Independent with HEP Discharge Summary: Ezekiel has completed 12 PT visits. He has improved significantly and has achieved all goals set for him. He is therefore being d/c from PT today. He was in agreement with the plan. Electronically signed by: Claudia Pascual PT DPT Please sign and return to therapist. Thank you for your referral.
== END 2022-07-31 10:26 | disposition home or self-care (01) ==
LOC: HO.PT 09:00
PROVIDERS: Visit Provider Orthopaedic Surgery
DX: Z96.642 Presence of left artificial hip joint (principal)
CPT/HCPCS: 97110; 97112; 97161; 97530

== ENCOUNTER → 2022-08-29 09:37 | Outpatient (BNVA) | payer MEDICARE, MEDICAID, SELFPAY | PROVIDERS: PCP Internal Medicine; Visit Provider Physician Assistant | DX: M54.50 Low back pain, unspecified (principal); Z96.642 Presence of left artificial hip joint | CPT/HCPCS: 99212 ==

== ENCOUNTER 2022-11-16 10:39 | Outpatient (REF) | payer MEDICARE, MEDICAID, SELFPAY ==
--- NOTE | ~2022-11-16 | XR_ITS ---
EXAMINATION: XR PELVIS CLINICAL INFORMATION: Hip pain COMPARISON: Pelvic radiographs 05/29/2022, 02/28/2022, 02/23/2022 TECHNIQUE: AP x2 views of the pelvis are obtained. FINDINGS: There has been prior left hip arthroplasty. Hardware intact. No destructive process or osteolysis. There is old bulky spurring again seen bilateral superior acetabulum and chronic bulky corticated ossicle medial to greater trochanter. There are degenerative changes again seen right hip with mild superior hip joint narrowing and mild superior lateral acetabular spurring. No acute fracture or dislocation or destructive process. There are degenerative changes lower lumbar spine with bulky bridging osteophytes on the right and smaller left lateral osteophytes. The SI joints and pubis are unremarkable. XR/XR pelvis 1-2V IMPRESSION: 1. Prior left hip arthroplasty. Hardware intact. No destructive process or osteolysis. 2. Degenerative changes right hip and lower lumbar spine.
== END 2022-11-16 10:40 | disposition home or self-care (01) ==
LOC: HO.HOSX 10:39
PROVIDERS: Visit Provider Orthopaedic Surgery
DX: M25.551 Pain in right hip (principal); M47.9 Spondylosis, unspecified; E11.9 Type 2 diabetes mellitus without complications; Z96.642 Presence of left artificial hip joint
CPT/HCPCS: 72170; 99212

== ENCOUNTER → 2023-03-12 10:22 | Outpatient (BNVA) | payer MEDICARE, MEDICAID, SELFPAY | PROVIDERS: PCP Internal Medicine; Visit Provider Orthopaedic Surgery | DX: M16.11 Unilateral primary osteoarthritis, right hip (principal); I73.9 Peripheral vascular disease, unspecified; E11.9 Type 2 diabetes mellitus without complications; Z96.642 Presence of left artificial hip joint | CPT/HCPCS: 99212 ==

== ENCOUNTER 2025-08-26 10:22 | Outpatient (AMB) | payer MEDICARE, MEDICAID, SELFPAY ==
--- NOTE | 2025-08-26 10:35 | MHC.OFFVIS ---
Intake Visit Reasons: 6M/MCI Allergies hydralazine Allergy (Severe, Verified 03/12/23 10:40) Nose Bleed, severe blood loss, hot flashes clopidogrel (From Plavix) Allergy (Verified 03/12/23 10:40) Unknown atorvastatin (From Lipitor) Adverse Reaction (Verified 03/12/23 10:40) Joint Pain HPI Comments Details: 79-year-old man with mild cognitive impairment. Memory is stable . He gets tired if he walks a short distance and feels that his legs are weak. Saw his studio receptionist. He also tends to lose his balance and can fall easily. Walks with a cane. ?Occasional brief lightheaded dizziness on bending and standing up and in bed by turning to 1 side. Headaches are generally under control. Decreased hearing in both ears and occasional tinnitus. MRI showed extensive white matter changes consistent with chronic microvascular disease, more in the periventricular distribution and subcortical. His EEG was normal. Lab work has been unremarkable. On neuropsych testing , his global cognitive score to be average. Memory and executive functions were average. There was minimal impairment of visuospatial processing. There was some delay and impairment of nonverbal memory compared from memory. He also has insomnia. [facility] Medical History (Updated 08/26/25 @ 10:46 by Becca Conner MD) Acute kidney injury superimposed on CKD Hypercholesteremia History of diverticulosis Constipation Osteoarthritis Mild cognitive impairment Edema of both lower extremities Hx pulmonary embolism Cardiomyopathy Chronic kidney disease Diabetes Hx of deep venous thrombosis Presence of IVC filter Factor V Leiden Hypertension Aftercare following left shoulder joint replacement surgery Surgical History Hx of colonoscopy History of bilateral cataract extraction Hx of shoulder surgery Social History Household Members: Significant Other Housing: House Are you a primary health care manager to a significant other at home: No Do you presently have visiting nurse or other home services: No Comment: medicated with oxycodone 5mg at 1745 Patient Tobacco Use Status: Never used Tobacco service: No Current occupational status: retired Physical Exam Neuro Other: Mini Mental Status Exam: Level of Consciousness:??Alert.?Orientation:??Knows correct year, month, date, day and season,?Knows correct city, county and state. Knows correct location and floor.?Registration:??Able to register 3 objects.?Attention:??Serial 7's performed accurately.?Recall:??Able to recall 3 out of 3 objects.?Language:??Normal spontaneous speech, fluency, repetition,naming, comprehension, reading and writing.?Total Score:??29/30.? General Examination: GENERAL APPEARANCE:??normal,?in no acute distress.?HEART:??S1, S2 normal,?no murmurs.?LUNGS:??clear anteriorly and posteriorly.?MUSCULOSKELETAL:??normal.?EXTREMITIES:??no edema.?PSYCH:??alert, oriented,?cognitive function intact,?cooperative with exam.? Neurological: Abnormal neurological findings:??right shoulder abduction weakness 4/5.?Mental Status:??alert and oriented X 3,?Normal attention, orientation, memory and affect.?Cranial Nerves:??Pupils are equal, round and reactive to light. Fundoscopy shows normal disc bilaterally. External ocular muscles are intact. Visual vásquez are full, no ptosis. Face is symmetrical, no facial weakness or droop. Facial sensations are normal. Tongue protrudes in midline. Palate elevates symmetrically. Shoulder shrugging is normal..?Motor Examination:??Normal muscle tone, bulk and strength,?No atrophy or fasciculations,?No drift of the extended upper extremities,?Deep tendon reflexes are 2+?,?Plantars are flexor?.?Straight Leg Raising:??90 degrees.?Sensory Exam:??Normal light touch, temperature, pinprick, vibration and joint-position sensations?,?Rhomberg sign is absent.?Coordination:??no ataxia,?no titubation,?[id number], [id number] test and rapid alternating movements were normal.?Gait Exam:??Within normal limits.?Cerebellar Signs:??[id number] and [id number] is normal,?no dysdiadochokinesia?.?Extrapyramidal System:??No tremor, rigidity with normal facial expressions,?No bradykinesia, no bradyphrenia. Normal arm swing and posture. No propulsion or retropulsion.?Speech:??Normal,?no dysphasia or dysarthria..? Assessment & Plan Assessment & Plan (1) Alzheimers disease: Code(s): G30.9 - Alzheimer's disease, unspecified; F02.80 - Dementia in other diseases classified elsewhere, unspecified severity, without behavioral disturbance, psychotic disturbance, mood disturbance, and anxiety Category: Medical (2) Mild cognitive impairment: Code(s): G31.84 - Mild cognitive impairment of uncertain or unknown etiology Category: Medical (3) Muscle tension headache: Code(s): G44.209 - Tension-type headache, unspecified, not intractable Category: Medical (4) Dizziness: Code(s): R42 - Dizziness and giddiness Category: Medical Plan He will continue his current medications. We will do labs to check his CBC metabolic profile thyroid and CPK because of his generalized weakness and dizziness Orders: Orders Basic Metabolic Panel Today R42 - Dizziness and giddiness TSH reflex Free T4 Today G31.84 - Mild cognitive impairment of uncertain or unknown etiology Complete Blood Count Auto Diff Today R42 - Dizziness and giddiness Creatine Kinase Total Today E11.9 - Type 2 diabetes mellitus without complications Coding Level of Care Code Est Pt Level 4 (70262) Diagnoses Alzheimers disease G30.9; F02.80 Mild cognitive impairment G31.84 Muscle tension headache G44.209 Dizziness R42
--- OUTSIDE RECORDS SUMMARY | 2025-08-26 12:52 | XMS_ITS | Clinical Summary ---
Author Organization [facility] Address [address] [facility] [address] [place] [address] Phone Care Team Providers Care Certified Low Vision Therapist Name Role Phone Toy Walden Primary Care Provider [phone] Allergies Active Allergy Reactions Criticality Noted Date Comments Atorvastatin Other (see comments) 03/23/2016 Hydralazine Other (see comments) 09/21/2014 Hot flashes/Flushing Medications amitriptyline (ELAVIL) 25 MG tablet Take 25 mg by mouth at bed time 3 Active acetaminophen (TYLENOL) 325 MG tablet Take 2 tablets by mouth 2 Active amLODIPine (NORVASC) 5 MG tablet TAKE 1&1/2 TABLETS DAILY 3 Active Eliquis 2.5 MG tablet Take 2.5 mg by mouth in the morning and 2.5 mg in the evening. 3 Active carvedilol (COREG) 25 MG tablet Take 25 mg by mouth in the morning and 25 mg in the evening. 3 Active Cholecalciferol (Vitamin D3) 50 MCG (2000 UT) tablet Take 1 tablet by mouth 1 (one) time each day 3 Active cyanocobalamin (VITAMIN B-12) 1000 MCG/ML injection Inject 1,000 mcg into the shoulder, thigh, or buttocks 3 Active Jardiance 25 MG tablet Take by mouth every morning 3 Active fluticasone (FLONASE) 50 MCG/ACT nasal spray INHALE 2 SPRAYS IN EACH NOSTRIL ONCE DAILY 3 Active furosemide (LASIX) 20 MG tablet 20 mg 1 (one) time each day 3 Active glipiZIDE (GLUCOTROL) 5 MG tablet TAKE ONE TABLET DAILY WITH FOOD 3 Active memantine (NAMENDA) 10 MG tablet Take 10 mg by mouth in the morning and 10 mg in the evening. 3 Active omeprazole (PriLOSEC) [address] capsule Take 20 mg by mouth 1 (one) time each day 3 Active polyethylene glycol (GLYCOLAX) 17 GM/SCOOP powder MIX 17 GRAM IN EIGHT OUNCE of WATER OR JUICE AND DRINK TWICE DAILY 3 Active tamsulosin (FLOMAX) 0.4 MG 24 hr capsule TAKE ONE CAPSULE DAILY 30 MINUTES FOLLOWING THE SAME MEAL EACH DAY 3 Active Active Problems Problem Noted Date Diagnosed Date Essential hypertension 11/25/2021 3 Chronic kidney disease stage 3 05/05/2020 0 06/29/2023 Resolved Problems Problem Noted Date Diagnosed Date Resolved Date Chronic diastolic heart failure 06/29/2023 06/29/2023 Chronic embolism and thrombo sis of unspecified deep veins of unspecified distal lower extremity 06/29/2023 06/29/2023 06/29/2023 Fatigue 06/29/2023 06/29/2023 06/29/2023 Inferior vena cava filter in situ 06/29/2023 023 06/29/2023 Memory loss 06/29/2023 06/29/2023 06/29/2023 Obstructive sleep apnea syndrome 06/29/2023 06/29/20 23 06/29/2023 Peripheral venous insufficiency 06/29/2023 3 06/29/2023 Restrictive lung disease 12/20/2022 06/29/202310/2022 Overview (06/29/2023): Last Assessment & Plan: Patient has CT scanning changes and pulmonary function test changes compatible with restrictive lung disease. The differential diagnosis in addition to ILD includes heart failure. Even if this is true interstitial lung disease in a non-smoker patient that clinically has only mild dyspnea there is no indication for aggressive testing like open lung biopsy. He has an upcoming appointment with his operational review sergeant in [place]. A trial of increasing diuretics may be worth it. I will continue following him clinically and with PFTs in a yearly basis. History of total hip arthroplasty 04/17/2022 023 06/29/2023 Shortness of breath 04/11/2022 06/29/2023 06/29/20 23 Overview (06/29/2023): Last Assessment & Plan: Dyspnea on exertion is likely multifactorial. He does have some interstitial changes on CT and PFTs that resemble interstitial lung disease but with a history of heart failure I would wonder if this is interstitial edema. CT comparison from 2019 showed that the interstitial changes are more pronounced. I explained Ezekiel that given that his dyspnea is mild at this point there is no indication for aggressive diagnostic testing like biopsies. I explained just that that most likely his dyspnea is multifactorial. Regarding the possibility of ILD, see above. Hypoxemia 04/11/2022 06/29/2023 06/29/2023 Overview (06/29/2023): Last Assessment & Plan: Patient can not walk at this time to do a 6-minute walk but I do think this was transient after the surgery. We will repeat a 6-minute walk when he comes back in 3 months. Vitamin D deficiency 10/11/2020 06/29/2023 023 Interferon gamma assay positive 07/02/2019 3 06/29/2023 Type 2 diabetes mellitus without complication 09/27/20 18 06/29/2023 06/29/2023 Dilated cardiomyopathy 06/23/2018 06/29/202306/29 Overview (06/29/2023): Cardiology (06/18/18): Recent symptoms of dyspnea are not likely due to congestive heart failure. Dyspnea is more likely an appointment basis. Fatigue may be secondary to beta lorraine medication. Advised to stop Entresto. Decrease carvedilol to 12.5 mg twice a day. Begin losartan 25 mg daily. Cardiology (05/23/18): Followed by Dr. Dereje Costa on 05/23/18. In 2000, he was diagnosed with DVT and pulmonary embolism. An IVC filter was placed. Diagnosis factor V Leyden. Patient is seen for dyspnea with minimal exertion. No definite evidence of congestive heart failure on examination. Patient was recommended to start on Entresto 24-26 mg twice a day. Repeat echocardiogram in 3 weeks. 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 No new nodules identified and there has been no interval enlargement of existing nodules. Cardiology has scheduled for pulmonary consultation for his pulmonary nodules. Last Assessment & Plan: Stable pulmonary nodule. No need for follow-up at this point in a non-smoker patient. Heterozygous Factor V Leiden mutation 09/21/201410/202206/29/2023 Edema of lower extremity 05/09/2012 06/29/202310/2022 Increased blood pressure 05/07/201210/2022 Overview (06/29/2023): Nuclear stress test (07/30/17): No significant ischemia, no evidence of infarct, abnormal left ventricle systolic function, 36% Echocardiogram (08/16/17): Left ventricle systolic function is low-normal, ejection fraction 55-55%, mild aortic valve sclerosis, mild concentric left ventricular hypertrophic Impaired cognition 02/07/2012 06/29/2023 Overview (06/29/2023): Neurology (08/21/17): Doing well with stable memory. MRI showed extensive white matter changes consistent with chronic microvascular disease more in the periventricular distribution subcortical. His EEG is normal. Lab work unremarkable. Was given amitriptyline 25 mg 2 tabs at bedtime for muscle tension headache. Erectile dysfunction 07/19/2011 06/29/2023 023 Overview (06/29/2023): Followed by urology, started on tamsulosin. Dr. Bimal Quiñonez Osteoarthritis of hip 07/01/2010 06/29/20232022 Constipation 06/01/2010 06/29/2023 06/29/2023 Vitamin B12 deficiency 05/12/2010 06/29/202306/29 Benign neoplasm of colon 12/20/2009 06/29/202310/2022 Overview (06/29/2023): Small sigmoid colon polyp removed at colonoscopy 12/20/2009, diverticulosis, incomplete examination to the mid right colon. Tubular adenoma. Barium enema 01/17/10, negative examination. Consider colonoscopy 2014. Diverticulitis of colon 12/20/2009 06/29/2023 09/0 10/2022 Overview (06/29/2023): Incidental finding at colonoscopy 12/20/2009. H/O: pulmonary embolus 02/16/2009 06/29/202306/29 Overview (06/29/2023): He has an inferior vena cava filter in place. Cataract 02/13/2009 06/29/2023 06/29/2023 Edema 01/12/2009 06/29/2023 06/29/2023 Pure hypercholesterolemia 01/12/2009 06/29/2023 Immunizations Immunization Administration Dates Next Due Tdap 03/09/2011 Social History Tobacco Use Types Packs/Day Years Used Date Smoking Tobacco: Never Passive Smoke Exposure: Never Smokeless Tobacco: Never Tobacco Cessation:Counseling Given: No Alcohol Use Standard Drinks/Week Comments Never 0 (1 standard drink = 0.6 oz pur e alcohol) Comments Unknown Sex and Gender Information Value Date Recorded Sex Assigned at Not on file Legal Sex Female 4:51 PM EST Gender Identity Not on file Sexual Orientation Not on file Last Filed Vital Signs Vital Sign Reading Time Taken Comments Blood Pressure 120/62 06/29/2023 10:24 AM EDT Pulse 78 06/29/2023 10:24 AM EDT Temperature - - Respiratory Rate - - Oxygen Saturation 93% 06/29/2023 10:24 AM EDT Inhaled Oxygen Concentration - - Weight 106 kg (234 lb) 06/29/2023 10:24 AM EDT Height - - Body Mass Index - - Plan of Treatment Health Maintenance Due Date Last Done Comments Pneumococcal Vaccine: 50+ Ye ars (1 of 2 - PCV) 1964 Influenza Vaccine (#1) 2025 Hepatitis B Vaccine Aged Out No longe r eligible based on patient's age to complete this topic Insurance Medicare Medicaid [place] Care Teams Certified Low Vision Therapist Relationship Specialty Start Date End Date Toy Walden PCP - General Internal Medicine 06/29/23
--- OUTSIDE RECORDS SUMMARY | 2025-08-26 12:52 | XMS_ITS | Encounter Summary ---
Author Organization [facility] Address [address] [place] [address] Care Team Providers Care Goodyear Welter Name Role Phone Sobia Maya MD Primary Care Provider [phone] Encounter Details Date Type Department Care Team ([facility] st Contact Info) Description 07/27/2025 Results Follow-Up Gastroenterology - [place] [address] [place] [address] Luis Felipe Valle DO [address] [place] [address] Social History Tobacco Use Types Packs/Day Years Used Date Smoking Tobacco: Never Smokeless Tobacco: Never Alcohol Use Standard Drinks/Week Comments Yes 0 (1 standard drink = 0.6 oz pur e alcohol) Housing Instability Answer Date Recorde d Are you worried that in the next 2 months you may not have stable housing? No 06/25/2025 Food Access & Nutrition Answer Date Rec orded Do you have access to a vari ety of food including fruits and vegetables? Yes 06/25/2025 Access to Healthcare Answer Date Record ed Within the last 3 months, ho w many times did you visit the emergency department for your medical care? 0 06/25/2025 Health Literacy Answer Date Recorded How often do you need to hav e someone help you when you read instructions, pamphlets, or other written material from your doctor or pharmacy? Sometimes 06/25/2025 Caregiver: How often do you need to have someone help you when you read instructions, pamphlets, or other written material from your doctor or pharmacy? Not on file 06/25/2025 Financial Risk Answer Date Recorded How hard is it for you to pa y for the very basics like food, housing, medical care, and air conditioning / heating? Somewhat hard 06/25/2025 Transportation Answer Date Recorded Has the lack of transportati on kept you from meetings, work, or from getting things needed for daily living? No Has the lack of transportati on kept you from medical appointments or from getting medications? No 06/25/2025 Social Isolation Answer Date Recorded How often do you feel lonely or isolated from th ose around you? Never 06/25/2025 Food Risk Answer Date Recorded Within the past 12 months we worried whether our food would run out before we got money to buy more. Sometimes true 025 Within the past 12 months th e food we bought just didn't last and we didn't have money to get more. Never true 06/25/2025 Dependent Care Answer Date Recorded Do you need help finding or paying for care for your loved ones. For example, children's nursery assistant or elderly care for an older adult? No 06/25/2025 Education Answer Date Recorded Do you think completing more education or training, like finishing a GED, going to college, or learning a trade, would be helpful for you? N/A 06/25/2025 Employment and Income Answer Date Recor ded During the last four weeks, have you been actively looking for work? No 06/25/2025 Living Situation Answer Date Recorded What is your living situation? Unrecognized valu e 06/25/2025 Interpersonal Safety Answer Date Record ed Physical Abuse Unrecognized value 07/23/2025 Verbal Abuse Unrecognized value 07/23/2025 Sex and Gender Information Value Date Recorded Sex Assigned at Male 12/21/2024 4:00 PM EST Legal Sex Male 5:24 AM EST Gender Identity Male 12/21/2024 4:00 PM EST Sexual Orientation Not on file documented as of this encounter Plan of Treatment Upcoming Encounters Date Type Department Care Team (Late st Contact Info) Description 09/23/2025 1:00 PM EST [facility] [address] [place] [phone] Sobia Maya MD [address] [place] documented as of this encounter Visit Diagnoses Not on filedocumented in this encounter Additional Health Concerns Assessment Noted Time A fall risk assessment has been complete d for the patient 06/25/2025 3:12 PM EDT documented as of this encounter Care Teams Goodyear Welter Relationship Specialty Start Date End Date Sobia Maya MD [address] [place] [address] PCP - General Internal Medicine 06/09/25 documented as of this encounter
--- OUTSIDE RECORDS SUMMARY | 2025-08-26 12:53 | XMS_ITS ---
Author Name [facility] Organization Unknown Care Team Organization Name Specialty Phone Email Start Date End Da te [facility] 06/17/2025 [facility] Toy Velásquez Primary Care 09/05/2022 06/16/2024
--- OUTSIDE RECORDS SUMMARY | 2025-08-26 12:53 | XMS_ITS | Clinical Summary ---
Author Organization [facility] Address [address] [place] [address] Care Team Providers Care Medical Technologist [employer] [facility] Name Role Phone Fabio Monge MD Primary Care Provider [phone] Allergies No known active allergies Medications * This document contains information received from the source organization and may not represent a complete record from that organization. CEFACLOR 250 MG OR CAPS 1 CAPSULE EVERY 8 HOURS Active FUROSEMIDE 40 MG OR TABS 1 TABLET am Active FUROSEMIDE 20 MG OR TABS 1 TABLET pm Active PRILOSEC OTC 20 MG OR TBEC 1 TABLET DAILY Active ROXICET 5-325 MG OR TABS 1 TABLET EVERY 6 HOURS NEEDED Active COUMADIN 5 MG OR TABS 1 TABLET DAILY Active PRAVASTATIN SODIUM 40 MG OR TABS 1 TABLET AT BEDTIME Active LORATADINE 10 MG OR TABS 1 TABLET DAILY Active Social History Tobacco Use Types Packs/Day Years Used Date Smoking Tobacco: Never Alcohol Use Standard Drinks/Week Comments Not Asked 0 (1 standard drink = 0.6 oz pur e alcohol) Sex and Gender Information Value Date Recorded Sex Assigned at Not on file Legal Sex Male 3:18 AM EDT Gender Identity Not on file Sexual Orientation Not on file Last Filed Vital Signs Vital Sign Reading Time Taken Comments Blood Pressure 130/82 06/18/2008 9:40 AM EDT pulseox on room air (from Extended Vitals) Pulse 94 06/18/2008 9:40 AM EDT (from Extended Vitals) Temperature - - Respiratory Rate - - Oxygen Saturation 97% 06/18/2008 9:3 9 AM EDT Inhaled Oxygen Concentration - - Weight 95.3 kg (210 lb) 06/18/2008 9:39 AM EDT Height 165.9 cm (5' 5.3 ) 05/07/2008 9: 54 AM EDT Body Mass Index 34.63 05/07/2008 9:54 AM EDT Plan of Treatment Health Maintenance Due Date Last Done Comments DTaP/Tdap/Td (1 - Tdap) 1963 Pneumococcal 50+ years (1 of 1 - PCV) 1994 Zoster (Shingrix) (1 of 2) 1994 RSV (1 - 1-dose 75+ series) 2019 COVID-19 Vaccine (1 - 2024-2 6 season) 2025 Influenza (#1) 2025 HPV Vaccine (No Doses Required) Completed Hep A Aged Out No longer eligi ble based on patient's age to complete this topic Hep B Aged Out No longer eligi ble based on patient's age to complete this topic Hib Aged Out No longer eligi ble based on patient's age to complete this topic Meningococcal ACWY Aged Out No longer eligible based on patient's age to complete this topic Zoster (Zostavax) Discontinued Insurance MEDICARE PART B Care Teams Medical Technologist Blood Bank Relationship Specialty Start Date End Date Fabio Monge MD PCP - General 07/03/08
--- OUTSIDE RECORDS SUMMARY | 2025-08-26 12:53 | XMS_ITS | Clinical Summary ---
Author Organization [facility] Address [address] [place] [address] Phone Care Team Providers Care Undercutter Operator Name Role Phone Sobia Maya MD Primary Care Provider [phone] Allergies Active Allergy Reactions Criticality Noted Date Comments Atorvastatin Muscular Issues 03/23/2016 JOINT PAIN Hydralazine Anaphylaxis High 10/07/2022 Latex Anaphylaxis High 10/07/2022 Medications FREESTYLE LANCETS MISC Use to test blood sugars twice daily Dx: E11.51 E11.29 Active amitriptyline (ELAVIL) 25 mg tablet Take 50 mg by mouth at bedtime. Neuro Active apixaban (ELIQUIS) 2.5 mg tablet Take 1 Tablet by mouth 2 times daily. Active carvediloL (COREG) 25 mg tablet Take 1 Tablet by mouth 2 Times Daily. Active cyanocobalamin (VITAMIN B-12) 1,000 mcg/mL injection Inject 1 mL into the muscle every 30 days. Active fluticasone propionate (FLONASE) 50 mcg/actuation nasal spray INHALE 2 SPRAYS IN EACH NOSTRIL ONCE DAILY Active memantine (NAMENDA) 10 mg tablet Take 1 Tab by mouth 2 times daily. Active pravastatin (PRAVACHOL) 40 mg tablet Take 40 mg by mouth daily. Active empagliflozin (Jardiance) 25 mg tablet Take 25 mg by mouth every morning Active cholecalciferol (VITAMIN D-3) 50 mcg (2,000 unit) tablet TAKE ONE TABLET EVERY DAY 90 tablet 1 12/24/19 25 Active acetaminophen (TYLENOL) 325 mg tablet Take 2 tablets (650 mg total) by mouth every 6 (six) hours if needed for mild pain. 30 tablet 2 12/26/19 25 Active omeprazole (PriLOSEC) [address] capsule TAKE ONE CAPSULE DAILY, DO NOT BREAK, CRUSH, DISSOLVE OR CHEW 90 capsule 1 03/11/20 25 Active furosemide (LASIX) 20 mg tablet TAKE ONE TABLET BY MOUTH EVERY sun, sun, sunday03/25/20 25 Active ferrous sulfate 325 mg (65 mg iron) EC tabletIndicatio ns:Iron deficiency anemia, unspecified iron deficiency anemia type Take 1 tablet (325 mg total) by mouth 1 (one) time each day with breakfast. Do not crush, chew, or split. 90 tablet 06/25/20 25 Active glipiZIDE (GLUCOTROL) 5 mg tablet Take 2 tablets in the morning with food and 1 tablet with supper. 06/29/20 25 Active polyethylene glycol (PEG) 17 gram/dose oral powderIndicatio ns:Constipation , unspecified STIR 17GM INTO 8 OUNCES OF WATER, OR JUICE, AND DRINK TWICE DAILY NEEDED / DIRECTED 510 g 2 07/02/20 25 Active amLODIPine (NORVASC) 5 mg tablet Take 1 tablet (5 mg total) by mouth 1 (one) time each day. 90 tablet 1 08/14/20 25 Active tamsulosin (FLOMAX) 0.4 mg 24 hr capsule TAKE ONE CAPSULE DAILY 30 MINUTES FOLLOWING THE SAME MEAL EACH DAY 90 capsule 1 08/14/20 25 Active tamsulosin (FLOMAX) 0.4 mg 24 hr capsule TAKE ONE CAPSULE DAILY 30 MINUTES FOLLOWING THE SAME MEAL EACH DAY 90 capsule 1 02/21/20 25 025 Discontinued amLODIPine (NORVASC) 5 mg tablet Take 1 tablet (5 mg total) by mouth 1 (one) time each day. 03/25/20 25 025 Discontinued Hospital, Clinic, or Other Facility Administered Medication Ordered Dose Route Frequency Start Date End Date Status cyanocobalamin (VITAMIN B-12) injection 1,000 mcgIndications:Vitamin B12 deficiency 1000 mcg IM Every 30 days 03/25/2025 Active Active Problems Problem Noted Date Diagnosed Date Aortic valve sclerosis 08/19/2024 Nonrheumatic aortic valve stenosis 02/21/2024 Restrictive lung disease 12/20/2022 Overview (08/20/2024): Last Assessment & Plan: 78-year-old man with restrictive lung pattern pulmonary function test. Likely this is secondary to heart failure given his increased abdominal girth, lower extremity edema. He has an upcoming appointment in [place] with his cardiology in November and already his primary care physician increase the diuretics. Chronic heart failure with p reserved ejection fraction ([facility] V24, [facility] V28) 10/31/2022 S/P total left hip arthroplasty 04/17/2022 Hypoxemia 04/11/2022 Overview (08/20/2024): Last Assessment & Plan: Patient can not walk at this time to do a 6-minute walk but I do think this was transient after the surgery. We will repeat a 6-minute walk when he comes back in 3 months. Dyspnea on exertion 04/11/2022 Overview (08/20/2024): Last Assessment & Plan: Likely multifactorial and secondary to heart disease, deconditioning and less likely interstitial lung disease. His physical examination is normal from the pulmonary standpoint of view but he does have increased abdominal care and lower extremity edema. I agree with increasing diuretics. And wondering about the cardiology opinion. We would request records. I will repeat another pulmonary function test in 3 months after he is evaluated by his pc installation engineer. Hypertension 11/25/2021 History of arthroplasty of left hip 06/29/2021 Vitamin D deficiency 10/11/2020 Type 2 diabetes mellitus wit h cataract ([facility] V24, [facility] V28) 10/11/2020 DM (diabetes mellitus), type 2 with renal complications ([facility] V24, [facility] V28) 10/11/2020 Assessment & Plan (03/25/2025 1:47 PM EDT): Diabetic diet discussed. Will check patient's A1c level. Continue current regimen of empagliflozin, glipizide. Will monitor his creatinine for CKD. Avoid NSAIDs. Orders: Hemoglobin A1c; Future CKD (chronic kidney disease) stage 3, GFR 30-59 ml/min ([facility] V24, [facility] V28) 05/05/2020 Assessment & Plan (04/23/2025 2:10 PM EDT): We will avoid NSAIDs. I will check his vitamin D levels as well. 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 Type 2 diabetes mellitus wit hout complication, without long-term current use of insulin ([facility] V24, [facility] V28) 03/25/2019 DM (diabetes mellitus), type 2 with peripheral vascular complications ([facility] V24, [facility] V28) 09/27/2018 Cardiomyopathy ([facility] V24, [facility] V28) 2017 Overview (08/20/2024): Cardiology (06/18/18): Recent symptoms of dyspnea are [...] Echo (06/18/18): EF 50-55%, mild concentric LVH Pulmonary nodule 12/18/2017 Overview (08/20/2024): CT chest (05/23/18) : Numerous small pulmonology nodules present scattered throughout both lung vásquez probably representing granulomatosa disease. No new nodules identified and there has been no interval enlargement of existing nodules. Cardiology has scheduled for pulmonary consultation for his pulmonary nodules. Last Assessment & Plan: Stable pulmonary nodule. No need for follow-up at this point in a non-smoker patient. Obstructive sleep apnea syndrome 11/22/2017 Chronic deep vein thrombosis (DVT) of distal vein of lower extremity ([facility] V24, [facility] V28) 07/09/2017 Fatigue 07/09/2017 Memory loss 07/09/2017 Presence of IVC filter 07/09/2017 Venous insufficiency 07/09/2017 Factor 5 Leiden mutation, heterozygous ([facility] V24) 09/21/2014 Lower extremity edema 05/09/2012 Known medical problems 05/07/2012 Overview (08/20/2024): Nuclear stress test (07/30/17): No significant ischemia, no evidence of infarct, abnormal left ventricle systolic function, 36% Echocardiogram (08/16/17): Left ventricle systolic function is low-normal, ejection fraction 55-55%, mild aortic valve sclerosis, mild concentric left ventricular hypertrophic MCI (mild cognitive impairment) 02/07/2012 Overview (08/20/2024): Neurology (08/21/17): Doing well with stable memory. MRI showed extensive white matter changes consistent with chronic microvascular disease more in the periventricular distribution subcortical. His EEG is normal. Lab work unremarkable. Was given amitriptyline 25 mg 2 tabs at bedtime for muscle tension headache. Erectile dysfunction 07/19/2011 Overview (08/20/2024): Followed by urology, started on tamsulosin. Dr. Bimal Quiñonez Osteoarthrosis, hip 07/01/2010 Constipation 06/01/2010 Vitamin B12 deficiency 05/12/2010 Assessment & Plan (03/25/2025 1:47 PM EDT): He does receive B12 injections monthly for his B12 deficiency. Orders: cyanocobalamin (VITAMIN B-12) injection 1,000 mcg Benign neoplasm of colon 12/20/2009 Overview (08/20/2024): Small sigmoid colon polyp removed at colonoscopy 12/20/2009, diverticulosis, incomplete examination to the mid right colon. Tubular adenoma. Barium enema 01/17/10, negative examination. Consider colonoscopy 2014. Diverticulitis of colon without hemorrhage 12/20 Overview (08/20/2024): Incidental finding at colonoscopy 12/20/2009. Cataract 02/13/2009 Edema 01/12/2009 Hypercholesterolemia 01/12/2009 Assessment & Plan (03/25/2025 1:47 PM EDT): Follow low-cholesterol diet. Continue pravastatin. Encounters Date Type Department Care Team Description 08/07/2025 Telephone Gastroenterology - [place] [address] [facility] [address] [place] [phone] Shruti Dorado NP 07/27/2025 Results Follow-Up Gastroenterology - [place] [address] [facility] 175 [facility] [address] [place] [phone] Lawrence Valle DO 07/23/2025 3:13 PM EDT Anesthesia Event [facility] [address] [place] [phone] Curtis Hawthorne MD 07/23/2025 2:30 PM EDT - 07/23/2025 11:59 PM EDT Hospital Encounter [facility] [address] [place] [phone] Lawrence Valle DO Gomes, Sheldon B, MD Johnson, Lorraine, CRNA Esophageal dysphagia Discharge Disposition: Home or Self Care 07/20/2025 Telephone Gastroenterology - [place] [address] [facility] 175 [facility] [address] [place] [phone] Lawrence Valle DO 07/15/2025 Telephone Gastroenterology - [address] [facility] [address] [facility] [address] [place] [phone] Marianela Ching MA 07/06/2025 Telephone Internal Medicine - [place] [address] [place], [place] [phone] Eliana Flaherty MA 06/25/2025 3:00 PM EDT Office Visit Internal Medicine - [facility] [address] [place], [place] [phone] Toy Velásquez MD Encounter for annual wellness visit (AWV) in Medicare patient (Primary Dx); Iron deficiency anemia, unspecified iron deficiency anemia type; Constipation, unspecified constipation type; Type 2 diabetes mellitus with stage 3 chronic kidney disease, without long-term current use of insulin, unspecified whether stage 3a or 3b CKD ([facility] V24, [facility] V28) 06/15/2025 Telephone Internal Medicine - [place] [address] [place] [phone] Gisele Le MA 06/04/2025 10:00 AM EDT Ancillary Procedure [facility] - [address] [place] [phone] PAD (peripheral artery disease) (CMS/HCC V24); Leg pain, bilateral 06/04/2025 Telephone Internal Medicine - [place] [address] [place], [place] [phone] Mylene Pritchett RN from Last 3 Months Immunizations Immunization Administration Dates Next Due Tdap Tetanus diptheria acell ular pertussis (Boostrix; Adacel) 7yo and older 03/09/2011 Surgical History Surgery Date Site/Laterality Comments COLONOSCOPY 12/20/2009 PROCEDURE: HISTORICAL COLONOSCOPY; COMMENT: small sigmoid colon polyp: Tubular adenoma. OTHER SURGICAL HISTORY 01/17/2010 PROCEDURE: RADIOLOGIC EXAM COLON SINGLE CONTRAST STUDY; COMMENT: Negative; diverticulosis in hepatic flexure ROTATOR CUFF REPAIR 2000 PROCEDURE: HISTORICAL ROTATOR CUFF REPAIR; COMMENT: left - due to a fall Medical History Medical History Date Comments Tympanic membrane perforation 05/19/2009 DX :Tympanic membrane perforation Benign neoplasm of colon 12/20/2009 DX:Luis gn neoplasm of colon Diverticulosis of colon (wit hout mention of hemorrhage) 12/20/2009 DX:Diverticulosis of colon ( without mention of hemorrhage) Constipation 06/01/2010 DX:Constipation Memory problem 02/07/2012 DX:Memory proble m Factor 5 Leiden mutation, he terozygous (CMS/HCC V24) 09/21/2014 DX:Factor 5 Leiden mutation, heterozygous (HCC) Pulmonary nodule 12/18/2017 DX:Pulmonary no dule Cardiomyopathy (CMS/HCC V24, CMS/HCC V28) 06/23/2018 DX:Cardiomyopathy (HCC) Type 2 diabetes mellitus (CM S/HCC V24, CMS/HCC V28) 09/27/2018 DX:Type 2 diabetes mellitus (HCC) 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 DX:Positive QuantiFERON-TB Gold test CKD (chronic kidney disease) stage 3, GFR 30-59 ml/min (CMS/HCC V24, CMS/HCC V28) 05/05/2020 DX:CKD (chronic kidney disea se) stage 3, GFR 30-59 ml/min ([facility]) DM (diabetes mellitus), type 2 with peripheral vascular complications ([facility] V24, [facility] V28) 09/27/2018 DX:DM (diabetes mellitus), type 2 with peripheral vascular complications (HCC) DM (diabetes mellitus), type 2 with renal complications ([facility] V24, [facility] V28) 10/11/2020 DX:DM (diabetes mellitus), t ype 2 with renal complications (HCC) Type 2 diabetes mellitus wit h cataract ([facility] V24, [facility] V28) 10/11/2020 DX:Type 2 diabetes mellitus with cataract (HCC) Vitamin D deficiency 10/11/2020 DX:Vitamin D deficiency Hypertension 11/25/2021 DX:Hypertension Family History Medical History Relation Name Comments Other: undefined clotting problem Father Diabetes Mother alive in her 90 s Relation Name Status Comments Father Mother Social History Tobacco Use Types Packs/Day Years Used Date Smoking Tobacco: Never Smokeless Tobacco: Never Tobacco Cessation:Counseling Given: Not Answered Alcohol Use Standard Drinks/Week Comments Yes 0 [...] care for your loved ones. For example, director child or elderly care for an older adult? [...] PM EST Sexual Orientation Not on file Obstetrics History Last Filed Vital Signs Vital Sign Reading Time Taken Comments Blood Pressure 143/87 07/23/2025 3:52 PM EDT Pulse 84 07/23/2025 3:52 PM EDT Temperature 36.9 C (98.5 F) 07/23/2025 3:32 PM EDT Respiratory Rate 22 07/23/2025 3:52 PM EDT Oxygen Saturation 94% 07/23/2025 3:52 PM EDT Inhaled Oxygen Concentration - - Weight 108 kg (237 lb) 07/23/2025 3:04 PM EDT Height 167.6 cm (5' 6 ) 07/23/2025 3:04 PM EDT Body Mass Index 38.25 07/23/2025 3:04 PM EDT Plan of Treatment Upcoming Encounters Date Type Department Care Team (Late st Contact Info) Description 09/23/2025 1:00 PM EST Office Visit Internal Medicine - [facility] [address] [facility] [place] [phone] Sobia Maya MD [address] [facility] [place] Health Maintenance Due Date Last Done Comments COVID-19 Vaccine (#1) 1949 Diabetes: Annual Foot Exam 1954 Diabetes: Annual Retina Eye Exam 1954 Pneumococcal Vaccine: 50+ Years (1 of 2 - PCV) 1963 Zoster Vaccines (1 of 2) 1963 RSV Immunization Adult Patients (1 - 1-dose 75+ series) 2019 DTaP,Tdap,and Td Vaccines (2 - Td or Tdap) 03/09/2021 03/09/2011 Depression Screening 10/29/2024 Influenza Vaccine (#1) 2025 Diabetes: Blood Sugar Control Test (HGBA1C) 12/26/2025 06/25/2025, 03/25/2025, 02/11/2024 Diabetes: Annual GFR (Glomerular Filtration Rate) 03/25/2026 03/25/2025, 02/17/2025, 02/17/2025, Additional history exists Hypertension/CHF/CAD Annual BMP Blood Test 03/25/2026 03/25/2025, 02/17/2025, 02/17/2025, Additional history exists Diabetes: Annual Urine Albumin-Creatinine Ratio (uACR) 06/25/2026 06/25/2025, 04/17/2023 Medicare Annual Wellness Visit 06/25/2026 06/25/2025 Social Influencers of Health Screening 06/25/2026 06/25/2025 Falls Risk Assessment 07/23/2026 07/23/2025 , 06/25/2025, 06/25/2025 Cholesterol Screening (Lipid Panel) 02/17/2030 02/17/2025, 02/05/2024, 04/17/2023 Colorectal Cancer Screening: Colonoscopy 06/03/2030 06/03/2025, 12/20/2009 HIB Vaccines Aged Out No longer eligi ble based on patient's age to complete this topic HPV Vaccines Aged Out No longer eligi ble based on patient's age to complete this topic Hepatitis A Vaccines Aged Out No long er eligible based on patient's age to complete this topic Hepatitis B Vaccines Aged Out No long er eligible based on patient's age to complete this topic IPV Vaccines Aged Out No longer eligi ble based on patient's age to complete this topic MMR Vaccines Aged Out No longer eligi ble based on patient's age to complete this topic Meningococcal ACWY Vaccine Aged Out N o longer eligible based on patient's age to complete this topic Meningococcal B Vaccine Aged Out No l onger eligible based on patient's age to complete this topic RSV Immunization Patients Under 20 months Aged Out No longer eligible based on patient's age to complete this topic Varicella Vaccines Aged Out No longer eligible based on patient's age to complete this topic Procedures Procedure Name Priority Date/Time Associated Diagnosis Comments EXTERNAL CLINICAL LAB 08/11/2025 EGD Routine 07/23/2025 3:31 PM EDT Esophageal dysphagia TISSUE EXAM Routine 07/23/2025 3:23 PM EDT Esophageal dysphagia HEMOGLOBIN A1C Routine 06/25/2025 4:05 PM EDT Type 2 diabetes mellitus with stage 3 chronic kidney disease, without long-term current use of insulin, unspecified whether stage 3a or 3b CKD ([facility] V24, [facility] V28) MICROALBUMIN CREATININE URINE RATIO Routine 06/25/2025 4:05 PM EDT Type 2 diabetes mellitus with stage 3 chronic kidney disease, without long-term current use of insulin, unspecified whether stage 3a or 3b CKD ([facility] V24, [facility] V28) VAS US DUPLEX LOWER EXT ARTERIES BILAT WITH AUDREY Routine 06/04/2025 10:37 AM EDT PAD (peripheral artery disease) ([facility] V24) Leg pain, bilateral EXTERNAL COLONOSCOPY REPORT Routine 06/03/2025 2:40 PM EDT COMPREHENSIVE METABOLIC PANEL Routine 03/25/2025 12:53 PM EDT Abdominal bloating LIPID PANEL Routine 04/17/2023 from Last 3 Months or Most Recently Relevant to Health Maintenance Results * External clinical lab (08/11/2025) us Provider [facility] BLOOD ORDERABLES Fin al Result * EGD Anesthesia - MAC; [facility] ENDOSCOPY (07/23/2025 3:31 PM EDT) Anatomical Region Laterality Modality Endoscopy 07/23/2025 3:19 PM EDT Impressions 07/23/2025 3:28 PM EDT - Normal stomach. - Normal examined duodenum. - Benign-appearing esophageal stenosis. Dilated. Biopsied. Recommendation: - Discharge patient to home. - Soft diet today. - Continue present medications. - Await pathology results. Narrative 07/23/2025 3:28 PM EDT [facility] GI Patient Name: Ezekiel Hahn Procedure Date: 07/23/2025 3:19 PM Date of : 1945 Age: 79 Gender: Male Note Status: Finalized Attending MD: Lawrence Valle DO, [id number] Procedure Date No Time: 07/23/2025 Procedure: Upper GI endoscopy Indications: Dysphagia Providers: Lawrence Valle DO Referring MD: Pasha Quintanilla MD Medicines: Monitored Anesthesia Care Complications: No immediate complications. Estimated blood loss: Minimal. Estimated Blood Loss: Estimated blood loss was minimal. Procedure: Pre-Anesthesia Assessment: - - Prior to the procedure, a History and Physical was performed, and patient medications and allergies were reviewed. The patient is competent. The risks and benefits of the procedure and the sedation options and risks were discussed with the patient. All questions were answered and informed consent was obtained. Patient identification and proposed procedure were verified by the physician, the nurse, the anesthesiologist, the gyroscopic instrument mechanic and the animal laboratory technician in the pre-procedure area in the endoscopy suite. Mental Status Examination: alert and oriented. Airway Examination: normal oropharyngeal airway and neck mobility. Respiratory Examination: clear to auscultation. CV Examination: normal. Prophylactic Antibiotics: The patient does not require prophylactic antibiotics. Prior Anticoagulants: The patient has taken no anticoagulant or antiplatelet agents. ASA Grade Assessment: III - A patient with systemic disease. After reviewing the risks and benefits, the patient was deemed in satisfactory condition to undergo the procedure. The anesthesia plan was to use monitored anesthesia care (MAC). Immediately prior to administration of medications, the patient was re-assessed for adequacy to receive sedatives. The heart rate, respiratory rate, oxygen saturations, blood pressure, adequacy of pulmonary ventilation, and response to care were monitored throughout the procedure. The physical status of the patient was re-assessed after the procedure. After obtaining informed consent, the endoscope was passed under direct vision. Throughout the procedure, the patient's blood pressure, pulse, and oxygen saturations were monitored continuously. The Endoscope was introduced through the mouth, and advanced to the second part of duodenum. The upper GI endoscopy was accomplished without difficulty. The patient tolerated the procedure well. Findings: The stomach was normal. The examined duodenum was normal. One benign-appearing, intrinsic mild stenosis was found 36 cm from the incisors. This stenosis measured 1.7 cm (inner diameter) x less than one cm (in length). The stenosis was traversed. A TTS dilator was passed through the scope. Dilation with an 18-19-20 mm balloon dilator was performed to 20 mm. The dilation site was examined following endoscope reinsertion and showed complete resolution of luminal narrowing. Estimated blood loss was minimal. Biopsies were taken with a cold forceps for histology. Estimated blood loss was minimal. Procedure Code(s): --- Professional --- 10695, Esophagogastroduodenoscopy, flexible, transoral; with transendoscopic balloon dilation of esophagus (less than 30 mm diameter) 13241, 59, Esophagogastroduodenoscopy, flexible, transoral; with biopsy, single or multiple Diagnosis Code(s): --- Professional --- R13.10, Dysphagia, unspecified K22.2, Esophageal obstruction CPT copyright 2020 [employer]. All rights reserved. The codes documented in this report are preliminary and upon linux support engineer review may be revised to meet current compliance requirements. LAWRENCE Valle DO 07/23/2025 3:28:26 PM This report has been signed electronically.Lawrence Valle DO Number of Addenda: 0 Note Initiated On: 07/23/2025 3:19 PM Scope In: Scope Out: Endoscopy Department at [facility] - [address] [place] [id number] Procedure Note Lawrence Valle DO - 07/23/2025 [facility] GI Patient Name: Ezekiel Hahn Procedure Date: 07/23/2025 3:19 PM Date of : 1945 Age: 79 Gender: Male Note Status: Finalized Attending MD: Lawrence Valle DO, [id number] Procedure Date No Time: 07/23/2025 Procedure: Upper GI endoscopy Indications: Dysphagia Providers: Lawrence Valle DO Referring MD: Pasha Quintanilla MD Medicines: Monitored Anesthesia Care Complications: No immediate complications. Estimated blood loss: Minimal. Estimated Blood Loss: Estimated blood loss was minimal. Procedure: Pre-Anesthesia Assessment: - - Prior to the procedure, a History and Physicalwas performed, and patient medications and allergieswere reviewed. The patient is competent. The risks and benefits of the procedure and the sedation optionsand risks were discussed with the patient. Allquestions were answered and informed consent was obtained. Patient identification and proposed procedure were verified by the physician, the nurse, the anesthesiologist, the gyroscopic instrument mechanic and thetechnician in the pre-procedure area in the endoscopy suite. Mental Status Examination: alert and oriented.Airway Examination: normal oropharyngeal airway and neck mobility. Respiratory Examination: clear to auscultation. CV Examination: normal. Prophylactic Antibiotics: The patient does not requireprophylactic antibiotics. Prior Anticoagulants: The patient has taken no anticoagulant or antiplatelet agents. ASA Grade Assessment: III - A patient with systemic disease. After reviewing the risks and benefits,the patient was deemed in satisfactory condition to undergo the procedure. The anesthesia plan was touse monitored anesthesia care (MAC). Immediately priorto administration of medications, the patient was re-assessed for adequacy to receive sedatives. The heart rate, respiratory rate, oxygen saturations, blood pressure, adequacy of pulmonary ventilation,and response to care were monitored throughout the procedure. The physical status of the patient was re-assessed after the procedure. After obtaining informed consent, the endoscope was passed under direct vision. Throughout theprocedure, the patient's blood pressure, pulse, and oxygen saturations were monitored continuously. TheEndoscope was introduced through the mouth, and advanced tothe second part of duodenum. The upper GI endoscopy was accomplished without difficulty. The patienttolerated the procedure well. Findings: The stomach was normal. The examined duodenum was normal. One benign-appearing, intrinsic mild stenosis was found 36 cm from the incisors. This stenosismeasured 1.7 cm (inner diameter) x less than one cm (in length). The stenosis was traversed. A TTS dilatorwas passed through the scope. Dilation with an 18-19-20mm balloon dilator was performed to 20 mm. Thedilation site was examined following endoscope reinsertionand showed complete resolution of luminal narrowing. Estimated blood loss was minimal. Biopsies weretaken with a cold forceps for histology. Estimated blood loss was minimal. Procedure Code(s): --- Professional --- 36938, Esophagogastroduodenoscopy, flexible, transoral; with transendoscopic balloon dilation of esophagus (less than 30 mm diameter) 18549, 59, Esophagogastroduodenoscopy, flexible, transoral; with biopsy, single or multiple Diagnosis Code(s): --- Professional --- R13.10, Dysphagia, unspecified K22.2, Esophageal obstruction CPT copyright 2020 [employer]. All rights reserved. The codes documented in this report are preliminary and upon linux support engineer reviewmay be revised to meet current compliance requirements. LAWRENCE Valle DO 07/23/2025 3:28:26 PM This report has been signed electronically.Lawrence Valle DO Number of Addenda: 0 Note Initiated On: 07/23/2025 3:19 PM Scope In: Scope Out: Endoscopy Department at [facility] - [address] [place] [id number] IMPRESSION: - Normal stomach. - Normal examined duodenum. - Benign-appearing esophageal stenosis. Dilated. Biopsied. Recommendation: - Discharge patient to home. - Soft diet today. - Continue present medications. - Await pathology results. Pasha Quintanilla MD GI~PROCEDURE ORDERABLES Final Re sult * Tissue exam (07/23/2025 3:23 PM EDT) Final Diagnosis A. Esophagus, biopsies: - Esophageal squamous mucosa with rare intraepithelial eosinophil (up to 1 eosinophil per hpf). 07/27/2025 9:[address] [facility] at 0916 EDT Gross Description A. Esophagus, biopsies: Labeled esophagus . Received in formalin are two irregular pink-white mucosal tissue fragments, each measuring approximately 0.2 cm in greatest dimension, which are wrapped in paper and submitted in toto in one cassette, two pieces, multiple levels on one side. GEETA 07/27/2025 9:[address] [facility] Disclaimer Unless otherwise specified, all tissue is 10% NB formalin fixed and paraffin embedded. 07/27/2025 9:[address] [facility] Tissue Esophageal structure / Unknown 07/23/2025 3:23 PM EDT 07/24/2025 6:23 AM EDT us Lawrence Valle DO LAB PATHOLOGY ORDERABLES Final R esult [facility] [address] [place] [address], * Microalbumin creatinine urine ratio (06/25/2025 4:05 PM EDT) Creatinine, Urine 93.0 mg/dL LAB CHEMISTRY METHOD 06/25/2025 7:[address] [facility] Microalb, Ur 24.8 0.0 - 29.0 mg/L LAB CHEMISTRY METHOD 06/25/2025 7:[address] [facility] Microalb/Creat Ratio 27 <30 mg/g creat LAB CHEMISTRY METHOD 06/25/2025 7:[address] [facility] Urine Urine specimen obtained by clean catch procedure / Unknown Non-blood Collection / Unknown 06/25/2025 4:05 PM EDT 06/25/2025 4:05 PM EDT Toy Velásquez MD LAB URINE ORDERABLES Erin l Result Performing Organization Address City/[facility]/ZIP Co de Phone Number [facility] [address] [place] [address], [place] [phone] * (ABNORMAL) Hemoglobin A1c (06/25/2025 4:05 PM EDT) Hemoglobin A1C 8.1(H) <6.5 % LAB CHEMISTRY METHOD 06/25/2025 9:[address] [facility] Mean Bld Glu Estim. 186 mg/dL LAB CHEMISTRY METHOD 06/25/2025 9:[address] [facility] Blood Venous blood specimen / Unknown Venipuncture / Unknown 06/25/2025 4:05 PM EDT 06/25/2025 4:05 PM EDT Toy Velásquez MD LAB BLOOD ORDERABLES Erin l Result [facility] [address] [place] [address], [place] [phone] * Vascular US duplex lower extremity arteries bilateral with AUDREY (06/04/2025 10:37 AM EDT) Left Dist External Iliac PSV 62 cm/s [facility] Left Prox External Iliac PSV 58 cm/s [facility] Left AT dist sys PSV 49 cm/s [facility] Left AT mid sys PSV 53 cm/s [facility] Left AT prox sys PSV 29 cm/s [facility] Left [employer] MEMBER prox sys PSV 83 cm/s [facility] Left mid peroneal sys PSV 66 cm/s [facility] Left popliteal dist sys PSV 62 cm/s [facility] Left popliteal prox sys PSV 112 cm/s [facility] Left PT dist sys PSV 0 cm/s [facility] Left PT mid sys PSV 0 cm/s [facility] Left super femoral dist sys PSV 96 cm/s [facility] Left super femoral mid sys PSV 101 cm/s [facility] Left super femoral prox sys PSV 85 cm/s [facility] Right Dist External Iliac PSV 77 cm/s [facility] Right Prox External Iliac PSV 72 cm/s [facility] Right AT dist sys PSV 79 cm/s [facility] Right AT mid sys PSV 45 cm/s [facility] Right AT prox sys PSV 65 cm/s [facility] Right [employer] MEMBER prox sys PSV 107 cm/s [facility] Right mid peroneal sys PSV 51 cm/s [facility] Right popliteal dist sys PSV 72 cm/s [facility] Right popliteal prox sys PSV 94 cm/s [facility] Right PT dist sys PSV 105 cm/s [facility] Right PT mid sys PSV 109 cm/s [facility] Right PT prox sys PSV 104 cm/s [facility] Right super femoral dist sys PSV 90 cm/s [facility] Right super femoral mid sys PSV 122 cm/s [facility] Right super femoral prox sys PSV 133 cm/s [facility] Right profunda sys PSV 88 cm/s [facility] Left profunda sys PSV 61 cm/s [facility] Right arm BP 119 mmHg [facility] Left arm BP 121 mmHg [facility] Right posterior tibial 160 mmHg [facility] Right Dorsalis Pedis 161 mmHg [facility] Right AUDREY 1.33 [facility] Left posterior tibial 161 mmHg [facility] Left Dorsalis Pedis 152 mmHg [facility] Left AUDREY 1.33 [facility] Anatomical Region Laterality Modality Vascular, Abdomen Ultrasound Narrative 06/09/2025 5:17 PM EDT Right: The AUDREY is 1.33 which is normal. Normal pulse volume waveform at the right ankle. Normal amplitude PPG waveform in the digit. There is mild atherosclerotic palque in the right lower extremity arteries. There is no significant stenosis. 3-vessel runoff is noted in the right calf. Left: The AUDREY is 1.33 which is normal. Normal pulse volume waveform at the left ankle. Normal amplitude PPG waveform in the digit. There is mild atherosclerotic palque in the left lower extremity arteries. 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 2-vessel runoff is noted in the left calf. Right Lower Arterial Duplex The distal external iliac artery has triphasic flow. The common femoral artery has triphasic flow. The profunda femoris artery has biphasic flow. The superficial femoral artery has triphasic flow. The popliteal artery has triphasic flow. The anterior tibial artery has triphasic flow. The posterior tibial artery has triphasic flow. The mid peroneal artery has triphasic flow. Left Lower Arterial Duplex The distal external iliac artery has triphasic flow. The common femoral artery has triphasic flow. The profunda femoris artery has biphasic flow. The superficial femoral artery has triphasic flow. The popliteal artery has biphasic flow. The anterior tibial artery has biphasic flow. The posterior tibial artery is occluded. The mid peroneal artery has biphasic flow. Real Estate Processor Details A avalos scale, color and doppler analysis ultrasound was performed. During the study longitudinal views were obtained. Continuous wave doppler, pulsed wave doppler and pulsed volume recording (PVR) was performed. Overall the study quality was poorly visualized and technically difficult. Study was technically difficult due to: body habitus and diffuse subcutaneous edema. Sherry Felix MD CV VASCULAR PROCEDURES Fi nal Result * External Colonoscopy Report (06/03/2025 2:40 PM EDT) Anatomical Region Laterality Modality Endoscopy Historical Provider GI~PROCEDURE ORDERABLES F inal Result * (ABNORMAL) Comprehensive metabolic panel (03/25/2025 12:53 PM EDT) Sodium 142 133 - 145 mmol/L LAB CHEMISTRY METHOD 03/25/2025 8:[address] [facility] Potassium 3.9 3.5 - 5.5 mmol/L LAB CHEMISTRY METHOD 03/25/2025 8:[address] [facility] Chloride 106 96 - 110 mmol/L LAB CHEMISTRY METHOD 03/25/2025 8:[address] [facility] CO2 31 21 - 32 mmol/L LAB CHEMISTRY METHOD [facility] An[facility] Gap 5 3 - 11 LAB CHEMISTRY METHOD 03/25/2025 8:26 PM [facility] Glucose 150(H) 70 - 100 mg/dL LAB CHEMISTRY METHOD 03/25/2025 8:26 PM [facility] BUN 19 5 - 25 mg/dL LAB CHEMISTRY METHOD 03/25/2025 8:26 PM [facility] Creatinine 1.57(H) 0.70 - 1.30 mg/dL LAB CHEMISTRY METHOD 03/25/2025 8:26 PM [facility] eGFR 44(L) >=60 mL/min/1. 73m2 LAB CHEMISTRY METHOD 03/25/2025 8:26 PM [facility] Comment:Calculation based on the Chronic Kidney Disease Epidemiology Collaboration (CKD-EPI) equation refit without adjustment for race. BUN/Creatinine Ratio 12.1 LAB CHEMISTRY METHOD 03/25/2025 8:26 PM [facility] Calcium 8.7 8.5 - 10.5 mg/dL LAB CHEMISTRY METHOD 03/25/2025 8:26 PM [facility] AST (SGOT) 23 10 - 42 unit/L LAB CHEMISTRY METHOD 03/25/2025 8:26 PM [facility] ALT (SGPT) 29 10 - 60 unit/L LAB CHEMISTRY METHOD 03/25/2025 8:26 PM [facility] Alkaline Phosphatase 102 42 - 121 unit/L LAB CHEMISTRY METHOD 03/25/2025 8:26 PM [facility] Total Protein 7.9 6.0 - 8.0 g/dL LAB CHEMISTRY METHOD 03/25/2025 8:26 PM [facility] Albumin 3.2 3.2 - 5.0 g/dL LAB CHEMISTRY METHOD 03/25/2025 8:26 PM [facility] Total Bilirubin 0.3 0.0 - 1.4 mg/dL LAB CHEMISTRY METHOD 03/25/2025 8:[address] [facility] Blood Venous blood specimen / Unknown Venipuncture / Unknown 03/25/2025 12:53 PM EDT 03/25/2025 12:53 PM EDT Toy Velásquez MD LAB BLOOD ORDERABLES Erin l Result [facility] [address] [place] [address], [place] [phone] * (ABNORMAL) Lipid panel (04/17/2023) LDL/HDL Ratio 4 0 - 4 Triglycerides 234(A) 0 - 150 mg/dL Cholesterol 158 0 - 200 mg/dL HDL 40 >=40 mg/dL LDL Cholesterol 72 0 - 100 mg/dL Blood Venous blood specimen / Unknown Historical Provider LAB BLOOD ORDERABLES Erin l Result from Last 3 Months or Most Recently Relevant to Health Maintenance Insurance MEDICAID - [place] MEDICARE Care Teams Undercutter Operator Relationship Specialty Start Date End Date Sobia Maya MD [address] [facility] [place] [phone] PCP - General Internal Medicine 06/09/25
== END 2025-08-26 11:01 | disposition home or self-care (01) ==
LOC: HO.HSM 10:23
PROVIDERS: PCP Internal Medicine; Referring Provider Internal Medicine; Visit Provider Psychiatry & Neurology Neurology
DX: G30.9 Alzheimer's disease, unspecified (principal); F02.80 Dementia in other diseases classified elsewhere, unspecified severity, without behavioral disturbance, psychotic disturbance, mood disturbance, and anxiety; G44.209 Tension-type headache, unspecified, not intractable; R42 Dizziness and giddiness
CPT/HCPCS: 99214

== ENCOUNTER 2025-08-26 10:22 | Outpatient (REF) | payer MEDICARE, MEDICAID, SELFPAY ==
[2025-08-26 11:31] LABS: MANUAL DIFF FLAG NO
[2025-08-26 11:48] LABS: Hematocrit 47.3 % (42.0-52.0); Hemoglobin 13.9 g/dl (14.0-18.0); Imm Gran Abs Auto 0.03 X10*3/uL (0.00-0.03); Imm Gran Pct Auto 0.3 % (0.0-0.4); Lymphocytes Absolute Auto 2.5 X10*3/uL (1.2-4.9); Mean Corpuscular HGB Conc 29.4 g/dl (31.0-36.0); Mean Corpuscular Hemoglobin 25.2 pg (27.0-33.0); Mean Corpuscular Volume 85.7 fL (80.0-98.0); NRBC Abs Auto 0.000 X10*3/uL (0.0-0.012); NRBC Pct Auto 0.0 /100WBC (0.0-0.2); Platelet Count 209 X10*3/uL (160-400); Red Blood Count 5.52 X10*6/uL (4.60-5.80); White Blood Count 8.7 X10*3/uL (4.8-10.8)
[2025-08-26 12:23] LABS: Anion Gap 10 (12-20); Blood Urea Nitrogen 23 mg/dL (9-16); Calcium 9.2 mg/dL (8.4-10.2); Carbon Dioxide 33 mmol/L (22-29); Chloride 103 mmol/L (96-108); Estimated Glomerular Filt Rate 43; Potassium 4.2 mmol/L (3.3-5.1); Sodium 142 mmol/L (135-145)
== END 2025-08-26 10:23 | disposition home or self-care (01) ==
LOC: HO.LAB 10:22
PROVIDERS: PCP Internal Medicine; Referring Provider Internal Medicine; Visit Provider Psychiatry & Neurology Neurology
DX: G44.209 Tension-type headache, unspecified, not intractable (principal); G30.9 Alzheimer's disease, unspecified; F02.80 Dementia in other diseases classified elsewhere, unspecified severity, without behavioral disturbance, psychotic disturbance, mood disturbance, and anxiety; R42 Dizziness and giddiness; E11.9 Type 2 diabetes mellitus without complications
CPT/HCPCS: 36415; 80048; 82550; 84443; 85025; 99212